=== PATIENT | female | born 1945 | race Caucasian/White ===

== ENCOUNTER 2022-06-02 19:24 | Inpatient (IN) | payer MEDICARE, SELFPAY ==
--- NOTE | ~2022-06-02 | XR_ITS ---
Portable chest x-ray Comparison: 01/09/2012 Clinical History: CHF Findings: There is minimal patchy haziness to the lung bases bilaterally. No pleural effusion or pne umothorax. Cardiomediastinal silhouette is stable. Bones and soft tissues are unremarkable. Impression: Minimal patchy bibasilar haziness. Findings could reflect minimal pulmonary edema versus any possibil ity of atypical infection. Reviewed, dictated and finalized at location [] D PANNER Impression: Minimal patchy bibasilar haziness. Findings could reflect minimal pulmonary noe ma versus any possibility of atypical infection.
[2022-06-02 19:47] VITALS: BMI 26.4
[2022-06-02 20:00] VITALS: O2SAT 94
--- NOTE | 2022-06-02 20:20 | ADMGEN ---
This patient, Janna Bustos, was admitted to 2nd Floor Room 205-1. Patient/family oriented to hospital policies and general routines including ID bracelet, bed and alarms, visiting hours, pain management, procedures, bathroom and other care routines, personal items, smoking policy, room service/diet, and visiting hours. Daughter to bring in paperwork. Daughter has unpacked her belongings in closet. Information on how to activate the Rapid Response Team has been discussed. Patient/Family are encouraged to report perceived risks to care and to ask questions if they do not understand what they are told or what they should do.
[2022-06-02 23:31] VITALS: BP 163/69; PULSE 74; RESP 16; TEMP 36.3; O2SAT 94
[2022-06-03] MEDS: BENZONATATE 100 MG CAPSULE PO (00:47)
--- NOTE | 2022-06-03 03:58 | PC.NURSE ---
0300 report from roseann du. resumed care no questions or concerns at this time. 0325 pt sleeping. respirations even and unlabored. call voss and bedside table in reach.
--- NOTE | 2022-06-03 05:01 | PC.NURSE ---
pt denies nausea or need for nausea medications at this time
--- NOTE | 2022-06-03 06:48 | PC.NURSE ---
report to SRINIVASAN Kidd
[2022-06-03 08:00] VITALS: BP 155/64; PULSE 76; RESP 16; TEMP 36.6; O2SAT 93
--- NOTE | 2022-06-03 08:59 | PM.IMHP ---
H&P: HPI History of Present Illness Date/Time: 06/03/22 08:59 Chief Complaint: Weakness, Pneumonia, Hyponatremia Narrative: this is is a 76-year-old female that presented to [facility] with community-acquired pneumonia was treated with IV antibiotics given some IV steroids did not require oxygen and was found to be hypokalemic that was treated with oral potassium patient has a past medical history of anxiety, hyperlipidemia, multiple pulmonary nodules, osteopenia, and spinal stenosis CTA was negative for C for PE patient's labs on discharge is WBC 6.8, hemoglobin 10.7, platelets 269, sodium was 136, potassium 3.4, glucose was 112, BUN 7, creatinine 0.47. Patient has come to us for a swing bed at this time where she will try to get stronger so that she can go home with her family. Review of Systems Review of Systems: Shortness of breath, tired, weakness All systems reviewed & are unremarkable except as noted in HPI and below PMFSH Social History Social History Smoking status: Never smoker Second hand tobacco smoke exposure: Yes Alcohol intake: never Substance use: never Substance use type: does not use Lack of Transportation: No Lack of Food: Never True Current Housing: I Have Housing Concerned About Future Housing: No Difficulty Paying Gas/Electric Bills: No Difficulty Paying for Meds: No Currently Unemployed: No Education: High School Diploma/GED Difficulty w/ Childcare or Family Care: No Living arrangements: alone Occupation/Education: retired Gender identity (if verbalized by the patient): Female Sexual Orientation (if Verbalized by the Patient): Straight or Heterosexual Spiritual care concerns: No Agree to blood products: Yes Meds Home Medications and Allergies Home Medications Medication Instructions Recorded Confirmed Type alprazolam 0.25 mg tablet 0.25 mg PO HS PRN Sleep 06/02/22 06/02/22 History azithromycin 250 mg tablet 250 mg PO ONCE 06/02/22 06/02/22 History benzonatate 100 mg capsule 100 mg PO TID PRN Cough 06/02/22 06/02/22 History betamethasone dipropionate 0.05 % 1 applic topical DAILY PRN Rash 06/02/22 06/02/22 History topical cream cefdinir 300 mg capsule 600 mg PO DAILY 06/02/22 06/02/22 History clobetasol 0.05 % topical cream 1 applic topical BID 06/02/22 06/02/22 History furosemide 20 mg tablet 20 mg PO DAILY 06/02/22 06/02/22 History mometasone 0.1 % topical solution 1 applic topical DAILY PRN Itching 06/02/22 06/02/22 History naproxen 500 mg tablet 500 mg PO BID 06/02/22 06/02/22 History triamcinolone acetonide 0.1 % 1 applic topical BID PRN Itching 06/02/22 06/02/22 History topical cream Allergies Allergy/AdvReac Type Severity Reaction Status Date / Time adhesive tape Allergy Intermediate Rash Verified 06/02/22 19:45 codeine Allergy Vomiting Verified 06/02/22 19:46 Vital Signs Vital Signs - 24 hr 06/02/22 20:00 06/02/22 23:31 Temperature 97.4 F L Pulse Rate 74 Respiratory Rate 16 Blood Pressure 163/69 H Pulse Oximetry 94 94 Oxygen Delivery Room Air Room Air Exam Narrative: GENERAL Ill-appearing, well-nourished, and in no acute distress. HEAD:Normocephalic, atraumatic. EYES: PERRLA and EOMI. ENT: Nares clear, no rhinorrhea or epistaxis. Mucous membranes moist. CHEST: Clear to diminished auscultation. No respiratory distress. HEART: Regular rate and rhythm. Normal peripheral pulses. ABDOMEN: Soft, nontender, nondistended, normal active bowel sounds. EXTREMITIES: Normal range of motion. No edema. SKIN: Warm, dry, no rash. NEURO: No focal deficits. Alert and oriented x3. lethargy Assessment and Plan Assessment and plan (1) Pneumonia: Code(s): J18.9 - Pneumonia, unspecified organism Status: Acute Assessment and Plan: Oral antibiotic Inhaler as indicated oxygen as needed steroids tapered dose (2) Shortness of forest
[2022-06-03] MEDS: FUROSEMIDE 20 MG TABLET PO (09:01)
[2022-06-03] MEDS: CEFDINIR 300 MG CAPSULE 600 MG PO (09:01)
[2022-06-03] MEDS: AZITHROMYCIN 250 MG TABLET PO (09:02)
[2022-06-03] MEDS: CLOBETASOL PROPIONATE 0.05% CREAM 30 GM 1 APPLIC TOPICAL ×2 (09:04→16:59)
[2022-06-03] MEDS: TRIAMCINOLONE ACET 0.1% CREAM 15 GM TUBE 1 APPLIC TOPICAL (09:05)
[2022-06-03 16:00] VITALS: BP 130/61; PULSE 74; RESP 18; TEMP 36.6; O2SAT 95
[2022-06-04] VITALS: BP 179/63; PULSE 90; RESP 20; TEMP 35.7; O2SAT 93
[2022-06-04 07:20] LABS: Anion Gap 5 mmol/L (8-16); Blood Urea Nitrogen 9 mg/dL (7-18); Calcium 8.5 mg/dL (8.5-10.1); Carbon Dioxide 31 mmol/L (21-32); Chloride 104 mmol/L (98-108); Estimated CRCL calculation 54 ml/min; Estimated Glomerular Filt Rate > 60; Glucose 113 mg/dL (70-99); Osmolality Calculated 289 mOsm/kg (285-295); Potassium 3.6 mmol/L (3.5-5.1); Sodium 140 mmol/L (136-145)
[2022-06-04 08:00] VITALS: BP 136/59; PULSE 74; RESP 16; TEMP 36.6; O2SAT 91
[2022-06-04] MEDS: CEFDINIR 300 MG CAPSULE 600 MG PO (08:28)
[2022-06-04] MEDS: FUROSEMIDE 20 MG TABLET PO (08:29)
[2022-06-04] MEDS: CLOBETASOL PROPIONATE 0.05% CREAM 30 GM 1 APPLIC TOPICAL ×2 (08:29→17:17)
[2022-06-04] MEDS: amLODIPine BESYLATE 5 MG TABLET PO (10:05)
[2022-06-04 16:00] VITALS: BP 149/68; PULSE 77; RESP 16; TEMP 36.1; O2SAT 94
[2022-06-05] VITALS: BP 154/67; PULSE 64; RESP 20; TEMP 35.7; O2SAT 94
[2022-06-05 07:45] VITALS: BP 148/71; PULSE 82; RESP 18; TEMP 37.1; O2SAT 93
[2022-06-05] MEDS: NAPROXEN 250 MG TABLET 500 MG PO ×2 (09:11→17:43)
[2022-06-05] MEDS: FUROSEMIDE 20 MG TABLET PO (09:12)
[2022-06-05] MEDS: amLODIPine BESYLATE 5 MG TABLET PO (09:12)
[2022-06-05] MEDS: CEFDINIR 300 MG CAPSULE 600 MG PO (09:12)
[2022-06-05] MEDS: CLOBETASOL PROPIONATE 0.05% CREAM 30 GM 1 APPLIC TOPICAL ×2 (09:13→17:43)
[2022-06-05 16:15] VITALS: BP 141/63; PULSE 83; RESP 20; TEMP 36.5; O2SAT 99
[2022-06-05] MEDS: BENZONATATE 100 MG CAPSULE PO (23:47)
[2022-06-05] MEDS: ACETAMINOPHEN 325 MG TABLET 650 MG PO (23:48)
[2022-06-06] VITALS: BP 147/73; PULSE 84; RESP 18; TEMP 36.6; O2SAT 95
[2022-06-06 07:35] VITALS: BP 127/59; PULSE 81; RESP 18; TEMP 36.2; O2SAT 96
[2022-06-06] MEDS: CEFDINIR 300 MG CAPSULE 600 MG PO (09:11)
[2022-06-06] MEDS: FUROSEMIDE 20 MG TABLET PO (09:11)
[2022-06-06] MEDS: CLOBETASOL PROPIONATE 0.05% CREAM 30 GM 1 APPLIC TOPICAL ×2 (09:11→17:55)
[2022-06-06] MEDS: amLODIPine BESYLATE 5 MG TABLET PO (09:11)
[2022-06-06] MEDS: NAPROXEN 250 MG TABLET 500 MG PO ×2 (09:12→17:56)
[2022-06-06 16:25] VITALS: BP 134/58; PULSE 87; RESP 18; TEMP 36.2; O2SAT 96
[2022-06-06 23:23] VITALS: BP 152/64; PULSE 82; RESP 20; TEMP 36.1; O2SAT 96
[2022-06-07] MEDS: BENZONATATE 100 MG CAPSULE PO (01:10)
[2022-06-07 08:00] VITALS: BP 140/60; PULSE 74; RESP 18; TEMP 36.4; O2SAT 95
[2022-06-07] MEDS: amLODIPine BESYLATE 5 MG TABLET PO (09:04)
[2022-06-07] MEDS: CEFDINIR 300 MG CAPSULE 600 MG PO (09:05)
[2022-06-07] MEDS: CLOBETASOL PROPIONATE 0.05% CREAM 30 GM 1 APPLIC TOPICAL ×2 (09:05→17:33)
[2022-06-07] MEDS: FUROSEMIDE 20 MG TABLET PO (09:05)
[2022-06-07] MEDS: NAPROXEN 250 MG TABLET 500 MG PO ×2 (09:06→17:32)
[2022-06-07] MEDS: ACETAMINOPHEN 325 MG TABLET 650 MG PO (11:53)
--- NOTE | 2022-06-07 12:52 | PM.EVENT ---
Event Note Event Note Event Note: spoke with patient's POA who was concerned about a lab that was completed at an outside hospital her BNP. I explained to patient's POA that a BnP can be elevated for several reasons but I will order a chest x-ray to rule out uncompensated congestive heart failure. patient denies any shortness of breath she does not have any lower extremity edema. She does complain discomfort when she inhales she was previously diagnosed with pneumonia. Chest x-ray pending
[2022-06-07 13:29] LABS: Hematocrit 37.4 % (35.0-42.0); Hemoglobin 12.5 g/dL (11.7-13.8); Mean Corpuscular HGB Conc 33.4 g/dL (32.0-36.0); Mean Corpuscular Hemoglobin 29.5 pg (27.0-31.0); Mean Corpuscular Volume 88.2 fL (78.0-102.0); Mean Platelet Volume 9.1 fl (9.2-11.8); Platelet Count Result 462 K/mm3 (150-420); Red Blood Count 4.24 M/mm3 (4.20-5.40); Red Cell Distribution Width 11.7 % (11.6-14.4); White Blood Count 5.7 K/mm3 (4.8-10.8)
[2022-06-07 13:40] LABS: Anion Gap 7 mmol/L (8-16); Blood Urea Nitrogen 16 mg/dL (7-18); Calcium 8.5 mg/dL (8.5-10.1); Carbon Dioxide 30 mmol/L (21-32); Chloride 99 mmol/L (98-108); Estimated CRCL calculation 37 ml/min; Estimated Glomerular Filt Rate 53; Glucose 118 mg/dL (70-99); Osmolality Calculated 284 mOsm/kg (285-295); Potassium 3.7 mmol/L (3.5-5.1); Sodium 136 mmol/L (136-145)
[2022-06-07 16:00] VITALS: BP 127/59; PULSE 84; RESP 18; TEMP 35.9; O2SAT 96
[2022-06-07 23:57] VITALS: BP 123/60; PULSE 80; RESP 18; TEMP 36.2; O2SAT 97
[2022-06-08 08:00] VITALS: BP 132/64; PULSE 78; RESP 18; TEMP 36.2; O2SAT 97
[2022-06-08] MEDS: CLOBETASOL PROPIONATE 0.05% CREAM 30 GM 1 APPLIC TOPICAL ×2 (08:54→17:23)
[2022-06-08] MEDS: NAPROXEN 250 MG TABLET 500 MG PO ×2 (08:56→17:23)
[2022-06-08] MEDS: amLODIPine BESYLATE 5 MG TABLET PO (08:57)
[2022-06-08] MEDS: FUROSEMIDE 20 MG TABLET PO (08:57)
[2022-06-08 15:33] VITALS: BP 138/74; PULSE 76; RESP 16; TEMP 36.3; O2SAT 96
[2022-06-09] VITALS: BP 148/64; PULSE 80; RESP 20; TEMP 35.9; O2SAT 96
[2022-06-09 08:00] VITALS: BP 142/64; PULSE 74; RESP 16; TEMP 36.5; O2SAT 97
[2022-06-09] MEDS: FUROSEMIDE 20 MG TABLET PO (08:52)
[2022-06-09] MEDS: NAPROXEN 250 MG TABLET 500 MG PO ×2 (08:52→17:09)
[2022-06-09] MEDS: amLODIPine BESYLATE 5 MG TABLET PO (08:53)
[2022-06-09] MEDS: CLOBETASOL PROPIONATE 0.05% CREAM 30 GM 1 APPLIC TOPICAL ×2 (08:54→17:09)
[2022-06-09 16:00] VITALS: BP 128/64; PULSE 74; RESP 16; TEMP 36.2; O2SAT 97
--- NOTE | 2022-06-09 21:58 | PM.DS ---
DS: Admitting Diagnosis Discharge Date 06/10/2022 Admitting Diagnosis rehab/ weakness DS: Discharge Diagnosis Discharge Diagnosis (1) Pneumonia: Code(s): J18.9 - Pneumonia, unspecified organism Status: Acute Assessment and Plan: Oral antibiotic Inhaler as indicated oxygen as needed steroids tapered dose 06/10/2022 resolved (2) Shortness of breath: Code(s): R06.02 - Shortness of breath Status: Acute Assessment and Plan: Oxygen as indicated breathing treatment prn monitor vitals 06/10/2022 resolved (3) Weakness: Code(s): R53.1 - Weakness Status: Acute Assessment and Plan: PT/OT Evaluate and treat 06/10/2022 outpatient PT (4) Anxiety: Code(s): F41.9 - Anxiety disorder, unspecified Status: Acute Assessment and Plan: Prn medication as indicated (5) HLD (hyperlipidemia): Code(s): E78.5 - Hyperlipidemia, unspecified Status: Acute Assessment and Plan: daily medication as home dosage (6) Renal mass: Code(s): N28.89 - Other specified disorders of kidney and ureter Status: Acute Assessment and Plan: monitor for s/s of uti (7) GERD (gastroesophageal reflux disease): Code(s): K21.9 - Gastro-esophageal reflux disease without esophagitis Status: Acute Assessment and Plan: PPI as indicated DS: Summary Hospital Course Reason for hospitalization: rehab weakness Hospital Course: this is is a 76-year-old female that [facility] was treated with IV antibiotics given some IV steroids did not require oxygen and was found to be hypokalemic that was treated with oral potassium patient has a past medical history of anxiety, hyperlipidemia, multiple pulmonary nodules, osteopenia, and spinal stenosis CTA was negative for C for PE patient's labs on discharge is WBC 6.8, hemoglobin 10.7, platelets 269, sodium was 136, potassium 3.4, glucose was 112, BUN 7, creatinine 0.47. Patient has came to us for a swing bed?. Patient denies SOB, CP, palpitation, extremity numbness, lightheadness, dizziness, constipation, diarrhea, or chills or fever. Patient agree that they are ready for discharge and discharge plan. Patient able to ambulate 100 ft with standby assist. patient will discharge home with PT. Discharge instructions reviewed with patient, as well as provided in writing per nursing staff. The instructions also include specific and strict return/GO TO THE ER as well as f/u information. All questions have been answered, and the patient and/or family deny any further questions with discharge and discharge plan. Time Spent with Patient Time attestation: Total time spent providing and/or coordinating discharge services: Exam Narrative: GENERAL Ill-appearing, well-nourished, and in no acute distress. HEAD:Normocephalic, atraumatic. EYES: PERRLA and EOMI. ENT: Nares clear, no rhinorrhea or epistaxis. Mucous membranes moist. CHEST: Clear to diminished auscultation. No respiratory distress. HEART: Regular rate and rhythm. Normal peripheral pulses. ABDOMEN: Soft, nontender, nondistended, normal active bowel sounds. EXTREMITIES: Normal range of motion. No edema. SKIN: Warm, dry, no rash. NEURO: No focal deficits. Alert and oriented x3. lethargy Discharge Plan Discharge Attending physician on discharge: Aaron Martínez Discharging Clinician: Ninoska Escudero Anticipated Discharge Date/Time: 06/09/22 21:52 Patient Disposition: Home Health Service Activity: as tolerated Diet: low sodium Discharge Instructions: Follow up with Primary provider in 1-2 weeks Take medications as prescribed Patient Instructions 1.Fluid intake restricted to 1 to 1.5 L a day. 2.Salt intake restricted: 1 teaspoon of salt equals 2.2 g of sodium. Therefore, patients are advised not to exceed 1 teaspoon of salt a day. They nancy
[2022-06-10] VITALS: BP 150/64; PULSE 86; RESP 18; TEMP 36.1; O2SAT 95
[2022-06-10 07:45] VITALS: BP 153/71; PULSE 87; RESP 18; TEMP 36.2; O2SAT 94
[2022-06-10] MEDS: NAPROXEN 250 MG TABLET 500 MG PO (09:01)
[2022-06-10] MEDS: FUROSEMIDE 20 MG TABLET PO (09:01)
[2022-06-10] MEDS: amLODIPine BESYLATE 5 MG TABLET PO (09:01)
[2022-06-10] MEDS: CLOBETASOL PROPIONATE 0.05% CREAM 30 GM 1 APPLIC TOPICAL (09:02)
--- NOTE | 2022-06-10 12:50 | PC.NURSE ---
Patient discharging home with [facility] to follow. All patients belongings gathered together and sent home with patient. All discharge instructions and education reviewed with patient and patients daughter. Both parties report understanding. All questions answered. Patient taken down to front door via wheelchair by this nurse. Left via private vehicle with daughter.
--- NOTE | 2022-06-12 13:15 | PC.NURSE ---
Pt states she received and understood her discharge instructions. Pt also states you guys were fantastic with everything .
== END 2022-06-10 12:50 | disposition home health service (06) | DRG 947 ==
PROVIDERS: Nurse Practitioner; Nurse Practitioner Family; Admitting Provider Internal Medicine; Visit Provider Internal Medicine
DX: R53.1 Weakness (principal); J18.9 Pneumonia, unspecified organism; E78.5 Hyperlipidemia, unspecified; K21.9 Gastro-esophageal reflux disease without esophagitis; M48.00 Spinal stenosis, site unspecified; F41.9 Anxiety disorder, unspecified; Z86.711 Personal history of pulmonary embolism
CPT/HCPCS: 36415; 71045; 80048; 85027; 97110; 97112; 97162; 97165; 97530; 97535; A9270

== ENCOUNTER 2022-07-31 15:13 | Outpatient (CLI) | payer MEDICARE, SELFPAY ==
[2022-07-31 15:58] LABS: Anion Gap 7 mmol/L (8-16); Blood Urea Nitrogen 20 mg/dL (7-18); Calcium 8.9 mg/dL (8.5-10.1); Carbon Dioxide 30 mmol/L (21-32); Chloride 103 mmol/L (98-108); Estimated Glomerular Filt Rate > 60; Glucose 117 mg/dL (70-99); Magnesium 2.1 mg/dL (1.8-2.4); Osmolality Calculated 293 mOsm/kg (285-295); Sodium 140 mmol/L (136-145)
== END 2022-07-31 15:14 | disposition home or self-care (01) ==
LOC: CHSLAB 15:16
PROVIDERS: PCP Family Medicine; Visit Provider Internal Medicine Cardiovascular Disease
DX: I50.9 Heart failure, unspecified (principal)
CPT/HCPCS: 36415; 80048; 83735

== ENCOUNTER 2024-02-11 13:25 | Emergency (ER) | payer MEDICARE, SELFPAY ==
[2024-02-11] VITALS (19 sets, daily range): BP systolic 119–133; BP diastolic 50–61; PULSE 61–75; RESP 17–27; TEMP 35.8–36.1; O2SAT 92–100
--- NOTE | ~2024-02-11 | XR_ITS ---
XR chest 1V portable Ordering provider: Cesar Blanco DO History: 78 years Female with . chronic cough, burning throat, dyspnea X 1 month . Comparison: June 07, 2022 FINDINGS: MEDIASTINUM: The cardiac silhouette is not enlarged. LUNGS: No infiltrates, effusions or pneumothorax. OTHER: No free air under the diaphragm. Degenerative changes of the spine. IMPRESSION: No acute cardiopulmonary pathology. Reviewed, dictated and finalized at location A.
--- NOTE | 2024-02-11 13:36 | ECG_ITS ---
Test Date: 2024-02-11 13:47:04 Measurements Intervals [place] Rate: 65 P: 48 NM: 221 QRS: -14 QRSD: 102 T: 46 QT: 392 QTc: 410 Interpretive Statements SINUS RHYTHM WITH FIRST DEGREE AV BLOCK INCOMPLETE RIGHT BUNDLE BRANCH BLOCK No previous ECG available for comparison Electronically Signed On 02-12-2024 10:08:21 CDT by Yun Hemphill M.D.
--- NOTE | 2024-02-11 13:41 | ED.GENADULT ---
HPI - General Adult General Chief complaint: Shortness of Breath/Dyspnea Stated complaint: upper Time Seen by Provider: 02/11/24 13:31 History of Present Illness HPI narrative: Janna is a 78F with a PMH of HFpEF, HLD, and anxiety that presented to the ED not feeling well. She has had mild dyspnea, a cough, and aches for a month. She saw her PCP that treated her with a Zpack but she did not improve. Over the last few days she has become worse with more fatigue, dyspnea and aches. No chest pain, N/V but she did have one episode of diarrhea. Related Data Home Medications Medication Instructions Recorded Confirmed alprazolam 0.25 mg tablet 0.25 mg PO HS PRN Sleep 06/02/22 02/11/24 clobetasol 0.05 % topical cream 1 applic topical BID 06/02/22 02/11/24 mometasone 0.1 % topical solution 1 applic topical DAILY PRN Itching 06/02/22 02/11/24 ascorbate calcium (vitamin C) 500 250 mg PO DAILY 07/31/22 02/11/24 mg tablet cholecalciferol (vitamin D3) 10 10 mcg PO DAILY 07/31/22 02/11/24 mcg (400 unit) capsule mecobalamin (vitamin B12) 500 mcg 500 mcg PO DAILY 07/31/22 02/11/24 chewable tablet mometasone 50 mcg/actuation nasal 2 spray intranasal DAILY 07/31/22 02/11/24 spray naproxen sodium 220 mg capsule 220 mg PO BID 07/31/22 02/11/24 (Aleve) furosemide 20 mg tablet 20 mg PO DAILY 03/26/23 02/11/24 alendronate 70 mg tablet 70 mg PO WEEKLY 09/24/23 02/11/24 venlafaxine 75 mg tablet,extended 75 mg PO DAILY 09/24/23 02/11/24 release 24 hr cromolyn 100 mg/5 mL oral 100 mg PO QID 02/11/24 02/11/24 concentrate Allergies Allergy/AdvReac Type Severity Reaction Status Date / Time adhesive tape Allergy Intermediate Rash Verified 02/11/24 13:36 codeine Allergy Vomiting Verified 02/11/24 13:36 grape Allergy Unknown Verified 02/11/24 13:36 Review of Systems Review of Systems: All systems reviewed & are unremarkable except as noted in HPI and [facility] History Medical History Bilateral leg edema Fatigue Hyperglycemia Hypokalemia Lesion of right little shell tribe ureter Lesion of spleen Lung nodule Overweight Vitamin D deficiency Social History Social History Smoking status: Never smoker Second hand tobacco smoke exposure: Yes Alcohol intake: never Substance use: never Substance use type: does not use Lack of Transportation: No Lack of Food: Never True Current Housing: I Have Housing Concerned About Future Housing: No Difficulty Paying Gas/Electric Bills: No Difficulty Paying for Meds: No Currently Unemployed: No Education: High School Diploma/GED Difficulty w/ Childcare or Family Care: No Living arrangements: alone Occupation/Education: retired Gender identity (if verbalized by the patient): Female Sexual Orientation (if Verbalized by the Patient): Straight or Heterosexual Spiritual care concerns: No Agree to blood products: Yes Exam Const: General: cooperative, healthy appearing, comfortable, no acute distress, well developed, alert, awake and Physically active Orientation/consciousness: oriented to person, oriented to place and oriented to time HENMT: Head: normal to inspection, normocephalic and atraumatic Ears: hearing grossly normal bilaterally and external ears normal Face/Nose/Sinus: Normal external nose present Eyes: General: appearance normal, both eyes and all related structures Periorbital: periorbital findings normal Sclera: sclerae normal Pupils: Equal, round and reactive pupils present Neck: Neck: normal visual inspection Chest: Chest palpation & inspection: normal inspection of the chest Resp: Effort & Inspection: normal respiratory effort, able to speak in complete sentences and no respiratory distress Other: tachypnea Cardio: Jugular venous distension: no JVD Rate: regular rate Rhythm: regular rhythm Skin: General skin
[2024-02-11 13:55] LABS: Eosinophils Absolute Auto 0.01 K/mm3 (0.02-0.50); Eosinophils Percent Auto 0.2 % (1.0-6.0); Hematocrit 38.7 % (35.0-42.0); Hemoglobin 13.4 g/dL (11.7-13.8); Immature Granulocyte Absolute 0.02 K/mm3 (0.00-0.00); Immature Granulocyte Percent A 0.4 % (0.0-0.0); Lymphocytes Absolute Auto 0.61 K/mm3 (1.10-4.50); Lymphocytes Percent Auto 12.1 % (18.0-42.0); Mean Corpuscular HGB Conc 34.6 g/dL (32-36); Mean Corpuscular Hemoglobin 29.9 pg (27.0-31.0); Mean Corpuscular Volume 86.4 fL (78.0-102.0); Mean Platelet Volume 9.1 fl (9.2-11.8); Monocytes Percent Auto 7.9 % (2.0-11.0); Neutrophils Percent Auto 79.4 % (50.0-70.0); Platelet Count Result 387 K/mm3 (150-420); Red Blood Count 4.48 M/mm3 (4.20-5.40)
[2024-02-11 14:07] LABS: Prothrombin Time 10.6 Seconds (9.50-12.1)
[2024-02-11 14:20] LABS: Alanine Aminotransferase 23 U/L (14-59); Albumin Level 3.3 g/dL (3.4-5.0); Alkaline Phosphatase 103 U/L (46-116); Anion Gap 7 mmol/L (4-12); Aspartate Amino Transferase 17 U/L (15-37); Blood Urea Nitrogen 15 mg/dL (7-18); Calcium 8.7 mg/dL (8.5-10.1); Carbon Dioxide 30 mmol/L (21-32); Chloride 100 mmol/L (98-108); Estimated CRCL calculation 41 ml/min; Estimated Glomerular Filt Rate > 60; Glucose 162 mg/dL (70-99); NT Pro B Type Natriuretic Pept 256 pg/mL (0-450); Osmolality Calculated 288 mOsm/kg (285-295); Potassium 3.9 mmol/L (3.5-5.1); Sodium 137 mmol/L (136-145); Total Protein 7.3 g/dL (6.4-8.2)
[2024-02-11 14:21] LABS: Troponin I < 4.0 ng/L (0.00-60.4)
[2024-02-11 14:33] LABS: Influenza A QL RT-PCR Negative (Negative); Influenza B QL RT-PCR Negative (Negative); RSV RNA, RT-PCR Negative (Negative); SARS-CoV-2 RNA PCR Negative (Negative)
== END 2024-02-11 15:40 | disposition home or self-care (01) ==
PROVIDERS: Emergency Provider Family Medicine; PCP Family Medicine
DX: B34.9 Viral infection, unspecified (principal); R53.83 Other fatigue; E78.5 Hyperlipidemia, unspecified; Z79.899 Other long term (current) drug therapy; Z20.822 Contact with and (suspected) exposure to COVID-19
CPT/HCPCS: 36415; 71045; 80053; 83880; 84484; 85025; 85610; 87637; 93005; 99284

== ENCOUNTER 2024-12-15 08:43 | Outpatient (CLI) | payer MEDICARE, SELFPAY ==
--- NOTE | 2024-12-15 08:50 | EST_ITS ---
Patient Info Name: Janna Bustos Age: 79 years : 1945 Gender: Female Ht: 65 in Wt: 146 lbs BSA: 1.75 m2 HR: 66 bpm BP: 148 / 70 mmHg Heart Rhythm: Sinus Rhythm Technical Quality: Good Exam Date: 12/15/2024 8:50 AM Patient Status: O Admit Date: 12/15/2024 Exam Type: CA stress yohan w NM A regadenoson stress test was performed. Staff Referring Physician: Balaji Ballesteros DO Attending Provider: Balaji Ballesteros DO Summary 1. 1. Negative lexiscan stress test for ischemic ST changes by ECG criteria. 2. 2. Baseline hypertension. 3. 3. Nuclear scan to follow and will be reported separately. Please correlate with it. History/Risk Factors Hypertension: Yes Dyslipidemia: Yes Protocol: LEXISCAN Stress ECG Details Stage: REST Duration (min): 2 min : 13 sec HR (bpm): 67 SBP (mmHg): 148 DBP (mmHg): 70 Stage: REST Duration (min): 11 min : 18 sec HR (bpm): 69 SBP (mmHg): 148 DBP (mmHg): 70 Stage: STAGE 1 Duration (min): 0 min : 48 sec HR (bpm): 73 SBP (mmHg): 148 DBP (mmHg): 70 Stage: RECOVERY Duration (min): 0 min : 12 sec HR (bpm): 76 SBP (mmHg): 148 DBP (mmHg): 70 Stage: RECOVERY Duration (min): 1 min : 12 sec HR (bpm): 101 SBP (mmHg): 148 DBP (mmHg): 70 Stage: RECOVERY Duration (min): 2 min : 12 sec HR (bpm): 85 SBP (mmHg): 154 DBP (mmHg): 70 Stage: RECOVERY Duration (min): 3 min : 12 sec HR (bpm): 87 SBP (mmHg): 149 DBP (mmHg): 70 Stage: RECOVERY Duration (min): 4 min : 12 sec HR (bpm): 85 SBP (mmHg): 152 DBP (mmHg): 72 Stage: RECOVERY Duration (min): 5 min : 12 sec HR (bpm): 82 SBP (mmHg): 152 DBP (mmHg): 71 Stage: RECOVERY Duration (min): 6 min : 12 sec HR (bpm): 83 SBP (mmHg): 154 DBP (mmHg): 73 Stage: RECOVERY Duration (min): 6 min : 26 sec HR (bpm): 81 SBP (mmHg): 154 DBP (mmHg): 73 Rest HR: 69 bpm Peak HR: 110 bpm Rest Sys BP: 148 mmHg Peak Sys BP: 154 mmHg Max Pred HR: 140 bpm % Max Pred HR: 79 % Target HR: 119 bpm Max RPP: 16,940 bpm*mmHg BP Response: Normal blood pressure response Termination Reason: Completed Protocol Cardiac Symptoms: None Total Time: 0 min : 48 sec Rest Polo BP: 70 mmHg Peak Polo BP: 73 mmHg Total Dose: 0.4 mg Resting ECG Sinus rhythm, BRWP. Stress ECG No abnormal ST/T wave changes. Arrhythmias None. Report Signatures
--- NOTE | 2024-12-15 13:17 | WPDCARIOSTRE ---
Nuclear Stress Test INDICATIONS Indications: Dyspnea PROCEDURE Procedure Performed: Myocardial Perf Spect-Multi Procedure: Patient underwent a lexiscan stress test and immediately was injected with 31.9 mCi of cardiolyte. Multiple tomographic images were obtained. These are of good quality. There is no perfusion defects with stress imaging. A separate resting images were obtained after patient was injected with 10.3 mCi of cardiolyte. Multiple tomographic images were obtained. These are of good quality. There is no perfusion defects with rest imaging. CONCLUSION Conclusion: 1. Normal myocardial perfusion imaging demonstrating no perfusion defects with stress or rest imaging. 2. No evidence of reversible ischemia. 3. Left ventriculogram demonstrates normal measured ejection fraction of 71% with no wall motion abnormalities. 4. TID score 1.1 is not elevated.
== END 2024-12-15 08:44 | disposition home or self-care (01) ==
PROVIDERS: PCP Family Medicine; Visit Provider Internal Medicine Cardiovascular Disease
DX: R06.09 Other forms of dyspnea (principal)
CPT/HCPCS: 78452; 93017; A9502; J2785

== ENCOUNTER 2025-01-24 20:09 | Observation (INO) | payer MEDICARE, SELFPAY ==
--- NOTE | ~2025-01-24 | XR_ITS ---
EXAM: XR foot LT 2V DATE: 01/25/2025 09:23 HISTORY: Fall, Lt. foot pain x1 day . COMPARISON: None available. FINDINGS: Osteopenia. No fracture or dislocation. No lytic or blastic lesion. Hallux valgus. Mild de generative change at the first MTP joint and multiple midfoot joints. Achilles and plantar enthesopat hy. No erosion or periosteal change. Soft tissues within normal limits. IMPRESSION: No acute osseous finding in the left foot. Reviewed, dictated and finalized at location K.
--- NOTE | ~2025-01-24 | CT_ITS ---
EXAMINATION: CT cervical spine wo con DATE: 01/24/2025 20:53 INDICATION: FALL. LEFT SIDE NECK PAIN. TECHNIQUE: Computed tomography (CT) of the cervical spine was performed without intravenous contrast. Automated exposure control and iterative reconstruction technique were employed. The dose-length pro duct was 183.41 mGy-cm. COMPARISON: None. FINDINGS: Vertebral Body Alignment: Trace anterolistheses at C4-5 and C7-T1, presumably on a degenerative basis . Mild focal kyphosis at C5-6. Craniocervical and atlantoaxial alignment: Moderate degenerative change. Alignment intact. Osseous structures/fracture: No evidence of a lytic or blastic process in the visualized spine. No e vidence of acute fracture. Cervical soft tissues: The paraspinal soft tissues planes are maintained. Biapical pleural scarring. Degenerative changes: Degenerative changes, without severe neural foraminal or central canal narrowin g. IMPRESSION: No acute fracture or traumatic malalignment in the cervical spine. Reviewed, dictated and finalized at location K.
--- NOTE | ~2025-01-24 | CT_ITS ---
EXAMINATION: CT brain wo con DATE: 01/24/2025 20:52 INDICATION: accidental fall. . TECHNIQUE: Computed tomography (CT) of the head was performed without intravenous contrast. The mA wa s adjusted according to patient size. Iterative reconstruction technique was employed. The dose-lengt h product was 605.33 mGy-cm. COMPARISON: None. FINDINGS: No acute intracranial hemorrhage or extra-axial fluid collection. No hydrocephalus, mass, or herniation. No acute ischemic infarct. Unremarkable dural venous sinus attenuation. No acute osseous abnormality. The aerated spaces are clear. Moderate atrophy and chronic white matter change. Atherosclerotic intracranial calcification. Partial ly empty sella. IMPRESSION: No acute intracranial process. Reviewed, dictated and finalized at location K.
--- NOTE | ~2025-01-24 | CT_ITS ---
EXAMINATION: CT diagnostic chest wo con DATE: 01/24/2025 20:54 INDICATION: FALL. LEFT SIDE CHEST WALL PAIN. LEFT LATERAL RIB PAIN. TECHNIQUE: Computed tomography (CT) of the chest was performed with 100 mL Omnipaque-350 intravenous contrast. Automated exposure control and iterative reconstruction technique were employed. The dose-l ength product was 490.55 mGy-cm. COMPARISON: X-ray chest 01/09/2012. FINDINGS: CHEST: Thoracic aorta: No significant dilation. Mild atherosclerotic calcification. Lung parenchyma and airways: Scattered calcified granulomas. Biapical pleural scarring. Bibasilar sca r/atelectasis. Patent airways. Thoracic inlet, axillae and chest wall: No thyroid or soft tissue mass. No axillary lymphadenopathy. Mediastinum: No mass or lymphadenopathy. Heart and pericardium: Normal heart size. No pericardial effusion. Mild aortic valve calcification. Coronary artery calcifications: Mild. Pleura: No effusion or mass. Upper abdomen: 1.2 cm indeterminate density exophytic right midpole lesion. Hyperdense left renal pro teinaceous or hemorrhagic cyst. Small splenic cyst or hemangioma. Uncomplicated duodenal diverticulum . Thoracic bones: Nondisplaced fractures of the left eighth anterolateral, and ninth lateral, and 10th posterior ribs. Chronic mild height loss at T7 and T8. Chronic appearing mild burst fracture at T11. IMPRESSION: Nondisplaced fractures of left eighth anterolateral, nidus lateral, and 10th posterior ribs. 1.2 cm indeterminate density exophytic right midpole lesion, recommend timely outpatient CT or MRI wi thout and with contrast for further characterization. Reviewed, dictated and finalized at location K. IMPRESSION: Nondisplaced fractures of left eighth anterolateral, nidus lateral, and 10th po sterior ribs. 1.2 cm indeterminate density exophytic right midpole lesion, recommend timely o utpatient CT or MRI without and with contrast for further characterization.
[2025-01-24 20:09] VITALS: BP 175/71; PULSE 70; RESP 16; TEMP 35.9; O2SAT 100
--- OUTSIDE RECORDS SUMMARY | 2025-01-24 20:13 | XMS_ITS | Encounter Summary ---
Author Organization [facility] Address [address] [place] [address] Phone Care Team Providers Care Business Process Architect Name Role Phone Wali Chowdhury MD Primary Care Provider [phone] Rosy Llamas APN, WATCHER LOOKOUT TOWER Unavailable Christi Rg MD Unavailable Reason for Visit * Reason Comments Medication Refill Encounter Details Date Type Department Care Team (Late st Contact Info) Description 09/23/2021 [facility] [place] [phone] Wali Chowdhury MD [address] [address] Medication Refill Social History Tobacco Use Types Packs/Day Years Used Date Smoking Tobacco: Never Smokeless Tobacco: Never Alcohol Use Standard Drinks/Week Comments No 0 (1 standard drink = 0.6 oz pur e alcohol) PHQ-2 Answer Date Recorded Total Score - Questions 1-9 0 10/2021 Sexually Active Control Partners Comments Never Comments No Sex and Gender Information Value Date Recorded Sex Assigned at Not on file Legal Sex Female 11:45 PM CDT Gender Identity Female 05/07/2023 8:21 PM NETWORK 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 Last UDS was 10/2018. Requested Prescriptions Pending Prescriptions Disp Refills ALPRAZolam (XANAX) 0.25 MG Tablet [Pharmacy Med Name: ALPRAZOLAM 0.25 MG TABLET] 30 Tablet 0 Sig: TAKE 1 TABLET BY MOUTH NIGHTLY NEEDED FOR SLEEP OR ANXIETY. Not Delegated - Benzodiazepines Protocol Failed - 09/23/2021 1:08 PM Failed - This refill cannot be delegated Passed - Visit with relevant provider in past 12 months or upcoming 90 days Recent Visits Date Type Provider Dept 06/28/21 Telemedicine Rebeca Grimm PAC [facility] 03/29/21 Office Visit Marty Hoover APRN, [facility] 02/03/21 Office Visit Wali Chowdhury MD [facility] 12/06/20 Office Visit Marty Hoover APRN, [facility] Showing recent visits within past 365 days and meeting all other requirements Future Appointments Date Type Provider Dept 09/27/21 Appointment Wali Chowdhury MD [facility] Showing future appointments within next 90 days and meeting all other requirements documented in this encounter Plan of Treatment Upcoming Encounters Date Type Department Care Team (Late st Contact Info) Description 02/03/2025 10:30 AM CDT Office [address] [facility] - [facility] - [place] [address] [place] [address] Marty Hoover APRN, [place] [facility] [address] [address] documented as of this encounter Visit Diagnoses Diagnosis Anxiety Anxiety state, unspecified documented in this encounter Additional Health Concerns Infection Onset Date Last Indicated Resolved Time COVID - 19 05/29/2022 05/29/2022 05/31/2022 8:12 AM NETWORK SECURITY OFFICER Respiratory Rule-Out 05/29/2022 05/29/2022 022 2:50 PM NETWORK SECURITY OFFICER Respiratory Rule Out - RPA 05/30/2022 05/30/2022 1 08/01/2021 3:50 PM NETWORK SECURITY OFFICER COVID - 19 01/24/2024 01/24/2024 01/24/2024 10:2 8 AM CDT COVID - 19 02/25/2024 02/25/2024 02/25/2024 7:42 PM CDT Respiratory Rule-Out 08/13/2024 08/13/2024 025 7:04 PM NETWORK SECURITY OFFICER COVID - 19 09/10/2024 09/10/2024 09/10/2024 2:03 PM CDT Respiratory Rule-Out 09/10/2024 09/10/2024 025 2:02 PM CDT Assessment Noted Time PHQ-9 Depression Total Score: 1 09/17/19 21 1:27 PM CDT documented as of this encounter Care Teams Business Process Architect Relationship Specialty Start Date End Date Wali Chowdhury MD [address] [address] [place] [address] PCP - General Family Medicine 05/10/15 Rosy Llamas, MATERIAL HANDLER 2ND SHIFT, WATCHER LOOKOUT TOWER [address] [address] [place] [address] Nurse Practitioner Advanced Practice Nurse 12/24/15 Christi Rg MD [address] [place] [address] Consulting Physician Obstetrics & Gynecology 11/26/18 documented as of this encounter
--- OUTSIDE RECORDS SUMMARY | 2025-01-24 20:13 | XMS_ITS | Encounter Summary ---
Author Organization [facility] Address [address] [place] [address] Phone Care Team Providers Care Street Contractor Name Role Phone Wali Chowdhury MD Primary Care Provider [phone] Rosy Llamas APN, PLASTIC DIE MAKER APPRENTICE Unavailable Christi Rg MD Unavailable Reason for Visit * Reason Comments Medication Refill Encounter Details Date Type Department Care Team (Late st Contact Info) Description 02/06/2023 Refill [facility] [address] [place] [phone] Wali Chowdhury MD [address] [address] Medication Refill Social History Tobacco Use Types Packs/Day Years Used Date Smoking Tobacco: Never Smokeless Tobacco: Never Alcohol Use Standard Drinks/Week Comments No 0 (1 standard drink = 0.6 oz pur e alcohol) PHQ-2 Answer Date Recorded Total Score - Questions 1-9 0 04/0 10/2021 Education Answer Date Recorded What is the highest level of school you have completed or the highest degree you have received? 12th grade 06/20/2022 Sexually Active Control Partners Comments Never Comments No Sex and Gender Information Value Date Recorded Sex Assigned at Not on file Legal Sex Female 11:45 PM CDT Gender Identity Female 05/07/2023 8:21 PM R D INTERN Sexual Orientation Not on file documented as of this encounter Miscellaneous Notes * Telephone Encounter - Monica Brunner RN - 02/06/2023 1:18 PM CDT PDMP 11/17/22 30 day supply Medication failed the protocol, provider to review and approve the medication order if appropriate. Requested Prescriptions Pending Prescriptions Disp Refills ALPRAZolam (XANAX) 0.25 MG Tablet [Pharmacy Med Name: ALPRAZOLAM 0.25MG TABLETS] 30 Tablet 0 Sig: TAKE 1 TABLET BY MOUTH EVERY NIGHT FOR SLEEP OR ANXIETY Not Delegated - Benzodiazepines Protocol Failed - 02/06/2023 12:57 PM Failed - This refill cannot be delegated Passed - Visit with relevant provider in past 12 months or upcoming 90 days Recent Visits Date Type Provider Dept 08/23/22 Office Visit Marty Hoover APRN, CNP [facility] 06/21/22 Office Visit Marty Hoover APRN, CNP [facility] 04/13/22 Office Visit Wali Chowdhury MD [facility] [place] Showing recent visits within past 365 days and meeting all other requirements Future Appointments Date Type Provider Dept 02/28/23 Appointment Marty Hoover APRN, CNP [facility] Showing future appointments within next 90 days and meeting all other requirements documented in this encounter Plan of Treatment Upcoming Encounters Date Type Department Care Team (Late st Contact Info) Description 02/03/2025 10:30 AM CDT Office Visit [facility] - Family Medicine - [place] [address] [place] [address] Marty Hoover APRN, [facility] [address] [address] documented as of this encounter Visit Diagnoses Diagnosis Anxiety Anxiety state, unspecified documented in this encounter Additional Health Concerns Infection Onset Date Last Indicated Resolved Time COVID - 19 01/24/2024 01/24/2024 01/24/2024 10:2 8 AM CDT COVID - 19 02/25/2024 02/25/2024 02/25/2024 7:42 PM CDT Respiratory Rule-Out 08/13/2024 08/13/2024 025 7:04 PM R D INTERN COVID - 19 09/10/2024 09/10/2024 09/10/2024 2:03 PM CDT Respiratory Rule-Out 09/10/2024 09/10/2024 025 2:02 PM CDT Assessment Noted Time PHQ-9 Depression Total Score: 1 09/17/19 21 1:27 PM CDT documented as of this encounter Care Teams Street Contractor Relationship Specialty Start Date End Date Wali Chowdhury MD [address] [address] PCP - General Family Medicine 05/10/15 Rosy Llamas, STAMP CLERK, PLASTIC DIE MAKER APPRENTICE [address] [address] Nurse Practitioner Advanced Practice Nurse 12/24/15 Christi Rg MD [address] [facility] [address] [place], [place] [address], [place] [address] Consulting Physician Obstetrics & Gynecology 11/26/18 documented as of this encounter
--- OUTSIDE RECORDS SUMMARY | 2025-01-24 20:13 | XMS_ITS | Clinical Summary ---
Author Organization [facility] Address [address] [place] [address] Care Team Providers Care Pipe Layer Helper Name Role Phone Unavailable Primary Care Provider Unavailabl e Source Comments [facility],non-owned Affiliates and Associated Physician Practices is amultiple site organization consisting of ambulatory clinics and hospital sitesin [place], [place], [place] and [place]. This disclosure is being madepursuant to the Care Everywhere program and may not contain all information available regarding this patient. Last updated 18.[facility] Chalkable Social History Tobacco Use Types Packs/Day Years Used Date Smoking Tobacco: Never Assessed Comments Unknown Sex and Gender Information Value Date Recorded Sex Assigned at Not on file Legal Sex Female 2:50 PM CDT Gender Identity Not on file Sexual Orientation Not on file Plan of Treatment Health Maintenance Due Date Last Done Comments BONE DENSITY TESTING 1945 MEDICARE AWV 12 MONTHS 1945 DTAP/TDAP/TD VACCINES (1 - Tdap) 1963 PNEUMOCOCCAL VACCINE 50+ (1 of 1 - PCV) 1994 ZOSTER VACCINE (1 of 2) 1994 Respiratory Syncytial Virus (RSV) Vaccine Pt: or over 60 yrs (1 - 1-dose 75+ series) 2019 COVID-19 VACCINE ( - 2023-2 5 season) 2024 DEPRESSION SCREENING 06/25/2024 INFLUENZA VACCINE (#1) 2025 HEPATITIS B VACCINE Aged Out No longe r eligible based on patient's age to complete this topic HIB VACCINE Aged Out No longer eligi ble based on patient's age to complete this topic HPV VACCINE Aged Out No longer eligi ble based on patient's age to complete this topic MENINGOCOCCAL (Group B) VACC INE SHARED DECISION-MAKING Aged Out No longer eligibl e based on patient's age to complete this topic MENINGOCOCCAL GROUPS A/C/Y/W VACCINE Aged Out No longer eligible b ased on patient's age to complete this topic Insurance [facility] FIN[facility] FOR [facility] MEDICARE [facility] & [facility]
--- OUTSIDE RECORDS SUMMARY | 2025-01-24 20:13 | XMS_ITS | Encounter Summary ---
Author Organization [facility] Address [address] [place] [address] Care Team Providers Care Transfer And Line Up Worker Name Role Phone Unavailable Primary Care Provider Unavailsamantha e Encounter Details Date Type Department Care Team (Late st Contact Info) Description 12/14/2022 Lab Requisition [facility] - DermPath Lab [address] [place] [address] Daija Maria MD [address] [place], [place] [id number] Social History Tobacco Use Types Packs/Day Years Used Date Smoking Tobacco: Never Assessed Comments Unknown Sex and Gender Information Value Date Recorded Sex Assigned at Not on file Legal Sex Female 2:50 PM CDT Gender Identity Not on file Sexual Orientation Not on file documented as of this encounter Plan of Treatment Not on file documented as of this encounter Procedures Procedure Name Priority Date/Time Associated Diagnosis Comments IMMUNOFLUORESCENT STUDY DERM Routine 12/13/2022 12:00 AM CDT documented in this encounter Results * IMMUNOFLUORESCENT STUDY DERM (12/13/2022 12:00 AM CDT) Case Report Dermatopathol ogy Report Case: [id number] Authorizing Provider: Daija Maria MD Collected: 12/13/2022 12:00 AM Ordering Location: [facility] DermPath Lab Received: 12/14/2022 06:11 AM Pathologist: Ann Almazan MD Specimen: Skin, left mid-upper back 3:17 PM CDT DERMATOPATHOLOGY LABORATORY Final Diagnosis Specimen A. SKIN, left mid-upper back: NO IMMUNOPATHOLO GICAL ABNORMALITY (L98.9) (see fixed tissue results [id number]) 3 3:17 PM CDT DERMATOPATHOLOGY LABORATORY at 1517 CDT Direct Immunofluorescence Report - Specimen A Specimen A IgA IgM IgG C3 CollV Fibrinogen Epidermis Negative Negative Negative Negative Negative Negative Basement Membrane Negative Negative Negative Negative 2+ Negative Vessels Negative Negative Negative Negative 2+ Negative Interstitium Negative Negative Negative Negative Negative Non specific 3 3:17 PM CDT DERMATOPATHOLOGY LABORATORY Clinical History Hypersensitiv ity Reaction vs Drug Rash vs ACD, r/o early BP 3 3:17 PM CDT DERMATOPATHOLOGY LABORATORY Gross Description Specimen A: Received is one Vitor's media filled container labeled with the patient's name and designated left mid-upper back. The specimen consists of a shave biopsy measuring 12x6x1 mm. The specimen is submitted in whole for direct immunofluores cence testing. 3 3:17 PM CDT DERMATOPATHOLOGY LABORATORY Microscopic Description Specimen A. SKIN, left mid-upper back: Controls were run in parallel. Staining is negative with IgA, IgM, IgG, and C3. Collagen IV stains the basement membrane zone and vessels. Fibrinogen shows non-specific staining. A hematoxylin and eosin stained frozen section shows no significant inflammation. See fixed tissue results. 3 3:17 PM CDT DERMATOPATHOLOGY LABORATORY Disclaimer An external and internal positive and negative controls are appropriate for the histochemical , immunohistoch emical and immunofluores cence stain(s) in this case (if any), except where stated explicitly. The performance characteristi cs of the stain(s) cited in this report were developed and its performance characteristi c determined by the Dermatopathol ogy Laboratory at [facility], directed by Dr. Garrett Almazan. These tests need not be, and therefore are not, approved by the [place] Food and Drug Administratio n. The tests are used for clinical purposes. Billing Codes Specimen Charges Stain Charges 25417 30438 [id number] 1 1 1 1 1 1 3 3:17 PM CDT DERMATOPATHOLOGY LABORATORY Embedded Images 3 3:17 PM CDT DERMATOPATHOLOGY LABORATORY Pathology/Cytolog y TISSUE SPECIMEN FROM SKIN / Unknown 12/13/2022 12/14/2022 6:11 AM CDT us Daija Maria MD LAB - PATHOLOGY/CYTOLOGY ABELINOE SAMAN Final Result DERMATOPATHOLOGY LABORATORY [facility] - Department of Dermatology [facility] Medicine [address] [place] [address], [address] [phone] documented in this encounter Visit Diagnoses Not on filedocumented in this encounter
--- OUTSIDE RECORDS SUMMARY | 2025-01-24 20:13 | XMS_ITS | Encounter Summary ---
Author Organization [facility] Address [address] [place] [address] Phone Care Team Providers Care Physician/Internist Name Role Phone Wali Chowdhury MD Primary Care Provider [phone] Rosy Llamas APN, [facility] Unavailable Christi Rg MD Unavailable [phone] Reason for Visit * Reason Comments Medication Refill Encounter Details Date Type Department Care Team (Late st Contact Info) Description 09/26/2023 Refill [facility] - Family Medicine [facility] [address] [place] [phone] Wali Chowdhury MD [address] [address] Medication Refill Social History Tobacco Use Types Packs/Day Years Used Date Smoking Tobacco: Never Smokeless Tobacco: Never Alcohol Use Standard Drinks/Week Comments No 0 (1 standard drink = 0.6 oz pur e alcohol) [facility] Utilities Answer Date Recorded In the past 12 months has [employer], gas, oil, or water company threatened to shut off services in your home? No 09/17/2023 Social Connection and Isolation Panel Answer Date Recorded In a typical week, how many times do you talk on the phone with family, friends, or neighbors? More than three times a week 09/17/2023 How often do you get togethe r with friends or relatives? Three times a week 09/17/2023 How often do you attend chur ch or mandaen services? More than 4 times per year 09/17/2023 Do you belong to any clubs o r organizations such as confucianism groups, unions, fraternal or athletic groups, or school groups? Yes 09/17/2023 How often do you attend meet ings of the clubs or organizations you belong to? More than 4 times per year 09/17/2023 Are you , , di vorced, , never , or living with a partner? 09/17/2023 AUDIT-C Answer Date Recorded Q1: How often do you have a drink containing alcohol? Never 09/17/2023 Q2: How many drinks containi ng alcohol do you have on a typical day when you are drinking? Patient does not drink Q3: How often do you have si x or more drinks on one occasion? Never 09/17/2023 Overall Financial Resource Strain (CARDIA) Answe r Date Recorded How hard is it for you to pa y for the very basics like food, housing, medical care, and heating? Not hard at all 09/17/2023 PHQ-2 Answer Date Recorded Total Score - Questions 1-9 0 04/0 10/2021 [facility] - Occupational Stress Questionnaire Answer Date Recorded Do you feel stress - tense, restless, nervous, or anxious, or unable to sleep at night because your mind is troubled all the time - these days? Rather much 09/17/2023 Exercise Vital Sign Answer Date Recorde d On average, how many days pe r week do you engage in moderate to strenuous exercise (like a brisk walk)? 0 days Minutes of Exercise per Session Not on file 09/17/2023 Hunger Vital Sign Answer Date Recorded Within the past 12 months, y ou worried that your food would run out before you got the money to buy more. Never true 09/17/19 24 Within the past 12 months, t he food you bought just didn't last and you didn't have money to get more. Never true 09/17/2023 PRAPARE - Transportation Answer Date Re corded In the past 12 months, has l ack of transportation kept you from medical appointments or from getting medications? No 08/24 In the past 12 months, has l ack of transportation kept you from meetings, work, or from getting things needed for daily living? No 09/17/2023 Housing Stability Vital Sign Answer Brian e Recorded In the last 12 months, was t here a time when you were not able to pay the mortgage or rent on time? No 09/17/2023 In the last 12 months, how many places have you lived? 1 09/17/2023 In the last 12 months, was t here a time when you did not have a steady place to sleep or slept in a skilled nursing (including now)? No 09/17/2023 Education Answer Date Recorded What is the highest level of school you have completed or the highest degree you have received? 12th grade 06/20/2022 Sexually Active Control Partners Comments Never Comments No Sex and Gender Information Value Date Recorded Sex Assigned at Not on file Legal Sex Female 11:45 PM CDT Gender Identity Female 05/07/2023 8:21 PM RESPIRATORY SCIENTIST Sexual Orientation Not on file documented as of this encounter Miscellaneous Notes * Telephone Encounter - Carmella Kaye RN - 09/26/2023 2:37 PM CDT Medication(s) refilled and signed per [facility] Chronic Medication Refill Standing Order for Pediatricand Adult Patients. Requested Prescriptions Pending Prescriptions Disp Refills furosemide (LASIX) 20 MG Tablet [Pharmacy Med Name: FUROSEMIDE 20MG TABLETS] 90 Tablet 1 Sig: Take 1 Tablet by mouth daily. Diuretics Protocol Passed - 09/26/2023 2:24 PM Passed - Serum potassium on record in past 12 months POTASSIUM Date Value Ref Range Status 02/22/2023 3.8 3.5 - 5.1 mmol/L Final Passed - Serum sodium on record in past 12 months SODIUM Date Value Ref Range Status 02/22/2023 139 136 - 145 mmol/L Final Passed - Blood pressure on record in past 12 months Clinician-entered: BP Readings from Last 3 Encounters: 09/17/23 140/72 02/28/23 122/62 08/23/22 122/66 Patient-entered: No data recorded Passed - Visit with relevant provider in past 12 months or upcoming 90 days Recent Visits Date Type Provider Dept 09/17/23 [facility] Showing recent visits within past 365 days and meeting all other requirements Future Appointments No visits were found meeting these conditions. Showing future appointments within next 90 days and meeting all other requirements Passed - GFR on record in past 12 months GFR, EST. NONAFRICAN Date Value Ref Range Status 02/22/2023 >60 >=60 Final documented in this encounter Plan of Treatment Upcoming Encounters Date Type Department Care Team (Late st Contact Info) Description 02/03/2025 10:30 AM CDT Office Visit [facility] - Family Medicine [facility] [address] [place] [address] Marty Hoover APRN, [facility] [address] [address] documented as of this encounter Visit Diagnoses Diagnosis Chronic heart failure with preserved ejection fraction (HCC) documented in this encounter Additional Health Concerns Infection Onset Date Last Indicated Resolved Time COVID - 19 01/24/2024 01/24/2024 01/24/2024 10:2 8 AM CDT COVID - 19 02/25/2024 02/25/2024 02/25/2024 7:42 PM CDT Respiratory Rule-Out 08/13/2024 08/13/2024 025 7:04 PM RESPIRATORY SCIENTIST COVID - 19 09/10/2024 09/10/2024 09/10/2024 2:03 PM CDT Respiratory Rule-Out 09/10/2024 09/10/2024 025 2:02 PM CDT Assessment Noted Time PHQ-9 Depression Total Score: 1 09/17/19 21 1:27 PM CDT documented as of this encounter Care Teams Physician/Internist Relationship Specialty Start Date End Date Wali Chowdhury MD #[address] [address] PCP - General Family Medicine 05/10/15 Rosy Llamas APN, TOOTH CUTTER SPUR [address] [facility] [address] [address] Nurse Practitioner Advanced Practice Nurse 12/24/15 Christi Rg MD ONE [employer] [address] [address] Consulting Physician Obstetrics & Gynecology 11/26/18 documented as of this encounter
--- OUTSIDE RECORDS SUMMARY | 2025-01-24 20:13 | XMS_ITS | Clinical Summary ---
Author Organization [facility] [address] Address [address] [place] [address] Phone Care Team Providers Care Caddie Name Role Phone Wali Chowdhury MD Primary Care Provider [phone] Allergies Active Allergy Reactions Criticality Noted Date Comments Adhesive Tape-Silicones Itching,Rash Medium 12/20/2016 Codeine Medications albuterol HFA (PROVENTIL HFA,VENTOLIN HFA) 90 mcg/actuation inhaler inhale 2 puff by inhalation route every 4 - 6 hours as needed 1 Inhaler 3 5 Active ALPRAZolam (XANAX) 0.25 mg tablet take 1 tablet by oral route at hs 0 0 5 Active FLUoxetine (PROzac) 10 mg capsule Take 1 tablet/capsule (10 mg total) by mouth daily Active atorvastatin (LIPITOR) 40 mg tablet Take 40 mg by mouth daily. Active raNITIdine (ZANTAC) 150 mg tablet Take 150 mg by mouth 2 (two) times a day. Active mometasone (ELOCON) 0.1 % solution 2 Active triamcinolone (KENALOG) 0.1 % ointment Apply topically 2 (two) times a day 30 g 2 2 Active Additional Information Patient not taking.Reported on 04/13/2023 amLODIPine (NORVASC) 5 mg tablet Take 1 tablet (5 mg total) by mouth daily 3 Active clobetasoL (TEMOVATE) 0.05 % cream Apply 0.05 Applications topically 2 (two) times a day Active furosemide (LASIX) 20 mg tablet Take 1 tablet (20 mg total) by mouth daily 3 Active Active Problems Problem Noted Date Diagnosed Date Shortness of breath 11/27/2014 Overview (09/28/2016): Dyspnea Encounters Date Type Department Care Team Description 01/15/2025 Orders Only [facility] [address] [place] [address] Lizeth Rosario, Screening mammogram for breast cancer (Primary Dx) from Last 3 Months Surgical History Surgery Date Site/Laterality Comments TUBAL LIGATION Tubal ligation OTHER SURGICAL HISTORY D&C BUNIONECTOMY Bunionectomy OTHER SURGICAL HISTORY 06/25/1989 - 06/24/1990 Fibroids, endometriosis: TOOTIE-BSO OTHER SURGICAL HISTORY 06/25/2015 - 06/24/2016 Stress urinary incontinence: Urethral sling Medical History Medical History Date Comments Hx Other Medical Fibroids, endom etriosis; Comments: RED 03/23/2015 - Hx Other Medical Stress urinary incontinence; Comments: RED 07/31/2016 - Family History Medical History Relation Name Comments mesothelioma Brother 1 Diabetes Brother 2 Diabetes mellit us; Coronary artery disease Brother 3 Galo nary artery disease; Hypertension Brother 4 Hypertension; Other Brother 5 Mesothelioma; C ause of : Mesothelioma Alzheimer's disease Father Alzheime r's disease; Cause of : Alzheimer's disease Breast cancer Mother Cancer, breast ; Cause of : Cancer, breast Hypertension Other Family history of Hypertension; Stroke Sister 2 Stroke; Breast cancer Sister 3 Cancer, breast ; Diabetes Sister 4 Diabetes mellit us; Hypertension Sister 5 Hypertension; Relation Name Status Comments Brother 1 Brother 2 Brother 3 Brother 4 Brother 5 Father (Age 76) Mother (Age 46) Other Sister 1 (Age 72) Sister 2 Sister 3 Sister 4 Sister 5 Social History Tobacco Use Types Packs/Day Years Used Date Smoking Tobacco: Never Smokeless Tobacco: Never Tobacco Cessation:Counseling Given: Not Answered Alcohol Use Standard Drinks/Week Comments No 0 (1 standard drink = 0.6 oz pur e alcohol) Comments No Sex and Gender Information Value Date Recorded Sex Assigned at Not on file 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 Gender Identity Not on file Sexual Orientation Not on file Occupation Industry Job Start Date Job End Date Retired Not on file Not on file Not on file Obstetrics History Para Term AB IAB SAB Ectopic Multiple Livin g Live Births 3 3 3 0 0 3 Date Outcome GA Total Labor Labor/2nd/3rd Weight Sex Type Anes PTL Ivett A1 A5 Name Clin 1970 Term 3.685 kg (8 lb 2 oz) M Vag-Sp ont 1973 Term 4.082 kg (9 lb) M Vag-Sp ont 1975 Term 3.345 kg (7 lb 6 oz) F Vag-Sp ont Last Filed Vital Signs Vital Sign Reading Time Taken Comments Blood Pressure 124/80 04/13/2023 4:00 PM CDT Pulse 68 05/24/2015 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 Temperature - - Respiratory Rate - - Oxygen Saturation 97% 05/24/2015 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 Inhaled Oxygen Concentration - - Weight 73.3 kg (161 lb 9.6 oz) 04/13/2023 4:00 P M CDT Height 165.1 cm (5' 5) 04/13/2023 4:00 PM CDT Body Mass Index 26.89 04/13/2023 4:00 PM CDT Plan of Treatment Health Maintenance Due Date Last Done Comments Depression Screening 1945 Fall Risk Assessment 1945 Hepatitis B Screening 1962 DTaP/Tdap/Td Vaccine (1 - Tdap) 06/26/1995 6 Covid-19 Vaccine (3 - 2023-2 5 season) 2024 08/17/2020, 07/27/2020 Well Visit 65+ 04/13/2024 04/13/2023 Influenza Vaccine (#1) 2025 , 03/29/2021, 05/04/2020, Additional history exists Osteoporosis Screening-Bone Density Scan 05/22/2025 05/22/2023, 05/22/2023, 01/23/2022 Pneumococcal vaccine 65+ Completed 04/08/2015, 06/2012 Zoster Vaccine Completed 12/28/2022, 07/06/2022 Procedures Procedure Name Priority Date/Time Associated Diagnosis Comments DEXA AXIAL SKELETON BONE DENSITY 1 OR MORE SITES Schedule Routine, Read Routine (OP Routine) 01/23/2022 11:16 AM CDT Screening for osteoporosis Age-related osteoporosis without current pathological fracture from Last 3 Months or Most Recently Relevant to Health Maintenance Results * Dexa Axial Skeleton Bone Density 1 or 2 Site (01/23/2022 11:16 AM CDT) Anatomical Region Laterality Modality Body N/A Other 01/24/2022 8:50 AM CDT Narrative 01/24/2022 8:51 AM CDT EXAM DESCRIPTION: DEXA AXIAL SKELETON BONE DENSITY 1 OR MORE SITES REASON FOR STUDY: 76 y/o year old F with given history of screening. Clinical Appeals Rn/Model: EDAN (S/N [id number]) CLINICAL INFORMATION: Current height: 64 inches Maximum height: 66 inches Weight: 156 pounds Risk factors: Postmenopausal COMPARISON: None available. FINDINGS: AP LUMBAR SPINE L1-L4: Total BMD is 0.911 g/cm2 T-score is -1.2 LEFT HIP: Total BMD is 0.881 g/cm2 T-score is -0.5 Femoral neck BMD is 0.678 g/cm2 T-score is -1.5 FRAX: 10 year risk for a major osteoporotic fracture is 12 %, 10 year risk for a hip fracture is 2.7 % IMPRESSION: Based on the left femoral neck bone mineral density (T-score -1.5 ) the patient has low bone mass. REFERENCE: Bone mineral density: Normal (T-score above or = -1.0) Low bone mass (T-score between -1.0 and -2.5) replaces the previously used term osteopenia Osteoporosis (T-score = or below -2.5) Medical evaluation for secondary causes of low bone mineral density may be appropriate. FRAX is a World Health Organization validated fracture risk assessment tool that calculates a person's 10 year probability of a major osteoporosis related fracture and hip fracture. According to the National Osteoporosis Foundation guidelines, postmenopausal women and men age 50 or older with low bone mass and a 10 year probability of a major osteoporosis related fracture = or greater than 20% or a 10 year probability of a hip fracture = or greater than 3% should be considered for treatment. For further information, including treatment recommendations, please refer to the 2013 ISCD Official Positions (http://www.iscd.org) and the NOF's Clinician's Guide to Prevention and Treatment of Osteoporosis (http://www.nof.org/professionals/clinical-guidelines) THIS IS AN ELECTRONICALLY VERIFIED FINAL REPORT 01/24/2022 8:51 AM - Electronically signed by Kamron Shaikh M.D. MF: [email or web address] Report ID: [id number] Reading Location: [id number] Procedure Note Kamron Shaikh MD - 01/24/2022 EXAM DESCRIPTION: DEXA AXIAL SKELETON BONE DENSITY 1 OR MORE SITES REASON FOR STUDY: 76 y/o year old F with given history ofscreening. Clinical Appeals Rn/Model: [place] SL (S/N [id number]) CLINICAL INFORMATION: Current height: 64 inches Maximum height: 66 inches Weight: 156 pounds Risk factors: Postmenopausal COMPARISON: None available. FINDINGS: AP LUMBAR SPINE L1-L4: Total BMD is 0.911 g/cm2 T-score is -1.2 LEFT HIP: Total BMD is 0.881 g/cm2 T-score is -0.5 Femoral neck BMD is 0.678 g/cm2 T-score is -1.5 FRAX: 10 year risk for a major osteoporotic fracture is 12 %, 10 year risk for ahip fracture is 2.7 % IMPRESSION: Based on the left femoral neck bone mineral density (T-score -1.5 )the patient has low bone mass. REFERENCE: Bone mineral density: Normal (T-score above or = -1.0) Low bone mass (T-score between -1.0 and -2.5) replaces thepreviously used term osteopenia Osteoporosis (T-score = or below -2.5) Medical evaluation for secondary causes of low bone mineral density may be appropriate. FRAX is a World Health Organization validated fracture risk assessmenttool that calculates a person's 10 year probability of a major osteoporosisrelated fracture and hip fracture. According to the National OsteoporosisFoundation guidelines, postmenopausal women and men age 50 or older with low bonemass and a 10 year probability of a major osteoporosis related fracture = or greater than 20% or a 10 year probability of a hip fracture = or greaterthan 3% should be considered for treatment. For further information, including treatment recommendations, please referto the 2013 ISCD Official Positions (http://www.iscd.org) and the NOF's Clinician's Guide to Prevention and Treatment of Osteoporosis (http://www.nof.org/professionals/clinical-guidelines) THIS IS AN ELECTRONICALLY VERIFIED FINAL REPORT 01/24/2022 8:51 AM - Electronically signed by Kamron Shaikh M.D. MF: VITOR Report ID: [id number] Reading Location: [place] [id number] Lizeth Rosario DO IMG DXA PROCEDURES Janelle l Result from Last 3 Months or Most Recently Relevant to Health Maintenance Insurance MEDICARE MEDICARE MEDICARE COMMERCIAL GENERIC Care Teams Caddie Relationship Specialty Start Date End Date Wali Chowdhury MD [facility] [address] PCP - General 12/01/14
--- OUTSIDE RECORDS SUMMARY | 2025-01-24 20:13 | XMS_ITS | Clinical Summary ---
Author Organization [facility] Address [address] [place] [address] Phone Care Team Providers Care Project Systems Engineer Name Role Phone Wali Chowdhury MD Primary Care Provider [phone] Rosy Llamas APN, BULK FILLER Unavailable Christi Rg MD Unavailable Allergies Active Allergy Reactions Criticality Noted Date Comments Adhesive Tape Rash,Itching 12/20/2016 Codeine Vomiting,Other (see Comments) 06/21/2015 Slurred speech Egg White (Diagnostic) Rash Medium 09/17/2023 Peanut Extract Allergy Skin Test Rash Medium 09/17/2023 Wheat Rash Medium 09/17/2023 Medications Ascorbic Acid (Vitamin C) 250 MG Tablet Take 500 mg by mouth daily. 022 Active Cyanocobalamin (VITAMIN B-12 PO) Take 1,000 mcg by mouth daily. 022 Active atorvastatin (LIPITOR) 10 MG TabletIndications:Pure hypercholesterolemia Take 1 Tablet by mouth daily. 90 Tablet 3 023 Active emollient (VANICREAM) Cream Apply as needed (skin hydration). Active ALPRAZolam (XANAX) 0.25 MG TabletIndications:Anxie ty TAKE 1 TABLET BY MOUTH EVERY NIGHT NEEDED FOR SLEEP OR ANXIETY 30 Tablet 024 Active Additional Information Patient taking differently: Oral PRN, Sleep, Anxiety, Reported on 11/03/2024 cromolyn (GASTROCROM) 100 MG/5ML Concentrate Take 100 mg by mouth 4 times daily (before meals and nightly). Active albuterol 108 (90 Base) MCG/ACT Aerosol Solution take 1-2 Puffs by inhalation every 6 hours as needed for Cough. 18 g 1 024 Active Additional Information Patient not taking.Reported on 11/03/2024 polyethylene glycol (GLYCOLAX, MIRALAX) 17 g PackIndications:Constip ation Take 1 Packet by mouth 2 times daily as needed for Constipation - 1st line. Dissolve in 4-8 oz of liquid. Indications: Constipation 90 Packet Active senna (SENOKOT) 8.6 MG Tablet Take 1 Tablet by mouth 2 times daily as needed for Constipation - 2nd line. 30 Tablet 024 Active venlafaxine (EFFEXOR-XR) 75 MG CAPSULE SR 24 HRIndications:Complicat ed bereavement Take 1 Capsule by mouth daily. 90 Capsule 3 024 Active alendronate (FOSAMAX) 70 MG Tablet TAKE 1 TABLET BY MOUTH EVERY 7 DAYS 12 Tablet 3 024 Active albuterol (PROVENTIL, VENTOLIN) (2.5 MG/3ML) 0.083% Nebulizer Soln 3 mL by Nebulization route every 4 hours as needed for Wheezing or Shortness of Breath. 150 mL 2 024 Active pantoprazole (Protonix) 20 MG Tablet Delayed Response Take 20 mg by mouth daily. Active Dextromethorphan-guaiFE Nesin (ROBITUSSIN DM PO) Take by mouth as needed for Other. Active VITAMIN D PO Take by mouth daily. Active furosemide (LASIX) 20 MG TabletIndications:Chron ic heart failure with preserved ejection fraction (HCC) Take 1 Tablet by mouth daily. 90 Tablet 1 025 Active Additional Information Patient taking differently:20 mg OralPRN, Reported on 11/03/2024 ondansetron (ZOFRAN) 4 MG TabletIndications:Multi focal pneumonia Take 1 Tablet by mouth every 8 hours as needed for Nausea - 1st line. 15 Tablet 025 Active budesonide-formoterol fumarate (SYMBICORT) 160-4.5 MCG/ACT AerosolIndications:Shor tness of breath take 2 Puffs by inhalation 2 times daily. 10.2 g 5 025 Active amLODIPine (NORVASC) 5 MG TabletIndications:Chron ic heart failure with preserved ejection fraction (HCC) Take 1 Tablet by mouth daily. 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 Nausea 03/17/2024 Generalized weakness 02/26/2024 Hyponatremia 02/26/2024 Hypertension 02/26/2024 Community acquired pneumonia 02/25/2024 Cough 01/24/2024 Chest pain 01/24/2024 Low bone mass 05/22/2023 Acute on chronic heart failu re with preserved ejection fraction 02/28/2023 Bilateral leg edema 04/13/2022 Hypokalemia 12/27/2021 Chronic prescription benzodiazepine use 09/28/19 22 Renal mass 02/03/2021 Chronically on benzodiazepine therapy 11/07/2018 Hyperglycemia 05/13/2018 Lesion of right cachil dehe ureter 04/09/2018 Lesion of spleen 03/01/2018 Hyperlipidemia 01/16/2018 Vitamin D deficiency 01/16/2018 Fatigue 10/15/2017 Overweight (BMI 25.0-29.9) 10/15/2017 Gastroesophageal reflux disease 12/20/2016 SOB (shortness of breath) 07/25/2016 Seasonal allergic rhinitis 07/25/2016 Lung nodule 06/08/2015 Anxiety 05/12/2015 Resolved Problems Problem Noted Date Diagnosed Date Resolved Date Community acquired pneumonia 05/30/2022 06/02/2022 Renal mass 06/08/2015 07/25/2016 Encounters Date Type Department Care Team Description 01/03/2025 10:12 AM CDT - 01/03/2025 11:59 PM CDT Hospital Encounter [facility] [address] [place] [phone] Marty Hoover APRN, BULK FILLER Discharge Disposition: Discharged to home or Selfcare 01/03/2025 Travel 12/11/2024 Refill [facility] [address] [place] [phone] Wali Chowdhury MD Medication Refill 11/25/2024 Results Follow-Up [facility] [place] [address] [place] [phone] Marty Hoover APRN, CNP ADULT TRANS THORACIC ECHO 2D COMPLETE 11/24/2024 1:00 PM CDT - 11/24/2024 11:59 PM CDT [facility] [address] [place] [phone] Marty Hoover APRN, CNP Discharge Disposition: Discharged to home or Selfcare 11/24/2024 12:00 PM CDT - 11/24/2024 12:59 PM CDT Hospital Encounter [facility] Card[facility] Services [address] [place] [phone] Marty Hoover APRN, CNP Discharge Disposition: Discharged to home or Selfcare 11/23/2024 Travel 11/15/2024 Results Follow-Up [facility] [address] [place] [phone] Marty Hoover APRN, CNP CT RENAL W/WO CONTRAST 11/13/2024 3:00 PM CDT - 11/13/2024 11:59 PM CDT [facility] [address] [place] [phone] Marty Hoover APRN, CNP Discharge Disposition: Discharged to home or Selfcare 11/12/2024 Travel 11/03/2024 1:00 PM CDT Office Visit [facility] [address] [place] [phone] Marty Hoover APRN, CNP Multifocal pneumonia (Primary Dx); Shortness of breath; Right renal mass Discharge Disposition: Discharged to home or Selfcare 11/03/2024 Telephone [facility] [address] [place] [phone] Wali Chowdhury MD Medication Management 11/03/2024 Travel 10/27/2024 Results [facility] [place] [address] [place] [address] Marty Hoover, WIND COMMISSIONING TECHNICIAN, BULK FILLER CT CHEST W/O CONTRAST from Last 3 Months Immunizations Immunization Administration Dates Next Due COVID-19, MRNA, LNP-S, BIVAL ENT , PFIZER, 30 MCG/0.3 ML (12+ Y/O) 03/24/2022 Covid-19, Mrna, Lnp-s, Pf, 3 0 Mcg/0.3 Ml Dose (Pfizer) 08/17/2020,07/27/2020 Influenza Vaccine greater than 3 yrs 05/04/2020, 05/02/2016,06/25/2012 Influenza Vaccine, Quadrivalent, PF 03/29/2021,1 06/26/2017 Influenza, High-dose, Quadrivalent 04/03/2023, Influenza, Quadrivalent, Adjuvanted 04/13/2022 Influenza, Seasonal, Injecta ble, Undefined 06/25/2012 Influenza, Trivalent, Adjuvanted, PF 04/12/2017 Influenza, high-dose, trivalent, PF 03/25,05/04/2020,04/18/2019,2015,04/08/2015 Pneumococcal Vaccine - 13 Valent 04/08/2015 Pneumococcal Vaccine Adult - 23 Valent 06/25/2012 RSV, Recombinant, Protein Singh bunit Rsvpref, Adjuvant Recon (Arexvy) 06/07/2023 TD VACCINE 06/25/1995 Zoster Vaccine Recombinant 12/28/2022,07/06/2022 Family History Medical History Relation Name Comments Cancer Brother 1 H lung Congestive Heart Failure Brother 1 H Diabetes Brother 1 H High Cholesterol Brother 1 H Hypertension Brother 1 H Migraines Brother 1 H Osteoarthritis Brother 1 H Congestive Heart Failure Brother 2 B Heart Attack Brother 2 B Heart Surgery Brother 2 B bypass High Cholesterol Brother 2 B Alzheimer's Disease Father Cancer Mother T breast Cancer Sister 1 J breast Congestive Heart Failure Sister 1 J Diabetes Sister 1 J Hypertension Sister 1 J Osteoarthritis Sister 1 J Cancer Sister 2 S Congestive Heart Failure Sister 2 S Diabetes Sister 2 S Heart Attack Sister 2 S High Cholesterol Sister 2 S Hypertension Sister 2 S Osteoarthritis Sister 2 S Stroke Sister 2 S Diabetes Sister 3 Liseth Relation Name Status Comments Brother 1 H Brother 2 B Father Mother T Sister 1 J Sister 2 S Sister 3 Lsieth Social History Tobacco Use Types Packs/Day Years Used Date Smoking Tobacco: Never Smokeless Tobacco: Never Tobacco Cessation:Counseling Given: No Alcohol Use Standard Drinks/Week Comments Never 0 (1 standard drink = 0.6 oz pur e alcohol) [facility] Utilities Answer Date Recorded In the past 12 months has th e electric, gas, oil, or water company threatened to shut off services in your home? No 02/26/2024 Social Connection and Isolation Panel Answer Date Recorded In a typical week, how many times do you talk on the phone with family, friends, or neighbors? Three times a week 02/26/2024 How often do you get togethe r with friends or relatives? Three times a week 02/26/2024 How often do you attend [facility] ch or sabianism services? More than 4 times per year 02/26/2024 Do you belong to any clubs o r organizations such as worship groups, unions, fraternal or athletic groups, or school groups? Yes 02/26/2024 How often do you attend meet ings of the clubs or organizations you belong to? More than 4 times per year 02/26/2024 Are you , , di vorced, , never , or living with a partner? 02/26/2024 AUDIT-C Answer Date Recorded Q1: How often do you have a drink containing alcohol? Never 02/26/2024 Q2: How many drinks containi ng alcohol do you have on a typical day when you are drinking? Patient does not drink Q3: How often do you have si x or more drinks on one occasion? Never 02/26/2024 Overall Financial Resource Strain (CARDIA) Answe r Date Recorded How hard is it for you to pa y for the very basics like food, housing, medical care, and heating? Not hard at all 02/26/2024 PHQ-2 Answer Date Recorded Total Score - Questions 1-9 0 10/23 [facility] Occup[facility] - Occupational Stress Questionnaire Answer Date Recorded Do you feel stress - tense, restless, nervous, or anxious, or unable to sleep at night because your mind is troubled all the time - these days? Patient declined 02/26/2024 Exercise Vital Sign Answer Date Recorde d On average, how many days pe r week do you engage in moderate to strenuous exercise (like a brisk walk)? 0 days 02/26/2024 On average, how many minutes do you engage in exercise at this level? 0 min 02/26/2024 Hunger Vital Sign Answer Date Recorded Within the past 12 months, y ou worried that your food would run out before you got the money to buy more. Never true 02/26/20 24 Within the past 12 months, t he food you bought just didn't last and you didn't have money to get more. Never true 02/26/2024 PRAPARE - Transportation Answer Date Re corded In the past 12 months, has l ack of transportation kept you from medical appointments or from getting medications? No 08/2023 In the past 12 months, has l ack of transportation kept you from meetings, work, or from getting things needed for daily living? No 02/26/2024 Housing Stability Vital Sign Answer Brian e [...] place to sleep or slept in a correction (including now)? No 09/17/2023 Housing Stability Vital Sign Answer Brian e Recorded In the last 12 months, was t here a time when you were not able to pay the mortgage or rent on time? No 02/26/2024 In the past 12 months, how m any times have you moved where you were living? 0 02/26/2024 At any time in the past 12 m [facility], were you homeless or living in a correction (including now)? No 02/26/2024 Education Answer Date Recorded What is the highest level of school you have completed or the highest degree you have received? 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 Sexual Orientation Not on file Last Filed Vital Signs Vital Sign Reading Time Taken Comments Blood Pressure 122/74 11/03/2024 12:57 PM CDT Pulse 57 11/03/2024 12:57 PM CDT Temperature 36.3 C (97.3 F) 11/03/2024 12:57 PM CDT Respiratory Rate 16 11/03/2024 12:57 PM CDT Oxygen Saturation 98% 11/03/2024 12:57 PM CDT Inhaled Oxygen Concentration - - Weight 66.4 kg (146 lb 4.8 oz) 11/03/2024 12:57 PM CDT Height 165.1 cm (5' 5) 11/03/2024 12:57 PM CDT Body Mass Index 24.35 11/03/2024 12:57 PM CDT Plan of Treatment Upcoming Encounters Date Type Department Care Team (Late st Contact Info) Description 02/03/2025 10:30 AM CDT Office Visit [facility] [place] [address] [place] [address] Marty Hoover APRN, BULK FILLER [address] [address] Health Maintenance Due Date Last Done Comments TdaP Immunization 1945 SARS-COV-2 Immunization ( season) 2024 04/04/2024, 04/03/2023, 03/24/2022, Additional history exists Influenza Immunization (#1) 02/23/202503/25, 04/03/2023, 04/13/2022, Additional history exists DEXA Bone Density 05/22/2025 05/22/2023, 01/23/2022 Colonoscopy Discontinued 12/21/2010 Colorectal Cancer Screening Discontinued Pneumococcal Immunization (50+ years) Completed 04/08/2015, 06/25/2012 Pneumococcal Immunization Combined Discontinued 04/08/2015, 06/25/2012 Hepatitis C Virus (HCV) Screening Completed 12/31/2017 Zoster Immunization Completed 12/28/2022, Respiratory Syncytial Virus (RSV) Immunization (Adult) Completed 06/07/2023 Cologuard Discontinued Hepatitis B Immunization Aged Out No longer eligible based on patient's age to complete this topic Human Papillomavirus (HPV) Immunization Aged Out No longer eligible based on patient's age to complete this topic Immunochemical Fecal Occult Blood Discontinued Meningococcal Immunization (ACWY) Aged Out No longer eligible based on patient's age to complete this topic Rotavirus Immunization Aged Out No lo nger eligible based on patient's age to complete this topic Medical Devices Implanted Type Area Business Dean Device Identifier Shelf Expiration Date Model / Serial / Lot Slng Urth Align Spbc Pp Sprt Sys Hk - [id number] Implanted:Qty : 1 on 06/30/2015 by Rip Whitman MD at [facility] IMPLANT N/A: Urethra CR BARD / UROLOGICAL 04/30/2016 [id number] / / [id number] Procedures Procedure Name Priority Date/Time Associated Diagnosis Comments CT CHEST W/O CONTRAST Routine 01/03/2025 10:29 AM CDT Opacity of lung on imaging study STRESS TEST 12/15/2024 12:00 AM CDT ADULT TRANS THORACIC ECHO 2D COMPLETE Routine 11/24/2024 12:51 PM CDT Shortness of breath COMPLETE PFT W + W/O BRONCHODILATOR Routine 11/24/[address] RENAL W/WO CONTRAST Routine 4:29 PM CDT Renal mass, right POCT CREATININE Routine 11/13/2024 3:29 PM CDT DANIELLA BONE DENSITOMETRY AXIAL SKELETON Routine 05/22/2023 9:58 AM POWER MACHINE 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 No suspicious nodule or other acutely concerning abnormality is identified. Narrative 01/23/2025 2:23 AM CDT EXAM DESCRIPTION: CT CHEST W/O CONTRAST REASON FOR STUDY: Patchy ground-glass nodular airspace opacities in the lung bases, which is concerning for multifocal airspace disease of inflammatory or infectious etiology x 3 month follow up TECHNIQUE: CT scan of the chest performed without intravenous contrast using helical scanning technique. Reconstructed coronal and sagittal MPR images reviewed. All images stored on PACS. Automated exposure control was used as a dose optimization technique for this examination. COMPARISON: 10/15/2024 FINDINGS: LUNGS: Scattered small granulomas and peripheral airspace opacities, improved from September. No suspicious nodule is seen. Trachea and major airways patent. HEART/MEDIASTINUM/ARNALDO: Heart size normal. Coronary artery calcifications. No enlarged lymph node. Thoracic inlet unremarkable. UPPER ABDOMEN: Small exophytic lesion in the right kidney appears unchanged. Moderate atherosclerotic calcification in the aorta. MUSCULOSKELETAL: Moderate multilevel disc disease. Shoulder arthritis. CHEST WALL: Unremarkable. THIS IS AN ELECTRONICALLY VERIFIED FINAL REPORT 01/23/2025 2:21 AM - Electronically signed by Vinny Pagan M.D. AR: ELLIS Report ID: [id number] Reading Location: [id number] Procedure Note Vinny Pagan MD - 01/23/2025 EXAM DESCRIPTION: CT CHEST W/O CONTRAST REASON FOR STUDY: Patchy ground-glass nodular airspace opacities in the lung bases, which is concerning for multifocal airspace disease of inflammatory or infectious etiology x 3 month follow up TECHNIQUE: CT scan of the chest performed without intravenous contrast using helical scanning technique. Reconstructed coronal and sagittal MPR images reviewed. All images stored on PACS. Automated exposure control was used as a dose optimization technique for this examination. COMPARISON: 10/15/2024 FINDINGS: LUNGS: Scattered small granulomas and peripheral airspace opacities, improved from September. No suspicious nodule is seen. Trachea and major airways patent. HEART/MEDIASTINUM/ARNALDO: Heart size normal. Coronary artery calcifications. No enlarged lymph node. Thoracic inlet unremarkable. UPPER ABDOMEN: Small exophytic lesion in the right kidney appears unchanged. Moderate atherosclerotic calcification in the aorta. MUSCULOSKELETAL: Moderate multilevel disc disease. Shoulder arthritis. CHEST WALL: Unremarkable. THIS IS AN ELECTRONICALLY VERIFIED FINAL REPORT 01/23/2025 2:21 AM - Electronically signed by Vinny Pagan M.D. AR: ELLIS Report ID: [id number] Reading Location: [id number] IMPRESSION: Scattered granulomas and areas of peripheral scarring in the lungs are improved since 10/15/2024. No suspicious nodule or other acutely concerning abnormality is identified. Marty Hoover APRN, CNP IMG CT ORDERABLE S Final Result * STRESS TEST (12/15/2024 12:00 AM CDT) Anatomical Region Laterality Modality Other 12/15/2024 Provider Scan CV PROCEDURES SCHED Final Result * ADULT TRANS THORACIC ECHO 2D COMPLETE (11/24/2024 12:51 PM CDT) AV Peak Grad mmHg 6.15 mmHg RESULTING AGENCY Mean Aortic Valve Gradient (MAVG) 3 mmHg RESULTING AGENCY Est PA Sys Press mmHg 19.32 mmHg RESULTING AGENCY LV end pradeep diam cm 3.7 cm RESULTING AGENCY LV end sys diam cm 2.2 cm RESULTING AGENCY Aortic Root Diam cm 2.5 cm RESULTING AGENCY LA vol index ml/m2 25 ml/m2 RESULTING AGENCY LVOT Peak Toby m/sec [id number] m/sec RESULTING AGENCY AV Peak Toby m/sec 1.24 m/sec RESULTING AGENCY MV Mean Grad mmHg 2 mmHg RESULTING AGENCY MVA by PHT cm2 3.19 cm2 RESUL TING AGENCY E/A Ratio 0.62 RESULTING AGENCY TR Toby m/sec 2.02 m/sec RESULTI NG AGENCY E/E' 7.9 RESULTING AGENCY AV Area (VTI) cm2 2.43 cm2 RESULTING AGENCY RV Sys Pressure mmHg 19.32 mmHg RESULTING AGENCY SEPTUM DIASTOLIC CM 1.2 cm RESULTING AGENCY PW DIASTOLIC CM 1 cm RESULTING AGENCY LA VOLUME 43.5 ml RESULTING AGENCY LV EF(estimated)% 62 RESULTING AGENCY Anatomical Region Laterality Modality CARDIO N/A Ultrasound Narrative 11/24/2024 10:14 PM CDT Transthoracic Echocardiography Report (TTE) Patient name CHRISTOS AgustinO.B. 1945 Patient ID (I) [id number] Indications: Shortness of breath, Hypertension and Heart Failure preserved EF (HFpEF. Study Date11/24/2024 Technical quality: Adequate Type of Study: TTE procedure: Adult Trans Thoracic Echo 2D Complete. Priority:RoutineHR: 64 bpmBP: 166/80 mmHg Conclusions Summary The left ventricle is normal in size with moderately increased wall thickness consistent with concentric remodeling. The systolic function is normal with calculated EF 62% with no wall motion abnormalities. Grade I diastolic dysfunction. Average global longitudinal strain (GLS) is abnormal at - 13.3%. Normal right ventricular cavity size and normal systolic function. The atria are normal. There is mild aortic regurgitation. There is no evidence of pulmonary hypertension with estimated PASP 19 mmHg. Findings Mitral Valve The mitral valve is normal. There is no evidence of mitral stenosis. There is mild mitral regurgitation. Aortic Valve The aortic valve is trileaflet and calcified with normal leaflet excursion. There is no evidence of aortic valve stenosis. There is mild aortic valve insufficiency. Tricuspid Valve The tricuspid valve is normal. There is no evidence of tricuspid stenosis. There is trace tricuspid regurgitation. There is no evidence of pulmonary hypertension with estimated PASP 19 mm Hg. Pulmonic Valve The pulmonic valve is not well visualized. There is no evidence of pulmonic stenosis. There is mild pulmonic valve regurgitation. Left Atrium The left atrium size is normal. Left Ventricle The left ventricle is normal in size with moderately increased wall thickness consistent with concentric remodeling. The systolic function is normal with calculated EF 62% with no wall motion abnormalities. Grade I diastolic dysfunction. Average global longitudinal strain (GLS) is abnormal at - 13.3%. Right Atrium The right atrium size is normal. Right Ventricle Normal right ventricular cavity size and normal systolic function. Pericardial Effusion There is a mild circumferential pericardial effusion. No tamponade physiology by Echo parameters. Miscellaneous Aortic root and proximal ascending aorta are normal in size. Atrial septum appears intact on color Doppler. IVC is normal in size and respiratory response. Aortic arch appears normal. Valves Mitral Valve Area (PHT): 3.19 cm^2 Area (continuity): 2.13 cm^2 Peak E-Wave: 0.65 m/s Mean Velocity: 0.6 m/s Peak A-Wave: 1.05 m/s Mean Gradient: 2 mmHg Peak Gradient: 1.69 mmHg Deceleration Time: 236 msec P1/2t: 69 msec Tissue Doppler E' Velocity: 0.06 m/s E/E':7.9 E/A Ratio: 0.62 E/Lat E': 7.9 E/Med E':10.7 Aortic Valve Area (continuity): 2.43 cm^2 Mean Velocity: 0.87 m/s Area (VTI):2.43 cm^2 Mean Gradient: 3 mmHg Peak Velocity: 1.24 m/s AV VTI: 27.6 cm Peak Gradient: 6.15 mmHg Tricuspid Valve Peak E-Wave: 0.55 m/s Peak Gradient: 1.21 mmHg Estimated RAP: 3 mmHg TR Velocity: 2.02 m/s TR Gradient: 16.32 mmHg Pulmonic Valve Peak Velocity: 0.93 m/s Mean Velocity: 0.66 m/s Peak Gradient: 3.47 mmHg Mean Gradient: 2 mmHg NC ED Velocity: 1.07 m/s Estimated PASP: 19.32 mmHg LVOT Peak Velocity: 0.91 m/s Mean Velocity: 0.65 m/s Peak Gradient: 3 mmHg Mean Gradient: 2 mmHg LVOT Diameter: 2 cm LVOT VTI: 21.4 cm Stroke Volume: 67 ml Stroke Volume Index: 38.73 ml/m^2 Structures Left Ventricle Diastolic Dimension: 3.7 cm Systolic Dimension: 2.2 cm Septum Diastolic: 1.2 cm Septum Systolic: 1.5 cm PW Diastolic: 1 cm PW Systolic: 1.2 cm Diastolic Length: 21 cm Systolic Length: 11.6 cm EF Calculated: 62.33% CI: 2.49 l/min*m^2 CO: 4.3 l/min RWT: 0.54 LV EDV: 59.2 ml FS: 40.54 % LV EDV Index: 34 m^2 LV Length: 7.33 cm LV ESV: 22.3 ml LVOT Diameter: 2 cm LV ESV Index: 13 m^2 Global Longitudinal Strain:-13.3 Right Ventricle RVOT (PLAX) diameter:3.7 cm Tissue Doppler RV S': 10.8 TAPSE: 1.7 cm Left Atrium LA Systolic Pressure: 11.82 mmHg LA Area: 18.5 cm^2 LA Volume: 43.5 ml LA Index: 25ml/m^2 Right Atrium RA Area: 15.1 cm^2 Great Vessels Aorta Ascending Aorta: 3 cm Aorta Root:2.5 cm Ascending Aorta Index:1.73 cm/m^2 Vena Cava IVC Inspirium: 1.3 cm Demographics Age 79 Gender Female Race Height 65 in. Weight 146.3 lbs. BMI (BSA) 24.35 kg/m^2 (1.73 m^2) Real Time Analyst Rupa Roche Interpreting Guerda Hernandez Referring Physician Abby GARCIA Physician Jaclyn Strong Procedure Note Kelle Anaya DO - 11/24/2024 Transthoracic Echocardiography Report (TTE) Patient name CHRISTOS Ricketts 1945 Patient ID (UPI) [id number] Indications: Shortness of breath, Hypertension and Heart Failure preserved EF (HFpEF. Study Date11/24/2024 Technical quality: Adequate Type of Study: TTE procedure: Adult Trans Thoracic Echo 2D Complete. Priority:RoutineHR: 64 bpmBP: 166/80 mmHg Conclusions Summary The left ventricle is normal in size with moderately increased wall thickness consistent with concentric remodeling. The systolic function is normal with calculated EF 62% with no wall motion abnormalities. Grade I diastolic dysfunction. Average global longitudinal strain (GLS) is abnormal at - 13.3%. Normal right ventricular cavity size and normal systolic function. The atria are normal. There is mild aortic regurgitation. There is no evidence of pulmonary hypertension with estimated PASP 19 mmHg. Findings Mitral Valve The mitral valve is normal. There is no evidence of mitral stenosis. There is mild mitral regurgitation. Aortic Valve The aortic valve is trileaflet and calcified with normal leaflet excursion. There is no evidence of aortic valve stenosis. There is mild aortic valve insufficiency. Tricuspid Valve The tricuspid valve is normal. There is no evidence of tricuspid stenosis. There is trace tricuspid regurgitation. There is no evidence of pulmonary hypertension with estimated PASP 19 mm Hg. Pulmonic Valve The pulmonic valve is not well visualized. There is no evidence of pulmonic stenosis. There is mild pulmonic valve regurgitation. Left Atrium The left atrium size is normal. Left Ventricle The left ventricle is normal in size with moderately increased wall thickness consistent with concentric remodeling. The systolic function is normal with calculated EF 62% with no wall motion abnormalities. Grade I diastolic dysfunction. Average global longitudinal strain (GLS) is abnormal at - 13.3%. Right Atrium The right atrium size is normal. Right Ventricle Normal right ventricular cavity size and normal systolic function. Pericardial Effusion There is a mild circumferential pericardial effusion. No tamponade physiology by Echo parameters. Miscellaneous Aortic root and proximal ascending aorta are normal in size. Atrial septum appears intact on color Doppler. IVC is normal in size and respiratory response. Aortic arch appears normal. Valves Mitral Valve Area (PHT): 3.19 cm^2 Area (continuity): 2.13 cm^2 Peak E-Wave: 0.65 m/s Mean Velocity: 0.6 m/s Peak A-Wave: 1.05 m/s Mean Gradient: 2 mmHg Peak Gradient: 1.69 mmHg Deceleration Time: 236 msec P1/2t: 69 msec Tissue Doppler E' Velocity: 0.06 m/s E/E':7.9 E/A Ratio: 0.62 E/Lat E': 7.9 E/Med E':10.7 Aortic Valve Area (continuity): 2.43 cm^2 Mean Velocity: 0.87 m/s Area (VTI):2.43 cm^2 Mean Gradient: 3 mmHg Peak Velocity: 1.24 m/s AV VTI: 27.6 cm Peak Gradient: 6.15 mmHg Tricuspid Valve Peak E-Wave: 0.55 m/s Peak Gradient: 1.21 mmHg Estimated RAP: 3 mmHg TR Velocity: 2.02 m/s TR Gradient: 16.32 mmHg Pulmonic Valve Peak Velocity: 0.93 m/s Mean Velocity: 0.66 m/s Peak Gradient: 3.47 mmHg Mean Gradient: 2 mmHg NC ED Velocity: 1.07 m/s Estimated PASP: 19.32 mmHg LVOT Peak Velocity: 0.91 m/s Mean Velocity: 0.65 m/s Peak Gradient: 3 mmHg Mean Gradient: 2 mmHg LVOT Diameter: 2 cm LVOT VTI: 21.4 cm Stroke Volume: 67 ml Stroke Volume Index: 38.73 ml/m^2 Structures Left Ventricle Diastolic Dimension: 3.7 cm Systolic Dimension: 2.2 cm Septum Diastolic: 1.2 cm Septum Systolic: 1.5 cm PW Diastolic: 1 cm PW Systolic: 1.2 cm Diastolic Length: 21 cm Systolic Length: 11.6 cm EF Calculated: 62.33% CI: 2.49 l/min*m^2 CO: 4.3 l/min RWT: 0.54 LV EDV: 59.2 ml FS: 40.54 % LV EDV Index: 34 m^2 LV Length: 7.33 cm LV ESV: 22.3 ml LVOT Diameter: 2 cm LV ESV Index: 13 m^2 Global Longitudinal Strain:-13.3 Right Ventricle RVOT (PLAX) diameter:3.7 cm Tissue Doppler RV S': 10.8 TAPSE: 1.7 cm Left Atrium LA Systolic Pressure: 11.82 mmHg LA Area: 18.5 cm^2 LA Volume: 43.5 ml LA Index: 25ml/m^2 Right Atrium RA Area: 15.1 cm^2 Great Vessels Aorta Ascending Aorta: 3 cm Aorta Root:2.5 cm Ascending Aorta Index:1.73 cm/m^2 Vena Cava IVC Inspirium: 1.3 cm Demographics Age 79 Gender Female Race Height 65 in. Weight 146.3 lbs. BMI (BSA) 24.35 kg/m^2 (1.73 m^2) Real Time Analyst Rupa Roche Interpreting Guerda Hernandez Referring Physician Abby Strong us Marty Hoover WIND COMMISSIONING TECHNICIAN, BULK FILLER IMG ECHO ORDERAB LES Edited Result - Final * CT RENAL W/WO CONTRAST (11/13/2024 4:29 PM CDT) Anatomical Region Laterality Modality , Abdomen N/A Computed Tomogra phy 11/15/2024 3:58 PM CDT Impressions 11/15/2024 4:00 PM CDT IMPRESSION: 1. Previously noted possible solid right renal mass has remained stable in size since at least 2020 and suggests a benign etiology. 2. Parapelvic left renal cysts. 3. Small hiatal hernia. 4. Cyst or hemangioma in the spleen. Narrative 11/15/2024 4:00 PM CDT EXAM DESCRIPTION: CT RENAL W/WO CONTRAST REASON FOR STUDY: F/U upper posterior right kidney mass x 10+ years. TECHNIQUE: CT scan of the abdomen and pelvis performed without and with intravenous and without oral contrast using helical scanning technique with dynamic intravenous contrast injection. Reconstructed coronal and sagittal MPR images reviewed. All images stored on PACS. Automated exposure control was used as a dose optimization technique for this examination. CONTRAST TYPE/DOSE: 100mL of IOPAMIDOL 76 % IV SOLN injected via Intravenous COMPARISON: Abdominal MRI from 02/15/[address] from 10/15/2024 FINDINGS: LOWER CHEST: No significant pulmonary abnormalities. No effusion. LIVER: Normal size. No identified cystic or solid masses. GALLBLADDER: No stones identified. No wall thickening or inflammatory changes. BILE DUCTS: No intrahepatic or extrahepatic ductal dilatation. SPLEEN: There is a 1.1 cm cyst or hemangioma. PANCREAS: No identified cystic or solid masses. No significant calcifications. No adjacent inflammation or peripancreatic fluid collections. Pancreatic duct not dilated. ADRENALS: Normal. KIDNEYS/URINARY TRACT: There is a 1 cm enhancing structure involving the mid right kidney which appears to demonstrates some postcontrast enhancement but has remained stable in size since at least 2020 and suggests a benign etiology. There is a 1.2 cm parapelvic left renal cysts. The previously identified parenchymal left renal cyst has significantly decreased in size or completely resolved. No visualized stones. No hydronephrosis or hydroureter. Symmetric enhancement. Urinary bladder is unremarkable. GI: A small hiatal hernia is noted. No dilated bowel loops. No obvious wall thickening. Normal appendix. No significant diverticular disease. PERITONEUM: No ascites or free air. RETROPERITONEUM: No mass or adenopathy. REPRODUCTIVE: No significant abnormality. VASCULATURE: No abdominal aortic aneurysm. 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 MUSCULOSKELETAL: Grade 1 anterolisthesis of L4 on L5 is present. OTHER: No other abnormality. THIS IS AN ELECTRONICALLY VERIFIED FINAL REPORT 11/15/2024 3:58 PM - Electronically signed by Russel Smith M.D. BS: TROY Report ID: [id number] Reading Location: [id number] Procedure Note Russel Smith MD - 11/15/2024 EXAM DESCRIPTION: CT RENAL W/WO CONTRAST REASON FOR STUDY: F/U upper posterior right kidney mass x 10+ years. TECHNIQUE: CT scan of the abdomen and pelvis performed without and with intravenous and without oral contrast using helical scanning technique with dynamic intravenous contrast injection. Reconstructed coronal and sagittal MPR images reviewed. All images stored on PACS. Automated exposure control was used as a dose optimization technique for this examination. CONTRAST TYPE/DOSE: 100mL of IOPAMIDOL 76 % IV SOLN injected via Intravenous COMPARISON: Abdominal MRI from 02/15/[address] from 10/15/2024 FINDINGS: LOWER CHEST: No significant pulmonary abnormalities. No effusion. LIVER: Normal size. No identified cystic or solid masses. GALLBLADDER: No stones identified. No wall thickening or inflammatory changes. BILE DUCTS: No intrahepatic or extrahepatic ductal dilatation. SPLEEN: There is a 1.1 cm cyst or hemangioma. PANCREAS: No identified cystic or solid masses. No significant calcifications. No adjacent inflammation or peripancreatic fluid collections. Pancreatic duct not dilated. ADRENALS: Normal. KIDNEYS/URINARY TRACT: There is a 1 cm enhancing structure involving the mid right kidney which appears to demonstrates some postcontrast enhancement but has remained stable in size since at least 2020 and suggests a benign etiology. There is a 1.2 cm parapelvic left renal cysts. The previously identified parenchymal left renal cyst has significantly decreased in size or completely resolved. No visualized stones. No hydronephrosis or hydroureter. Symmetric enhancement. Urinary bladder is unremarkable. GI: A small hiatal hernia is noted. No dilated bowel loops. No obvious wall thickening. Normal appendix. No significant diverticular disease. PERITONEUM: No ascites or free air. RETROPERITONEUM: No mass or adenopathy. REPRODUCTIVE: No significant abnormality. VASCULATURE: No abdominal aortic aneurysm. 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 MUSCULOSKELETAL: Grade 1 anterolisthesis of L4 on L5 is present. OTHER: No other abnormality. THIS IS AN ELECTRONICALLY VERIFIED FINAL REPORT 11/15/2024 3:58 PM - Electronically signed by Russel Smith M.D. BS: TROY Report ID: [id number] Reading Location: [id number] IMPRESSION: 1. Previously noted possible solid right renal mass has remained stable in size since at least 2020 and suggests a benign etiology. 2. Parapelvic left renal cysts. 3. Small hiatal hernia. 4. Cyst or hemangioma in the spleen. Marty Hoover APRN, CNP IMG CT ORDERABLE S Final Result * POCT Creatinine (11/13/2024 3:29 PM CDT) CREATININE - POCT 0.7 0.6 - 1.3 mg/dL 11/14/2024 7:29 AM CDT [facility] Blood 11/13/2024 3:29 PM CDT 11/14/2024 7:29 AM CDT us None Provider POINT OF CARE TESTING Final Resu lt [facility] [address] [place] [address] * [facility] BONE DENSITOMETRY AXIAL SKELETON (05/22/2023 9:58 AM POWER MACHINE OPERATOR) Anatomical Region Laterality Modality BODY N/A Computed Radiogr aphy 05/22/2023 11:2 7 AM POWER MACHINE OPERATOR Impressions 05/22/2023 11:29 AM POWER MACHINE OPERATOR IMPRESSION: Low Bone Mass. 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 LEFT HIP: Total BMD is 0.916 g/cm2 T-score is -0.7 This is increased in comparison to prior exam which is not statistically significant. 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 LEFT HIP: Total BMD is 0.916 g/cm2 T-score is -0.7 This is increased in comparison to prior exam which is not statistically significant. Femoral neck BMD is 0.804 g/cm2 T-score is -1.7 FRAX: 10 year risk for a major osteoporotic fracture is 13.9 %, 10 year risk for a hip fracture is 3.5 % THIS IS AN ELECTRONICALLY VERIFIED FINAL REPORT 05/22/2023 11:27 AM - Electronically signed by Kamron ADLER: VITOR Report ID: [id number] Reading Location: [place] [address] IMPRESSION: Low Bone Mass. REFERENCE: Bone mineral density: Normal (T-score above [...] including treatment recommendations, please refer to the 2019 ISCD Official Positions (http://www.iscd.org) and the NOF's Clinician's Guide to Prevention and Treatment of Osteoporosis (http://www.nof.org/professionals/clinical-guidelines) us Marty Hoover APRN, CNP IMG DEXA ORDERAB LES Final Result * HEPATITIS C ANTIBODY (12/31/2017 1:10 PM CDT) hepatitis C antibody 0.12 <1 S/CO 12/31/2017 10:42 PM CDT [facility] Comment: Signal/Cutoff ratio < 0.79 is Nondetected Signal/Cutoff ratio 0.80-0.99 is Grayzone Signal/Cutoff ratio > 0.99 is Detected Supplemental assays are recommended if signal/cutoff ratio is >/=1.00. Signal/cutoff ratio result >/= 5.00 is 97% predictive of positivity for recombinant immunoblot assay (RIBA) and will be reported to the [place] Department of Public Health as required. Blood specimen (specimen) Venipuncture / Unknown 12/31/2017 1:10 PM CDT 12/31/2017 1:50 PM CDT Wali Chowdhury MD CHEMISTRY ORDERABLES Janelle l Result [facility] [address] [place] [address], * HM COLONOSCOPY (12/21/2010) Wali Chowdhury MD PROCEDURE/MINOR SURGICAL ORDERABLES Final Result from Last 3 Months or Most Recently Relevant to Health Maintenance Insurance MEDICARE COMMERCIAL GENERIC Advance Directives Documents on File Type Date Recorded Patient Grain Roaster Expl anation Power of Rn Endocrinology for Health Care 06/05/2022 12:32 PM POA-, 02/10/2016 * Full Code (Latest Code Status on File) Date Activated Date Inactivated Comments 02/25/2024 11:32 PM 03/05/2024 5:46 PM CPR-Full Duarte atment: FULL ARREST: Attempt Resuscitation/CPR wit intubation and mechanical ventilation. PRE-ARREST: Use entire range of life support measures to stabilize the patient. * Full Code Date Activated Date Inactivated Comments 06/29/2022 11:58 AM 02/25/2024 6:34 PM * Full Code Date Activated Date Inactivated Comments 05/30/2022 6:22 PM 06/02/2022 7:04 PM CPR-Full Duarte atment: FULL ARREST: Attempt Resuscitation/CPR wit intubation and mechanical ventilation. PRE-ARREST: Use entire range of life support measures to stabilize the patient. Care Teams Project Systems Engineer Relationship Specialty Start Date End Date Wali Chowdhury MD [facility] [address] [address] PCP - General Family Medicine 05/10/15 Rosy Llamas, MAILING SECTION CLERK, BULK FILLER [address] [address] Nurse Practitioner Advanced Practice Nurse 12/24/15 Christi Rg MD [address] [facility] [address] [place] [phone] Consulting Physician Obstetrics & Gynecology 11/26/18
--- OUTSIDE RECORDS SUMMARY | 2025-01-24 20:13 | XMS_ITS | Encounter Summary ---
Author Organization [facility] Address [address] [place] [address] Phone Care Team Providers Care Real Estate Sales Associate Name Role Phone Wali Chowdhury MD Primary Care Provider [phone] Rosy Llamas APN, FURNACE REPAIRER Unavailable Christi Rg MD Unavailable Reason for Visit * Reason Comments Medication Refill Encounter Details Date Type Department Care Team (Late st Contact Info) Description 08/02/2023 Refill [facility] - [facility] [address] [place] [phone] Wali Chowdhury MD #[address] [address] Medication Refill Social History Tobacco Use Types [...] CDT Gender Identity Female 05/07/2023 8:21 PM DIGITAL MARKETER Sexual Orientation Not on file documented as of this encounter Miscellaneous Notes * Telephone Encounter - Linda Xiong RN - 08/03/2023 9:50 AM CST PDMP 05/23/23 Medication failed the protocol, provider to review and approve the medication order if appropriate. Requested Prescriptions Pending Prescriptions Disp Refills ALPRAZolam (XANAX) 0.25 MG Tablet [Pharmacy Med Name: ALPRAZOLAM 0.25MG TABLETS] 30 Tablet 0 Sig: TAKE 1 TABLET BY MOUTH EVERY NIGHT NEEDED FOR SLEEP OR ANXIETY Not Delegated - Benzodiazepines Protocol Failed - 08/02/2023 4:35 PM Failed - This refill cannot be delegated Passed - Visit with relevant provider in past 12 months or upcoming 90 days Recent Visits Date Type Provider Dept 02/28/23 Office Visit Marty Hoover APRN, CNP [facility] 08/23/22 Office Visit Marty Hoover APRN, CNP [facility] [place] Showing recent visits within past 365 days and meeting all other requirements Future Appointments Date Type Provider Dept 08/29/23 Appointment Wali Chowdhury MD [facility] [place] Showing future appointments within next 90 days and meeting all other requirements TAL MARKETER documented in this encounter Plan of Treatment Upcoming Encounters Date Type Department Care Team (Late st Contact Info) Description 02/03/2025 10:30 AM CDT Office Visit [facility] - Family Medicine - [place] [address] [place] [address] Marty Hoover APRN, [place] [address] [address] documented as of this encounter Visit Diagnoses Diagnosis Anxiety Anxiety state, unspecified documented in this encounter Additional Health Concerns Infection Onset Date Last Indicated Resolved Time COVID - 19 01/24/2024 01/24/2024 01/24/2024 10:2 8 AM CDT COVID - 02/25/2024 02/25/2024 02/25/2024 7:42 PM CDT Respiratory Rule-Out 08/13/2024 08/13/2024 025 7:04 PM DIGITAL MARKETER COVID - 19 09/10/2024 09/10/2024 09/10/2024 2:03 PM CDT Respiratory Rule-Out 09/10/2024 09/10/2024 025 2:02 PM CDT Assessment Noted Time PHQ-9 Depression Total Score: 1 09/17/19 21 1:27 PM CDT documented as of this encounter Care Teams Real Estate Sales Associate Relationship Specialty Start Date End Date Wali Chowdhury MD [address] [address] PCP - General Family Medicine 05/10/15 Rosy Llamas APN, FURNACE REPAIRER #[address] [address] Nurse Practitioner Advanced Practice Nurse 12/24/15 Christi Rg MD [address] [facility] [address] [place] [id number] Consulting Physician Obstetrics & Gynecology 11/26/18 documented as of this encounter
--- OUTSIDE RECORDS SUMMARY | 2025-01-24 20:13 | XMS_ITS | Encounter Summary ---
Author Organization [facility] Address [address] [place] [address] Care Team Providers Care Production Worker Name Role Phone Unavailable Primary Care Provider Unavailsamantha e Encounter Details Date Type Department Care Team (Late st Contact Info) Description 12/13/2022 Lab Requisition [facility] - DermPath Lab [address] [place] [address] Daija Maria MD [address] [place], [place] [id number] Dermatitis, unspecified Social History Tobacco Use Types Packs/Day Years [...] Procedure Name Priority Date/Time Associated Diagnosis Comments DERMATOPATHOLOGY Routine 12/13/2022 12:0 0 AM CDT Dermatitis, unspecified [ICD-10-CM] documented in this encounter Results * DERMATOPATHOLOGY (12/13/2022 12:00 AM CDT) Case Report Dermatopathology Report Case: [id number] Authorizing Provider: Daija Maria MD Collected: 12/13/2022 12:00 AM Ordering Location: [facility] DermPath Lab Received: 12/14/2022 06:08 AM Pathologist: Ann Almazan MD Specimen: Skin, left superior upper back 3:59 PM CDT DERMATOPATHOLOGY LABORATORY Final Diagnosis Specimen A. SKIN, left superior upper back: SUPERFICIAL PERIVASCULAR LYMPHOCYTIC INFILTRATE WITH EOSINOPHILS (L27.0) (see microscopic description and comment) (see direct immunofluorescence results [id number] ) 3 3:59 PM CDT DERMATOPATHOLOGY LABORATORY at 1559 CDT Clinical History Hypersensitivity Reaction vs Drug Rash vs ACD, r/o early BP 3 3:59 PM CDT DERMATOPATHOLOGY LABORATORY Gross Description Specimen A: Received is one formalin filled container labeled with the patient's name and designated left superior upper back. The specimen consists of a shave biopsy measuring 12x1x2 mm. Jar 0. 3:59 PM CDT DERMATOPATHOLOGY LABORATORY Microscopic Description Specimen A. SKIN, left superior upper back: Sections show a perivascular and interstitial infiltrate including lymphocytes and eosinophils. There are no prominent epidermal or interface changes. COMMENT: These histological findings are often seen in hypersensitivity reactions to an ingested allergen. See direct immunofluorescence results. 3:59 PM CDT DERMATOPATHOLOGY LABORATORY Disclaimer An external and internal positive and negative controls are appropriate for the histochemical, immunohistochemical and immunofluorescence stain(s) in this case (if any), except where stated explicitly. The performance characteristics of the stain(s) cited in this report were developed and its performance characteristic determined by the Dermatopathology Laboratory at [facility], directed by Dr. Garrett Almazan. These tests need not be, and therefore are not, approved by the [place] Food and Drug Administration. The tests are used for clinical purposes. Billing Codes Specimen Charges Stain Charges 41074 1 3 3:59 PM CDT DERMATOPATHOLOGY LABORATORY Embedded Images 3 3:59 PM CDT DERMATOPATHOLOGY LABORATORY Pathology/Cytolog y TISSUE SPECIMEN FROM SKIN / Unknown 12/13/2022 12/14/2022 6:08 AM CDT Daija Maria MD LAB - PATHOLOGY/CYTOLOGY ESTHER DAVISON Final Result DERMATOPATHOLOGY LABORATORY [facility] - Department of Dermatology [address], [address] [phone] documented in this encounter Visit Diagnoses Diagnosis Dermatitis, unspecified documented in this encounter
--- OUTSIDE RECORDS SUMMARY | 2025-01-24 20:13 | XMS_ITS | Encounter Summary ---
Author Organization [facility] Address [address] [place] [address] Phone Care Team Providers Care Antique Automobiles Repairer Name Role Phone Wali Chowdhury MD Primary Care Provider [phone] Rosy Llamas APN, PATIENT COMPANION Unavailable Christi Rg MD Unavailable Reason for Visit * Reason Comments Medication Refill Encounter Details Date Type Department Care Team (Late st Contact Info) Description 05/23/2023 Refill [facility] [address]2 [place] [phone] Wali Chowdhury MD #[address] [address] Medication Refill Social History Tobacco Use Types [...] CDT Gender Identity Female 05/07/2023 8:21 PM TAR POT MAN Sexual Orientation Not on file documented as of this encounter Miscellaneous Notes * Telephone Encounter - Linda Xiong RN - 05/23/2023 11:43 AM CST PDMP 04/22/23 Medication failed the protocol, provider to review and approve the medication order if appropriate. Requested Prescriptions Pending Prescriptions Disp Refills ALPRAZolam (XANAX) 0.25 MG Tablet [Pharmacy Med Name: ALPRAZOLAM 0.25MG TABLETS] 30 Tablet 0 Sig: TAKE 1 TABLET BY MOUTH EVERY NIGHT NEEDED FOR SLEEP OR ANXIETY Not Delegated - Benzodiazepines Protocol Failed - 05/23/2023 11:42 AM Failed - This refill cannot be delegated Passed - Visit with relevant provider in past 12 months or upcoming 90 days Recent Visits Date Type Provider Dept 02/28/23 Office Visit Marty Hoover APRN, CNP [facility] 08/23/22 Office Visit Marty Hoover APRN, CNP [facility] 06/21/22 Office Visit Marty Hoover APRN, CNP [facility] [place] Showing recent visits within past 365 days and meeting all other requirements Future Appointments No visits were found meeting these conditions. Showing future appointments within next 90 days and meeting all other requirements POT MAN documented in this encounter Plan of Treatment Upcoming Encounters Date Type Department Care Team (Late st Contact Info) Description 02/03/2025 10:30 AM CDT Office Visit [facility] - [facility] - [place] [address]2 [place] [address] Marty Hoover APRN, PATIENT COMPANION [address] [address] documented as of this encounter Visit Diagnoses Diagnosis Anxiety Anxiety state, unspecified documented in this encounter Additional Health Concerns Infection Onset Date Last Indicated Resolved Time COVID - 19 01/24/2024 01/24/2024 01/24/2024 10:2 8 AM CDT COVID - 19 02/25/2024 02/25/2024 02/25/2024 7:42 PM CDT Respiratory Rule-Out 08/13/2024 08/13/2024 025 7:04 PM TAR POT MAN COVID - 19 09/10/2024 09/10/2024 09/10/2024 2:03 PM CDT Respiratory Rule-Out 09/10/2024 09/10/2024 025 2:02 PM CDT Assessment Noted Time PHQ-9 Depression Total Score: 1 09/17/19 21 1:27 PM CDT documented as of this encounter Care Teams [employer] Repairer Relationship Specialty Start Date End Date Wali Chowdhury MD [address] [address] PCP - General Family Medicine 05/10/15 Rosy Llamas, COREROOM FOUNDRY LABORER, PATIENT COMPANION [address] [address] Nurse Practitioner Advanced Practice Nurse 12/24/15 Christi Rg MD [address] [place] [address] Consulting Physician Obstetrics & Gynecology 11/26/18 documented as of this encounter
--- OUTSIDE RECORDS SUMMARY | 2025-01-24 20:13 | XMS_ITS | Encounter Summary ---
Author Organization [facility] Address [address] [place] [address] Phone Care Team Providers Care Rocket Engine Tester Name Role Phone Wali Chowdhury MD Primary Care Provider [phone] Rosy Llamas APN, BATTALION FIRE CHIEF Unavailable Christi Rg MD Unavailable [phone] Reason for Visit * Reason Comments Medication Refill Encounter Details Date Type Department Care Team (Late st Contact Info) Description 09/27/2020 Refill [facility] #2 [place] [phone] Marty Hoover, ORTHOTICS ASSISTANT, BATTALION FIRE CHIEF #[address] [address] Medication Refill Social History Tobacco Use Types Packs/Day Years Used Date Smoking Tobacco: Never Smokeless Tobacco: Never Alcohol Use Standard Drinks/Week Comments No 0 (1 standard drink = 0.6 oz pur e alcohol) PHQ-2 Answer Date Recorded Total Score - Questions 1-9 1 08/24 Sexually Active Control Partners Comments Never Comments No Sex and Gender Information Value Date Recorded Sex Assigned at Not on file Legal Sex Female 11:45 PM CDT Gender Identity Female 05/07/2023 8:21 PM DISTRIBUTION CENTER SUPERVISOR Sexual Orientation Not on file COVID-19 Exposure Response Date Recorded In the last month, have you been in contact with someone who was confirmed or suspected to have Coronavirus / COVID-19? No / Unsure 09/29/2020 1:28 PM CDT documented as of this encounter Miscellaneous Notes * Telephone Encounter - Linda Xiong RN - 09/28/2020 11:29 AM CDT See Marty's note below * Telephone Encounter - Marty Hoover APN, CNP - 09/28/2020 8:33 AM CDT Needs to have Vitamin D rechecked. May not need refill. * Telephone Encounter - Heidi Hernández RN - 09/27/2020 3:58 PM CDT Per nursing clinical judgement, provider to review and approve the medication(s) order(s) if appropriate. Last OV 09/16/20, F/U 01/06/21, Last Lab Vit D 07/09/20 result 16 no new labs, Last Rx 07/09/20 Heidi MATTSON Requested Prescriptions Pending Prescriptions Disp Refills ergocalciferol (VITAMIN D) [address]18 UNIT Capsule [Pharmacy Med Name: VITAMIN D2 1.25MG(50,000 UNIT)] 12 Capsule 0 Sig: TAKE 1 CAPSULE BY MOUTH ONE TIME PER WEEK Off-Protocol Failed - 09/27/2020 1:30 PM Failed - Medication not assigned to a protocol, review manually. Passed - Valid encounter within last 12 months Past Office Visits Recent Outpatient Visits 1 week ago Other fatigue [facility] - Marty Madrigal APN, [place] 2 months ago Hyperlipidemia, unspecified hyperlipidemia type [facility] - Marty Madrigal APN, [place] 1 year ago Strain of thoracic back region [facility] - Marty Madrigal APN, [place] 1 year ago Chronically on benzodiazepine therapy [facility] - Wali Rangel MD 2 years ago Renal mass [facility] - Marty Madrigal APN, CNP Upcoming Appointments Future Appointments In 1 week Lab, [facility], [facility] In 3 months Wali Chowdhury MD [facility] [place], [facility] RUBBER FLAP TUBER MACHINE OPERATOR - Recent and Past Visits Recent Visits Date Type Provider Dept 09/16/20 Office Visit Marty Hoover APN, CNP [facility] 07/09/20 Office Visit Marty Hoover APN, CNP [facility] Showing recent visits within past 460 days with a meds authorizing provider and meeting all other requirements Future Appointments No visits were found meeting these conditions. Showing future appointments within next 90 days with a meds authorizing provider and meeting all other requirements documented in this encounter Plan of Treatment Upcoming Encounters Date Type Department Care Team (Late st Contact Info) Description 02/03/2025 10:30 AM CDT Office Visit [facility] [place] [address] [place] [address] Marty Hoover APRN, CNP #[address] [address] documented as of this encounter Visit Diagnoses Diagnosis Vitamin D deficiency Unspecified vitamin D deficiency documented in this encounter Additional Health Concerns Infection Onset Date Last Indicated Resolved Time COVID - 19 05/29/2022 05/29/2022 05/31/2022 8:12 AM DISTRIBUTION CENTER SUPERVISOR Respiratory Rule-Out 05/29/2022 05/29/2022 022 2:50 PM DISTRIBUTION CENTER SUPERVISOR Respiratory Rule Out - RPA 05/30/2022 05/30/2022 1 08/01/2021 3:50 PM DISTRIBUTION CENTER SUPERVISOR COVID - 19 01/24/2024 01/24/2024 01/24/2024 10:2 8 AM CDT COVID - 19 02/25/2024 02/25/2024 02/25/2024 7:42 PM CDT Respiratory Rule-Out 08/13/2024 08/13/2024 025 7:04 PM DISTRIBUTION CENTER SUPERVISOR COVID - 19 09/10/2024 09/10/2024 09/10/2024 2:03 PM CDT Respiratory Rule-Out 09/10/2024 09/10/2024 025 2:02 PM CDT Assessment Noted Time PHQ-9 Depression Total Score: 1 09/17/19 21 1:27 PM CDT documented as of this encounter Care Teams Rocket Engine Tester Relationship Specialty Start Date End Date Wali Chowdhury MD [address] [place] [address] PCP - General Family Medicine 05/10/15 Rosy Llamas, TALENT ACQUISITION RELATIONSHIP MANAGER, BATTALION FIRE CHIEF [address] [place] [address] Nurse Practitioner Advanced Practice Nurse 12/24/15 Christi Rg MD [address] [place] [address] Consulting Physician Obstetrics & Gynecology 11/26/18 documented as of this encounter
--- OUTSIDE RECORDS SUMMARY | 2025-01-24 20:13 | XMS_ITS | Encounter Summary ---
Author Organization [facility] Address [address] [place] [address] Phone Care Team Providers Care Regional Safety Manager Name Role Phone Wali Chowdhury MD Primary Care Provider [phone] Rosy Llamas APN, FUR DRY CLEANER Unavailable Christi Rg MD Unavailable Reason for Visit * Reason Comments Medication Refill Encounter Details Date Type Department Care Team (Late st Contact Info) Description 11/16/2023 Refill [facility] - [place] [address]2 [place] [phone] Marty Hoover, MANAGER COMPLETIONS, FUR DRY CLEANER #[address] [address] Medication Refill Social History Tobacco Use Types Packs/Day Years Used Date Smoking Tobacco: Never Smokeless Tobacco: Never Alcohol Use Standard Drinks/Week Comments No 0 (1 standard drink = 0.6 oz pur e alcohol) [facility] Utilities Answer Date Recorded In the past 12 months has [employer], gas, oil, or water company threatened to [...] often do you attend chur ch or jainism services? More than 4 times per year 09/17/2023 Do you belong to any clubs o r organizations such as pentecostalism groups, unions, fraternal or athletic groups, or [...] Recorded Total Score - Questions 1-9 0 10/24 [facility] of Occupat ional [facility] - Occupational Stress Questionnaire Answer Date [...] place to sleep or slept in a senior care (including now)? No 09/17/2023 Education Answer Date Recorded What is the highest level of school you have completed or the highest degree you have received? 12th grade 06/20/2022 Sexually Active Control Partners Comments Never Comments No Sex and Gender Information Value Date Recorded Sex Assigned at Not on file Legal Sex Female 11:45 PM CDT Gender Identity Female 05/07/2023 8:21 PM FARM SERVICE CONSULTANT Sexual Orientation Not on file documented as of this encounter Miscellaneous Notes * Telephone Encounter - Linda Xiong RN - 11/16/2023 11:56 AM CDT Images from the original note were not included. amLODIPine Besylate Dispensed Days Supply Quantity Provider Pharmacy AMLODIPINE BESYLATE 5 MG TABS 11/12/2023 90 90 Tablet Wali Chowdhury MD [facility] #... AMLODIPINE BESYLATE 5MG TABLETS 08/19/2023 90 90 Each Marty Hoover APRN, CNP [facility] #... documented in this encounter Plan of Treatment Upcoming Encounters Date Type Department Care Team (Late st Contact Info) Description 02/03/2025 10:30 AM CDT [facility] Visit [facility] Medicine [facility] #2 [place] [address] Marty Hoover APRN, [place] DELIA #[address] [address] documented as of this encounter Visit Diagnoses Diagnosis Chronic heart failure with preserved ejection fraction (HCC) documented in this encounter Additional Health Concerns Infection Onset Date Last Indicated Resolved Time COVID - 19 01/24/2024 01/24/2024 01/24/2024 10:2 8 AM CDT COVID - 02/25/2024 02/25/2024 02/25/2024 7:42 PM CDT Respiratory Rule-Out 08/13/2024 08/13/2024 025 7:04 PM FARM SERVICE CONSULTANT COVID - 09/10/2024 09/10/2024 09/10/2024 2:03 PM CDT Respiratory Rule-Out 09/10/2024 09/10/2024 025 2:02 PM CDT Assessment Noted Time PHQ-9 Depression Total Score: 1 09/17/19 21 1:27 PM CDT documented as of this encounter Care Teams Regional Safety Manager Relationship Specialty Start Date End Date Wali Chowdhury MD [address] [facility] [address] [place] [address] PCP - General Family Medicine 05/10/15 Rosy Llamas, WATER TECHNICIAN, FUR DRY CLEANER #2 [facility] [address] [place] [address] Nurse Practitioner Advanced Practice Nurse 12/24/15 Christi Rg MD [address] [place] [address] Consulting Physician Obstetrics & Gynecology 11/26/18 documented as of this encounter
--- OUTSIDE RECORDS SUMMARY | 2025-01-24 20:13 | XMS_ITS | Encounter Summary ---
Author Organization [facility] Address [address] [place] [address] Phone Care Team Providers Care Wire Tester Name Role Phone Wali Chowdhury MD Primary Care Provider [phone] Rosy Llamas APN, SOIL FERTILITY SPECIALIST Unavailable Christi Rg MD Unavailable [phone] Reason for Visit * Reason Comments Medication Refill Encounter Details Date Type Department Care Team (Late st Contact Info) Description 11/05/2021 [facility]ill [facility] #2 [place] [phone] Wali Chowdhury MD #[address] [address] Medication Refill Social History Tobacco Use Types [...] CDT Gender Identity Female 05/07/2023 8:21 PM GREEN HOUSE MANAGER Sexual Orientation Not on file documented as of this encounter Miscellaneous Notes * Telephone Encounter - Apolonia Cunningham RN - 11/07/2021 10:38 AM CDT Medication failed the protocol, provider to review and approve the medication order if appropriate.Last UDS 10/2018. PDMP reviewed. Requested Prescriptions Pending Prescriptions Disp Refills ALPRAZolam (XANAX) 0.25 MG Tablet [Pharmacy Med Name: ALPRAZOLAM 0.25 MG TABLET] 30 Tablet 0 Sig: TAKE 1 TABLET BY MOUTH NIGHTLY NEEDED FOR SLEEP OR ANXIETY. Not Delegated - Benzodiazepines Protocol Failed - 11/05/2021 2:11 PM Failed - This refill cannot be delegated Passed - Visit with relevant provider in past 12 months or upcoming 90 days Recent Visits Date Type Provider Dept 09/27/21 Office Visit Wali Chowdhury MD [facility] [place] 06/28/21 Telemedicine Rebeca Grimm PAC [facility] 03/29/21 Office Visit Marty Hoover APRN, CNP [facility] [place] 02/03/21 [facility]20 Office Visit Marty Hoover APRN, CNP [facility] Showing recent visits within past 365 days and meeting all other requirements Future Appointments Date Type Provider Dept 12/27/21 Appointment Wali Chowdhury MD [facility] [place] Showing future appointments within next 90 days and meeting all other requirements documented in this encounter Plan of Treatment Upcoming Encounters Date Type Department Care Team (Late st Contact Info) Description 02/03/2025 10:30 AM CDT Office Visit [facility] - Family Medicine - [place] [address]2 [place] [address] Marty Hoover APRN, SOIL FERTILITY SPECIALIST #[address] [address] documented as of this encounter Visit Diagnoses Diagnosis Anxiety Anxiety state, unspecified documented in this encounter Additional Health Concerns Infection Onset Date Last Indicated Resolved Time COVID - 19 05/29/2022 05/29/2022 05/31/2022 8:12 AM GREEN HOUSE MANAGER Respiratory Rule-Out 05/29/2022 05/29/2022 022 2:50 PM GREEN HOUSE MANAGER Respiratory Rule Out - RPA 05/30/2022 05/30/2022 1 08/01/2021 3:50 PM GREEN HOUSE MANAGER COVID - 19 01/24/2024 01/24/2024 01/24/2024 10:2 8 AM CDT COVID - 19 02/25/2024 02/25/2024 02/25/2024 7:42 PM CDT Respiratory Rule-Out 08/13/2024 08/13/2024 025 7:04 PM GREEN HOUSE MANAGER COVID - 19 09/10/2024 09/10/2024 09/10/2024 2:03 PM CDT Respiratory Rule-Out 09/10/2024 09/10/2024 025 2:02 PM CDT Assessment Noted Time PHQ-9 Depression Total Score: 1 09/17/19 21 1:27 PM CDT documented as of this encounter Care Teams Wire Tester Relationship Specialty Start Date End Date Wali Chowdhury MD #[address] [facility] [address] [place] [address] PCP - General Family Medicine 05/10/15 Rosy Llamas, CALL CENTER ANALYST, SOIL FERTILITY SPECIALIST #[address] [facility] [address] [place] [address] Nurse Practitioner Advanced Practice Nurse 12/24/15 Christi Rg MD [address] [place] [address] Consulting Physician Obstetrics & Gynecology 11/26/18 documented as of this encounter
--- OUTSIDE RECORDS SUMMARY | 2025-01-24 20:13 | XMS_ITS ---
Author Organization [facility] Address [address] [place] [address] Phone Care Team Providers Care Cranberry Farm Supervisor Name Role Phone Wali Chowdhury MD Primary Care Provider [phone] Rosy Llamas APN, RADIOGRAPHER TECHNOLOGIST Unavailable Christi Rg MD Unavailable OnCall Chronic Care Management Status:Identified (Enrolling) Start date:01/23/2025 Enrollment reason:Identified using claims or encounter data Related social drivers of health:Intimate Partner Violence, Social Connections, Alcohol Use, Tobacco Use, Financial Resource Strain,Depression, Stress, Physical Activity, Food Insecurity, Transportation Needs, Housing Stability, Utilities Continued Care and Services Coordination
--- OUTSIDE RECORDS SUMMARY | 2025-01-24 20:13 | XMS_ITS | Encounter Summary ---
Author Organization [facility] Address [address] [place] [address] Phone Care Team Providers Care License Distributor Name Role Phone Wali Chowdhury MD Primary Care Provider [phone] Rosy Llamas APN, SULFUR CHLORIDE OPERATOR Unavailable Christi Rg MD Unavailable Reason for Visit * Reason Comments Medication Refill Encounter Details Date Type Department Care Team (Late st Contact Info) Description 11/17/2022 Refill [facility] #2 [place] [phone] Wali Chowdhury MD #[address] [address] Medication Refill Social History Tobacco Use Types [...] CDT Gender Identity Female 05/07/2023 8:21 PM INSTRUMENT MECHANIC Sexual Orientation Not on file documented as of this encounter Miscellaneous Notes * Telephone Encounter - Linda Xiong RN - 11/17/2022 1:32 PM CDT PDMP 09/14/22 Medication failed the protocol, provider to review and approve the medication order if appropriate. Requested Prescriptions Pending Prescriptions Disp Refills ALPRAZolam (XANAX) 0.25 MG Tablet [Pharmacy Med Name: ALPRAZOLAM 0.25MG TABLETS] 30 Tablet 0 Sig: TAKE 1 TABLET BY MOUTH EVERY NIGHT FOR SLEEP OR ANXIETY Not Delegated - Benzodiazepines Protocol Failed - 11/17/2022 12:45 PM Failed - This refill cannot be delegated Passed - Visit with relevant provider in past 12 months or upcoming 90 days Recent Visits Date Type Provider Dept 08/23/22 Office Visit Marty Hoover APRN, CNP [facility] 06/21/22 Office Visit Marty Hoover APRN, CNP [facility] [place] 04/13/22 Office Visit Wali Chowdhury MD [facility] 12/27/21 Office Visit [facility] Showing recent visits within past 365 days and meeting all other requirements Future Appointments No visits were found meeting these conditions. Showing future appointments within next 90 days and meeting all other requirements documented in this encounter Plan of Treatment Upcoming Encounters Date Type Department Care Team (Late st Contact Info) Description 02/03/2025 10:30 AM CDT Office Visit [facility] - Family Medicine - [place] #2 [place] [address] Marty Hoover APRN, SULFUR CHLORIDE OPERATOR #[address] [address] documented as of this encounter Visit Diagnoses Diagnosis Anxiety Anxiety state, unspecified documented in this encounter Additional Health Concerns Infection Onset Date Last Indicated Resolved Time COVID - 19 01/24/2024 01/24/2024 01/24/2024 10:2 8 AM CDT COVID - 19 02/25/2024 02/25/2024 02/25/2024 7:42 PM CDT Respiratory Rule-Out 08/13/2024 08/13/2024 025 7:04 PM INSTRUMENT MECHANIC COVID - 19 09/10/2024 09/10/2024 09/10/2024 2:03 PM CDT Respiratory Rule-Out 09/10/2024 09/10/2024 025 2:02 PM CDT Assessment Noted Time PHQ-9 Depression Total Score: 1 09/17/19 21 1:27 PM CDT documented as of this encounter Care Teams License Distributor Relationship Specialty Start Date End Date Wali Chowdhury MD [address] [address] PCP - General Family Medicine 05/10/15 Rosy Llamas, PROCESSOR HELPER, SULFUR CHLORIDE OPERATOR #[address] [address] Nurse Practitioner Advanced Practice Nurse 12/24/15 Christi Rg MD [address] [place], [place] [address], [place] [address] Consulting Physician Obstetrics & Gynecology 11/26/18 documented as of this encounter
--- OUTSIDE RECORDS SUMMARY | 2025-01-24 20:13 | XMS_ITS | Encounter Summary ---
Author Organization [facility] Address [address] [place] [address] Phone Care Team Providers Care Link Trainer Teacher Name Role Phone Wali Chowdhury MD Primary Care Provider [phone] Rosy Llamas APN, TERRITORY BUSINESS MANAGER Unavailable Christi Rg MD Unavailable Reason for Visit * Reason Comments Medication Refill Encounter Details Date Type Department Care Team (Late st Contact Info) Description 03/21/2024 [facility]ill [facility] - [place] [address]2 [place] [phone] Marty Hoover, ICU STAFF NURSE, TERRITORY BUSINESS MANAGER #[address] [address] Medication Refill Social History Tobacco Use Types Packs/Day Years Used Date Smoking Tobacco: Never Smokeless Tobacco: Never Alcohol Use Standard Drinks/Week Comments Never 0 (1 standard drink = 0.6 oz pur e alcohol) [facility] Utilities Answer Date Recorded In the past 12 months has [employer], gas, oil, or water company threatened to [...] week 02/26/2024 How often do you attend chur ch or sabianist services? More than 4 times per year 02/26/2024 Do you belong to any clubs o r organizations such as caodaism groups, unions, fraternal or athletic groups, or [...] Recorded Total Score - Questions 1-9 0 02/24 [facility] - Occupational Stress [...] place to sleep or slept in a fci (including now)? No 09/17/2023 Housing Stability Vital Sign Answer Brian e Recorded In the last 12 months, was t here a time when you were not able to pay the mortgage or rent on time? No 02/26/2024 In the past 12 months, how m any times have you moved where you were living? 0 02/26/2024 At any time in the past 12 m [facility], were you homeless or living in a fci (including now)? No 02/26/2024 Education Answer Date [...] CDT Gender Identity Female 05/07/2023 8:21 PM GAME PROGRAMMER Sexual Orientation Not on file documented as of this encounter Miscellaneous Notes * Telephone Encounter - Linda Xiong RN - 03/21/2024 2:11 PM CDT Images from the original note were not included. Atorvastatin Calcium Dispensed Days Supply Quantity Provider Pharmacy ATORVASTATIN 10MG TABLETS 03/19/2024 90 90 Each Marty Hoover APRN, [place] [facility]. documented in this encounter Plan of Treatment Upcoming Encounters Date Type Department Care Team (Late st Contact Info) Description 02/03/2025 10:30 AM CDT Office Visit [facility] - [place] [address] [place] [address] Marty Hoover APRN, TERRITORY BUSINESS MANAGER [facility] [address] [address] documented as of this encounter Visit Diagnoses Diagnosis Pure hypercholesterolemia documented in this encounter Additional Health Concerns Infection Onset Date Last Indicated Resolved Time Respiratory Rule-Out 08/13/2024 08/13/2024 025 7:04 PM GAME PROGRAMMER COVID - 19 09/10/2024 09/10/2024 09/10/2024 2:03 PM CDT Respiratory Rule-Out 09/10/2024 09/10/2024 025 2:02 PM CDT Assessment Noted Time PHQ-9 Depression Total Score: 0 03/17/20 24 8:35 AM CDT documented as of this encounter Care Teams Link Trainer Teacher Relationship Specialty Start Date End Date [facility] Chowdhury [facility] [address] PCP - General Family Medicine 05/10/15 Rosy Llamas APN, TERRITORY BUSINESS MANAGER #[address] [address] Nurse Practitioner Advanced Practice Nurse 12/24/15 Christi Rg MD [address] [address] Consulting Physician Obstetrics & Gynecology 11/26/18 documented as of this encounter
--- OUTSIDE RECORDS SUMMARY | 2025-01-24 20:13 | XMS_ITS | Encounter Summary ---
Author Organization [facility] Address [address] [place] [address] Phone Care Team Providers Care Town Planner Name Role Phone Wali Chowdhury MD Primary Care Provider [phone] Rosy Llamas APN, MECHANICAL ASSEMBLER Unavailable Christi Rg MD Unavailable Reason for Visit * Reason Comments Medication Refill Encounter Details Date Type Department Care Team (Late st Contact Info) Description 09/05/2023 Refill [facility] #2 [place] [phone] Wali Chowdhury MD #[address] [address] Medication Refill Social History Tobacco Use Types [...] CDT Gender Identity Female 05/07/2023 8:21 PM ELECTRICAL SUBCONTRACTOR Sexual Orientation Not on file documented as of this encounter Miscellaneous Notes * Telephone Encounter - Linda Xiong RN - 09/05/2023 12:36 PM CDT Medication(s) [facility] Medication Refill Standing Order for Pediatricand Adult Patients. Requested Prescriptions Pending Prescriptions Disp Refills amLODIPine (NORVASC) 5 MG Tablet [Pharmacy Med Name: AMLODIPINE BESYLATE 5MG TABLETS] 90 Tablet 1 Sig: Take 1 Tablet by mouth daily. Calcium-Channel Blockers Protocol Passed - 09/05/2023 6:44 AM Passed - BP on record in the past year Clinician-entered: BP Readings from Last 3 Encounters: 02/28/23 122/62 08/23/22 122/66 06/27/22 132/60 Patient-entered: No data recorded Passed - Visit with relevant provider in past 12 months or upcoming 90 days Recent Visits Date Type Provider Dept 02/28/23 Office Visit Marty Hoover APRN, CNP [facility] [place] Showing recent visits within past 365 days and meeting all other requirements Future Appointments Date Type Provider Dept 09/17/23 Appointment Marty Hoover APRN, CNP [facility] [place] Showing future appointments within next 90 days and meeting all other requirements documented in this encounter Plan of Treatment Upcoming Encounters Date Type Department Care Team (Late st Contact Info) Description 02/03/2025 10:30 AM CDT [facility] Visit [facility] [place] [address]2 [place] [address] Marty Hoover APRN, [place] [facility] #[address] [address] documented as of this encounter Visit Diagnoses Diagnosis Chronic heart failure with preserved ejection fraction (HCC) documented in this encounter Additional Health Concerns Infection Onset Date Last Indicated Resolved Time COVID - 19 01/24/2024 01/24/2024 01/24/2024 10:2 8 AM CDT COVID - 19 02/25/2024 02/25/2024 02/25/2024 7:42 PM CDT Respiratory Rule-Out 08/13/2024 08/13/2024 025 7:04 PM ELECTRICAL SUBCONTRACTOR COVID - 19 09/10/2024 09/10/2024 09/10/2024 2:03 PM CDT Respiratory Rule-Out 09/10/2024 09/10/2024 025 2:02 PM CDT Assessment Noted Time PHQ-9 Depression Total Score: 1 09/17/19 21 1:27 PM CDT documented as of this encounter Care Teams Town Planner Relationship Specialty Start Date End Date Wali Chowdhury MD #[address] [address] PCP - General Family Medicine 05/10/15 Rosy Llamas, COATING TECHNICIAN, MECHANICAL ASSEMBLER #[address] [address] Nurse Practitioner Advanced Practice Nurse 12/24/15 Christi Rg MD [address] [place] [address] Consulting Physician Obstetrics & Gynecology 11/26/18 documented as of this encounter
--- OUTSIDE RECORDS SUMMARY | 2025-01-24 20:13 | XMS_ITS | Encounter Summary ---
Author Organization [facility] Address [address] [place] [address] Phone Care Team Providers Care Slasher Operator Name Role Phone Wali Chowdhury MD Primary Care Provider [phone] Rosy Llamas APN, READINESS PARAPROFESSIONAL Unavailable Christi Rg MD Unavailable [phone] Reason for Visit * Reason Comments Medication Refill Encounter Details Date Type Department Care Team (Late st Contact Info) Description 08/10/2021 Refill [facility] #2 [place] [phone] Wali Chowdhury MD #[address] [address] Medication Refill Social History Tobacco Use Types [...] CDT Gender Identity Female 05/07/2023 8:21 PM ENVIRONMENTAL PLANNING ENGINEER Sexual Orientation Not on file documented as of this encounter Miscellaneous Notes * Telephone Encounter - Linda Xiong RN - 08/11/2021 7:58 AM CST PDMP 06/30/21 Medication failed the protocol, provider to review and approve the medication order if appropriate. Requested Prescriptions Pending Prescriptions Disp Refills ALPRAZolam (XANAX) 0.25 MG Tablet [Pharmacy Med Name: ALPRAZOLAM 0.25 MG TABLET] 30 Tablet 0 Sig: Take 1 Tablet by mouth nightly as needed for Sleep or Anxiety. Not Delegated - Off Protocol Failed - 08/10/2021 11:00 AM Failed - This refill cannot be delegated Passed - Visit with relevant provider in past 12 months or upcoming 90 days Recent Visits Date Type Provider Dept 06/28/21 Telemedicine Rebeca Grimm PAC [facility] 03/29/21 Office Visit Marty Hoover APRN, [facility]21 Office [facility]/06/20 Office Visit [facility] APR[facility], [facility] 09/16/20 Office Visit Marty Hoover APRN, [facility] Showing recent visits within past 365 days and meeting all other requirements Future Appointments Date Type Provider Dept 09/27/21 Appointment Wal[facility] Chowdh[facility] future appointments within next 90 days and meeting all other requirements RONMENTAL PLANNING ENGINEER documented in this encounter Plan of Treatment Upcoming Encounters Date Type Department Care Team (Late st Contact Info) Description 02/03/2025 10:30 AM CDT Office Visit [facility] - Family Medicine - [place] [address]2 [place] [address] Marty Hoover APRN, [place] [address] [address] documented as of this encounter Visit Diagnoses Diagnosis Anxiety Anxiety state, unspecified documented in this encounter Additional Health Concerns Infection Onset Date Last Indicated Resolved Time COVID - 19 05/29/2022 05/29/2022 05/31/2022 8:12 AM ENVIRONMENTAL PLANNING ENGINEER Respiratory Rule-Out 05/29/2022 05/29/2022 022 2:50 PM ENVIRONMENTAL PLANNING ENGINEER Respiratory Rule Out - RPA 05/30/2022 05/30/2022 1 08/01/2021 3:50 PM ENVIRONMENTAL PLANNING ENGINEER COVID - 19 01/24/2024 01/24/2024 01/24/2024 10:2 8 AM CDT COVID - 19 02/25/2024 02/25/2024 02/25/2024 7:42 PM CDT Respiratory Rule-Out 08/13/2024 08/13/2024 025 7:04 PM ENVIRONMENTAL PLANNING ENGINEER COVID - 19 09/10/2024 09/10/2024 09/10/2024 2:03 PM CDT Respiratory Rule-Out 09/10/2024 09/10/2024 025 2:02 PM CDT Assessment Noted Time PHQ-9 Depression Total Score: 1 09/17/19 21 1:27 PM CDT documented as of this encounter Care Teams Slasher Operator Relationship Specialty Start Date End Date Wali Chowdhury MD #[address] [facility] [address] [place] [address] PCP - General Family Medicine 05/10/15 Rosy Llamas, ART EDUCATION PROFESSOR, READINESS PARAPROFESSIONAL #[address] [facility] [address] [place] [address] Nurse Practitioner Advanced Practice Nurse 12/24/15 Christi Rg MD [address] [place] [address] Consulting Physician Obstetrics & Gynecology 11/26/18 documented as of this encounter
--- OUTSIDE RECORDS SUMMARY | 2025-01-24 20:13 | XMS_ITS | Encounter Summary ---
Author Organization [facility] Address [address] [place] [address] Phone Care Team Providers Care Personnel Director Name Role Phone Wali Chowdhury MD Primary Care Provider [phone] Rosy Llamas APN, DISTRICT FIRE CHIEF Unavailable Christi Rg MD Unavailable Reason for Visit * Reason Comments Medication Refill Encounter Details Date Type Department Care Team (Late st Contact Info) Description 09/13/2022 Refill [facility] #2 [place] [phone] Wali Chowdhury MD #[address] [address] Medication Refill Social History Tobacco Use Types [...] CDT Gender Identity Female 05/07/2023 8:21 PM ARTIFICIAL FLOWERS SUPERVISOR Sexual Orientation Not on file COVID-19 Exposure Response Date Recorded In the last 10 days, have yo u been in contact with someone who was confirmed or suspected to have Coronavirus/COVID-19? No / Unsure 08/23/2022 1:54 PM ARTIFICIAL FLOWERS SUPERVISOR documented as of this encounter Miscellaneous Notes * Telephone Encounter - Linda Xiong RN - 09/14/2022 8:31 AM CDT PDMP 08/08/22 Medication failed the protocol, provider to review and approve the medication order if appropriate. Requested Prescriptions Pending Prescriptions Disp Refills ALPRAZolam (XANAX) 0.25 MG Tablet [Pharmacy Med Name: ALPRAZOLAM 0.25MG TABLETS] 30 Tablet 0 Sig: TAKE 1 TABLET BY MOUTH EVERY NIGHT NEEDED FOR SLEEP OR ANXIETY Not Delegated - Benzodiazepines Protocol Failed - 09/13/2022 3:05 PM Failed - This refill cannot be delegated Passed - Visit with relevant provider in past 12 months or upcoming 90 days Recent Visits Date Type Provider Dept 08/23/22 Office Visit Marty Hoover APRN, [facility] 06/21/22 Office Visit Marty Hoover APRN, CNP [facility] 04/13/22 Office Visit Wali Chowdhury MD [facility] 12/27/21 Office Visit Wali Chowdhury MD [facility] 09/27/21 [facility] visits within past 365 days and meeting all other requirements Future Appointments No visits were found meeting these conditions. Showing future appointments within next 90 days and meeting all other requirements documented in this encounter Plan of Treatment Upcoming Encounters Date Type Department Care Team (Late st Contact Info) Description 02/03/2025 10:30 AM CDT Office Visit [facility] - Family Medicine - [place] #2 [place] [address] Marty Hoover APRN, DISTRICT FIRE CHIEF #2 [facility] [place] [address] documented as of this encounter Visit Diagnoses Diagnosis Anxiety Anxiety state, unspecified documented in this encounter Additional Health Concerns Infection Onset Date Last Indicated Resolved Time COVID - 19 01/24/2024 01/24/2024 01/24/2024 10:2 8 AM CDT COVID - 19 02/25/2024 02/25/2024 02/25/2024 7:42 PM CDT Respiratory Rule-Out 08/13/2024 08/13/2024 025 7:04 PM ARTIFICIAL FLOWERS SUPERVISOR COVID - 19 09/10/2024 09/10/2024 09/10/2024 2:03 PM CDT Respiratory Rule-Out 09/10/2024 09/10/2024 025 2:02 PM CDT Assessment Noted Time PHQ-9 Depression Total Score: 1 09/17/19 21 1:27 PM CDT documented as of this encounter Care Teams Personnel Director Relationship Specialty Start Date End Date Wali Chowdhury MD #2 [facility] [place] [address] PCP - General Family Medicine 05/10/15 Rosy Llamas APN, DISTRICT FIRE CHIEF #2 [facility] [place] [address] Nurse Practitioner Advanced Practice Nurse 12/24/15 Christi Rg MD [address] [place] [address] Consulting Physician Obstetrics & Gynecology 11/26/18 documented as of this encounter
--- OUTSIDE RECORDS SUMMARY | 2025-01-24 20:13 | XMS_ITS | Encounter Summary ---
Author Organization [facility] Address [address] [place] [address] Phone Care Team Providers Care Boom Cat Operator Name Role Phone Wali Chowdhury MD Primary Care Provider [phone] Rosy Llamas APN, INJECTION WAX MOLDER Unavailable Christi Rg MD Unavailable Reason for Visit * Reason Comments Medication Refill Encounter Details Date Type Department Care Team (Late st Contact Info) Description 04/22/2021 Refill [facility] - [facility] - [place] #2 [place] [address] Marty Hoover, TAXONOMIST, INJECTION WAX MOLDER #[address] [address] Medication Refill Social History Tobacco Use Types [...] CDT Gender Identity Female 05/07/2023 8:21 PM CLIENT TECHNOLOGIES ANALYST Sexual Orientation Not on file COVID-19 Exposure Response Date Recorded In the last month, have you been in contact with someone who was confirmed or suspected to have Coronavirus / COVID-19? No / Unsure 03/29/2021 3:20 PM CDT documented as of this encounter Miscellaneous Notes * Telephone Encounter - Linda Xiong RN - 04/22/2021 2:37 PM CDT [place] PDMP 03/17/21 - last appt 03/29/21 - follow up 09/27/21 Medication failed the protocol, provider to review and approve the medication order if appropriate. Requested Prescriptions Pending Prescriptions Disp Refills ALPRAZolam (XANAX) 0.25 MG Tablet [Pharmacy Med Name: ALPRAZOLAM 0.25 MG TABLET] 30 Tablet 0 Sig: TAKE 1 TABLET BY MOUTH NIGHTLY NEEDED FOR SLEEP OR ANXIETY There is no refill protocol information for this order documented in this encounter Plan of Treatment Upcoming Encounters Date Type Department Care Team (Late st Contact Info) Description 02/03/2025 10:30 AM CDT [facility] Visit [facility] - [place] #2 [place] [address] Marty Hoover APRN, INJECTION WAX MOLDER #[address] [address] documented as of this encounter Visit Diagnoses Diagnosis Anxiety Anxiety state, unspecified documented in this encounter Additional Health Concerns Infection Onset Date Last Indicated Resolved Time COVID - 19 05/29/2022 05/29/2022 05/31/2022 8:12 AM CLIENT TECHNOLOGIES ANALYST Respiratory Rule-Out 05/29/2022 05/29/2022 022 2:50 PM CLIENT TECHNOLOGIES ANALYST Respiratory Rule Out - RPA 05/30/2022 05/30/2022 1 08/01/2021 3:50 PM CLIENT TECHNOLOGIES ANALYST COVID - 19 01/24/2024 01/24/2024 01/24/2024 10:2 8 AM CDT COVID - 19 02/25/2024 02/25/2024 02/25/2024 7:42 PM CDT Respiratory Rule-Out 08/13/2024 08/13/2024 025 7:04 PM CLIENT TECHNOLOGIES ANALYST COVID - 19 09/10/2024 09/10/2024 09/10/2024 2:03 PM CDT Respiratory Rule-Out 09/10/2024 09/10/2024 025 2:02 PM CDT Assessment Noted Time PHQ-9 Depression Total Score: 1 09/17/19 21 1:27 PM CDT documented as of this encounter Care Teams Boom Cat Operator Relationship Specialty Start Date End Date Wali Chowdhury MD #[address] [facility] [address] [place] [address] PCP - General Family Medicine 05/10/15 Rosy Llamas, PUPPET MAKER, INJECTION WAX MOLDER #[address] [facility] [address] [place] [address] Nurse Practitioner Advanced Practice Nurse 12/24/15 Christi Rg MD [address] [place] [address] Consulting Physician Obstetrics & Gynecology 11/26/18 documented as of this encounter
--- OUTSIDE RECORDS SUMMARY | 2025-01-24 20:13 | XMS_ITS | Encounter Summary ---
Author Organization [facility] Address [address] [place] [address] Phone Care Team Providers Care Biometrics Experimentalist Name Role Phone Wali Chowdhury MD Primary Care Provider [phone] Rosy Llamas APN, TONGUE STITCHER Unavailable Christi Rg MD Unavailable Reason for Visit * Reason Comments Medication Refill Encounter Details Date Type Department Care Team (Late st Contact Info) Description 04/19/2023 Refill [facility] - [place] #2 [place] [phone] Marty Hoover, CELL STRIPPER, TONGUE STITCHER #[address] [address] Medication Refill Social History Tobacco Use Types [...] CDT Gender Identity Female 05/07/2023 8:21 PM ROCK WOOL APPLICATOR Sexual Orientation Not on file documented as of this encounter Miscellaneous Notes * Telephone Encounter - Linda Xiong RN - 04/20/2023 12:58 PM CDT PDMP 03/07/23 Medication failed the protocol, provider to review and approve the medication order if appropriate. Requested Prescriptions Pending Prescriptions Disp Refills ALPRAZolam (XANAX) 0.25 MG Tablet [Pharmacy Med Name: ALPRAZOLAM 0.25MG TABLETS] 30 Tablet 0 Sig: TAKE 1 TABLET BY MOUTH EVERY NIGHT NEEDED FOR SLEEP OR ANXIETY Not Delegated - Benzodiazepines Protocol Failed - 04/19/2023 3:20 PM Failed - This refill cannot be delegated Passed - Visit with relevant provider in past 12 months or upcoming 90 days Recent Visits Date Type Provider Dept 02/28/23 Office Visit Marty Hoover APRN, CNP [facility] 08/23/22 Office Visit Marty Hoover APRN, CNP [facility] 06/21/22 Office Visit Marty Hoover APRN, CNP [facility] [place] Showing recent visits within past 365 days and meeting all other requirements Future Appointments No visits were found meeting these conditions. Showing future appointments within next 90 days and meeting all other requirements documented in this encounter Plan of Treatment Upcoming Encounters Date Type Department Care Team (Late st Contact Info) Description 02/03/2025 10:30 AM CDT Office Visit [facility] Medical Group - Family Medicine - [place] #[address] [place] [address] Marty Hoover APRN, [place] #[address] [address] documented as of this encounter Visit Diagnoses Diagnosis Anxiety Anxiety state, unspecified documented in this encounter Additional Health Concerns Infection Onset Date Last Indicated Resolved Time COVID - 19 01/24/2024 01/24/2024 01/24/2024 10:2 8 AM CDT COVID - 19 02/25/2024 02/25/2024 02/25/2024 7:42 PM CDT Respiratory Rule-Out 08/13/2024 08/13/2024 025 7:04 PM ROCK WOOL APPLICATOR COVID - 19 09/10/2024 09/10/2024 09/10/2024 2:03 PM CDT Respiratory Rule-Out 09/10/2024 09/10/2024 025 2:02 PM CDT Assessment Noted Time PHQ-9 Depression Total Score: 1 09/17/19 21 1:27 PM CDT documented as of this encounter Care Teams Biometrics Experimentalist Relationship Specialty Start Date End Date Wali Chowdhury MD #[address] [address] PCP - General Family Medicine 05/10/15 Rosy Llamas, ROOF PROMENADE TILE SETTER, TONGUE STITCHER #[address] [address] Nurse Practitioner Advanced Practice Nurse 12/24/15 Christi Rg MD [address] [place], [place] [address], [place] [address] Consulting Physician Obstetrics & Gynecology 11/26/18 documented as of this encounter
--- OUTSIDE RECORDS SUMMARY | 2025-01-24 20:13 | XMS_ITS | Encounter Summary ---
Author Organization [facility] Address [address] [place] [address] Phone Care Team Providers Care Laser Specialist Name Role Phone Wali Chowdhury MD Primary Care Provider [phone] Rosy Llamas APN, MEDICAL LEAD Unavailable Christi Rg MD Unavailable Reason for Visit * Reason Comments Medication Refill Encounter Details Date Type Department Care Team (Late st Contact Info) Description 08/12/2020 Refill [facility] - [place] [address]2 [place] [id number] Marty Hoover, SAP DATA ANALYST, MEDICAL LEAD [address] [address] Medication Refill Social History Tobacco Use Types Packs/Day Years Used Date Smoking Tobacco: Never Smokeless Tobacco: Never Alcohol Use Standard Drinks/Week Comments No 0 (1 standard drink = 0.6 oz pur e alcohol) PHQ-2 Answer Date Recorded PHQ-2 Score 0 02/20/2019 Sexually Active Control Partners Comments Never Comments No Sex and Gender Information Value Date Recorded Sex Assigned at Not on file Legal Sex Female 11:45 PM CDT Gender Identity Female 05/07/2023 8:21 PM MONEY MARKET DEALER Sexual Orientation Not on file documented as of this encounter Miscellaneous Notes * Telephone Encounter - Marty Hoover APN, CNP - 08/13/2020 8:33 AM CST PDMP reviewed Y MARKET DEALER * Telephone Encounter - Laurita Nunez RN - 08/13/2020 8:29 AM CST Medication failed the protocol, provider to review and approve the medication order if appropriate. Requested Prescriptions Pending Prescriptions Disp Refills ALPRAZolam (XANAX) 0.25 MG Tablet [Pharmacy Med Name: ALPRAZOLAM 0.25 MG TABLET] 30 Tablet 0 Sig: TAKE 1 TABLET BY MOUTH NIGHTLY NEEDED FOR SLEEP OR ANXIETY Not Delegated - Psychiatry: Anxiolytics/Hypnotics Failed - 08/12/2020 10:47 PM Failed - This refill cannot be delegated Passed - Valid encounter within last 6 months Past Office Visits Recent Outpatient Visits 1 month ago Hyperlipidemia, unspecified hyperlipidemia type [facility] Marty Madrigal APN, CNP 1 year ago Strain of thoracic back region [facility] Marty Madrigal APN, CNP 1 year ago Chronically on benzodiazepine therapy [facility] Wali Rangel MD 2 years ago Renal mass [facility] Marty Madrigal APN, CNP 2 years ago Overweight (BMI 25.0-29.9) [facility] Wali Rangel MD Upcoming Appointments Future Appointments In 1 month Clinic, [facility] Nurse [facility] JODIE Miguel In 4 months Wali Chowdhury MD [facility] SUPERVISOR STAGE CARPENTRY - Recent and Past Visits Recent Visits Date Type Provider Dept 07/09/20 Office Visit Marty Hoover APN, CNP [facility] Showing recent visits within past 460 days with a meds authorizing provider and meeting all other requirements Future Appointments No visits were found meeting these conditions. Showing future appointments within next 90 days with a meds authorizing provider and meeting all other requirements Y MARKET DEALER documented in this encounter Plan of Treatment Upcoming Encounters Date Type Department Care Team (Late st Contact Info) Description 02/03/2025 10:30 AM CDT Office Visit [facility] [address] [place] [address] Marty Hoover APRN, MEDICAL LEAD [address] [address] documented as of this encounter Visit Diagnoses Diagnosis Anxiety Anxiety state, unspecified documented in this encounter Additional Health Concerns Infection Onset Date Last Indicated Resolved Time COVID - 19 09/16/2020 09/16/2020 09/18/2020 6:37 AM CDT COVID - 19 05/29/2022 05/29/2022 05/31/2022 8:12 AM MONEY MARKET DEALER Respiratory Rule-Out 05/29/2022 05/29/2022 022 2:50 PM MONEY MARKET DEALER Respiratory Rule Out - RPA 05/30/2022 05/30/2022 1 08/01/2021 3:50 PM MONEY MARKET DEALER COVID - 19 01/24/2024 01/24/2024 01/24/2024 10:2 8 AM CDT COVID - 19 02/25/2024 02/25/2024 02/25/2024 7:42 PM CDT Respiratory Rule-Out 08/13/2024 08/13/2024 025 7:04 PM MONEY MARKET DEALER COVID - 19 09/10/2024 09/10/2024 09/10/2024 2:03 PM CDT Respiratory Rule-Out 09/10/2024 09/10/2024 025 2:02 PM CDT Assessment Noted Time PHQ-9 Depression Total Score: 0 11/08/19 11:11 AM CDT documented as of this encounter Care Teams Laser Specialist Relationship Specialty Start Date End Date Wali Chowdhury MD [address] [address] PCP - General Family Medicine 05/10/15 Rosy Llamas APN, MEDICAL LEAD [address] [facility] SAL[address] [address] [place] [id number] Nurse Practitioner Advanced Practice Nurse 12/24/15 Christi Rg MD [address] SALIN[address] [place] [address] Consulting Physician Obstetrics & Gynecology 11/26/18 documented as of this encounter
--- OUTSIDE RECORDS SUMMARY | 2025-01-24 20:13 | XMS_ITS | Encounter Summary ---
Author Organization [facility] Address [address] [place] [address] Phone Care Team Providers Care Backup Administrator Name Role Phone Wali Chowdhury MD Primary Care Provider [phone] Rosy Llamas APN, VENEER CLIPPER HELPER Unavailable Christi Rg MD Unavailable Reason for Visit * Reason Comments Medication Refill Encounter Details Date Type Department Care Team (Late st Contact Info) Description 01/30/2022 [facility]ill [facility] [place] [phone] Wali Chowdhury MD #[address] [address] Medication Refill Social History Tobacco Use Types [...] CDT Gender Identity Female 05/07/2023 8:21 PM SEO STRATEGIST Sexual Orientation Not on file documented as of this encounter Miscellaneous Notes * Telephone Encounter - Linda Xiong RN - 01/30/2022 3:33 PM CDT PDMP 11/07/21 Medication failed the protocol, provider to review and approve the medication order if appropriate. Requested Prescriptions Pending Prescriptions Disp Refills ALPRAZolam (XANAX) 0.25 MG Tablet [Pharmacy Med Name: ALPRAZOLAM 0.25 MG TABLET] 30 Tablet 0 Sig: TAKE 1 TABLET BY MOUTH NIGHTLY NEEDED FOR SLEEP OR ANXIETY. Not Delegated - Benzodiazepines Protocol Failed - 01/30/2022 2:32 AM Failed - This refill cannot be delegated Passed - Visit with relevant provider in past 12 months or upcoming 90 days Recent Visits Date Type Provider Dept 12/27/21 Office Visit Wali Chowdhury MD [facility] 09/27/21 [facility]medicine Rebeca Grimm [facility] 03/29/21 Office Visit Marty Hoover APRN, [place] DEL[facility] 02/03/21 Office Visit Wali Chowdhury MD [facility] Showing recent visits within past 365 days and meeting all other requirements Future Appointments Date Type Provider Dept 04/04/22 Appointment Wali Chowdhury MD [facility] Showing future appointments within next 90 days and meeting all other requirements documented in this encounter Plan of Treatment Upcoming Encounters Date Type Department Care Team (Late st Contact Info) Description 02/03/2025 10:30 AM CDT Office Visit [facility] - Family Medicine - [place] [address] [place] [address] Marty Hoover APRN, VENEER CLIPPER HELPER [address] [address] documented as of this encounter Visit Diagnoses Diagnosis Anxiety Anxiety state, unspecified documented in this encounter Additional Health Concerns Infection Onset Date Last Indicated Resolved Time COVID - 19 05/29/2022 05/29/2022 05/31/2022 8:12 AM SEO STRATEGIST Respiratory Rule-Out 05/29/2022 05/29/2022 022 2:50 PM SEO STRATEGIST Respiratory Rule Out - RPA 05/30/2022 05/30/2022 1 08/01/2021 3:50 PM SEO STRATEGIST COVID - 19 01/24/2024 01/24/2024 01/24/2024 10:2 8 AM CDT COVID - 19 02/25/2024 02/25/2024 02/25/2024 7:42 PM CDT Respiratory Rule-Out 08/13/2024 08/13/2024 025 7:04 PM SEO STRATEGIST COVID - 19 09/10/2024 09/10/2024 09/10/2024 2:03 PM CDT Respiratory Rule-Out 09/10/2024 09/10/2024 025 2:02 PM CDT Assessment Noted Time PHQ-9 Depression Total Score: 1 09/17/19 21 1:27 PM CDT documented as of this encounter Care Teams Backup Administrator Relationship Specialty Start Date End Date Wali Chowdhury MD [address] [facility] [address] [place] [address] PCP - General Family Medicine 05/10/15 Rosy Llamas, ANALYST COMPETITIVE INTELLIGENCE, VENEER CLIPPER HELPER [address] [facility] [facility] [address] [place] [address] Nurse Practitioner Advanced Practice Nurse 12/24/15 Christi Rg MD [address] [place] [address] Consulting Physician Obstetrics & Gynecology 11/26/18 documented as of this encounter
--- OUTSIDE RECORDS SUMMARY | 2025-01-24 20:13 | XMS_ITS | Referral Summary ---
Author Organization [facility] [address] Address [address] [place] [address] Phone Care Team Providers Care Custodian Supervisor Name Role Phone Wali Chowdhury MD Primary Care Provider [phone] Encounters Date Type Department Care Team Description 01/15/[address] [facility] [address] [place] [address] Lizeth Rosario DO Screening mammogram for breast cancer (Primary Dx) from Last 3 Months Allergies Active Allergy Reactions Criticality Noted Date [...] Shortness of breath 11/27/2014 Overview (09/28/2016): Dyspnea Social History Tobacco Use Types Packs/Day Years Used Date Smoking Tobacco: Never Smokeless Tobacco: Never Tobacco Cessation:Counseling Given: Not Answered Alcohol Use Standard Drinks/Week Comments No 0 (1 standard drink = 0.6 oz pur e alcohol) Comments No Sex and Gender Information Value Date Recorded Sex Assigned at Not on file Legal Sex Female 2:37 PM CUPOLA MELTER Gender Identity Not on file Sexual Orientation Not on file Occupation Industry Job Start Date Job End Date Retired Not on file Not on file Not on file Last Filed Vital Signs Vital Sign Reading Time Taken Comments Blood Pressure 124/80 04/13/2023 4:00 PM CDT Pulse 68 05/24/2015 1:06 PM CUPOLA MELTER Temperature - - Respiratory Rate - - Oxygen Saturation 97% 05/24/2015 1:06 PM CUPOLA MELTER Inhaled Oxygen Concentration - - Weight 73.3 kg (161 lb 9.6 oz) 04/13/2023 4:00 P M CDT Height 165.1 cm (5' 5) 04/13/2023 4:00 PM CDT Body Mass Index 26.89 04/13/2023 4:00 PM CDT Plan of Treatment Not on file Procedures Procedure Name Priority Date/Time Associated Diagnosis [...] old F with given history of screening. Wheat Shipper/Model: Parametric Dining SL ([id number]/N [id number]) CLINICAL INFORMATION: Current height: 64 inches Maximum [...] Kamron Shaikh M.D. MF: VITOR Report ID: [id number] Reading Location: [id number] Procedure Note Kamron Shaikh MD - 01/24/2022 EXAM DESCRIPTION: DEXA AXIAL SKELETON BONE DENSITY 1 OR MORE SITES REASON FOR STUDY: 76 y/o year old F with given history ofscreening. Wheat Shipper/Model: Parametric Dining SL (S/N [id number]) CLINICAL INFORMATION: Current height: 64 inches Maximum [...] Kamron Shaikh M.D. MF: VITOR Report ID: [id number] Reading Location: [place] [address] Lizeth Rosario DO IMG DXA PROCEDURES Janelle l Result from Last 3 Months or Most Recently Relevant to Health Maintenance Insurance MEDICARE MEDICARE MEDICARE COMMERCIAL GENERIC Care Teams Custodian Supervisor Relationship Specialty Start Date End Date Wali Chowdhury MD [address] [address] PCP - General 12/01/14
--- NOTE | 2025-01-24 20:23 | ED_ITS ---
HPI - Fall General Chief Complaint: Fall Stated Complaint: fall Time Seen by Provider: 01/24/25 20:23 Source: patient and EMS Mode of arrival: EMS Limitations: no limitations History of Present Illness HPI Narrative: 79-year-old female with a history of hypertension, dyslipidemia, anxiety, diastolic dysfunction was carrying her granddaughter when she accidentally fell on her left side just befoe coming to the ER. She presents with -- left neck pain. she appears to have accidentally hit her neck on some object. No head injury. -- Left lower chest wall pain which is made worse by coughing and deep breathing. No other injuries noted. No loss of consciousness. No ENT bleeding. No focal neuro deficits noted. MD complaint: fall Onset (ago): hour(s) ( 1 hour ago) Fall from: standing Fall witnessed: no Place fall occurred: home Loss of consciousness: none Prolonged down time: no Symptoms prior to fall: none Context: tripped/slipped Location of injury: neck and chest Quality: aching Associated symptoms (after fall): neck pain and chest pain Related Data Home Medications ?Medication ?Instructions ?Recorded ?Confirmed ?Last Taken ?Type alprazolam 0.25 mg tablet 0.25 mg PO HS PRN Sleep 06/02/22 12/01/24 Unknown History mometasone 0.1 % topical solution 1 applic topical DAILY PRN Itching 06/02/22 12/01/24 Unknown History ascorbate calcium (vitamin C) 500 250 mg PO DAILY 07/31/22 12/01/24 Unknown History mg tablet cholecalciferol (vitamin D3) 10 10 mcg PO DAILY 07/31/22 12/01/24 Unknown History mcg (400 unit) capsule mecobalamin (vitamin B12) 500 mcg 500 mcg PO DAILY 07/31/22 12/01/24 Unknown History chewable tablet mometasone 50 mcg/actuation nasal 2 spray intranasal DAILY 07/31/22 12/01/24 Unknown History spray naproxen sodium 220 mg capsule 220 mg PO BID 07/31/22 12/01/24 Unknown History (Aleve) alendronate 70 mg tablet 70 mg PO WEEKLY 09/24/23 12/01/24 Unknown History venlafaxine 75 mg tablet,extended 75 mg PO DAILY 09/24/23 12/01/24 Unknown History release 24 hr cromolyn 100 mg/5 mL oral 100 mg PO QID 02/11/24 12/01/24 Unknown History concentrate furosemide 20 mg tablet 20 mg PO .prn 05/26/24 12/01/24 Unknown History pantoprazole 20 mg tablet,delayed 20 mg PO DAILY 05/26/24 12/01/24 Unknown History release atorvastatin 10 mg tablet 10 mg PO DAILY 12/01/24 12/01/24 Unknown History budesonide-formoterol HFA 160 inhalation 12/01/24 12/01/24 Unknown History mcg-4.5 mcg/actuation aerosol inhaler ondansetron HCl 4 mg tablet 4 mg PO DAILY 12/01/24 12/01/24 Unknown History Allergies Allergy/AdvReac Type Severity Reaction Status Date / Time adhesive tape Allergy Intermediate Rash Verified 01/24/25 20:24 gluten Allergy Mild Gastrointestinal Verified 01/24/25 20:24 Upset codeine Allergy Vomiting Verified 01/24/25 20:24 grape Allergy Unknown Verified 01/24/25 20:24 hydrocodone AdvReac Mild Dizziness Verified 01/24/25 20:24 Review of Systems 2 Review of Systems: All systems reviewed & are unremarkable except as noted in HPI and below Constitutional: Constitutional: Reports as per HPI and Reports no additional constitutional complaints Eyes: Eyes: Reports as per HPI and Reports no additional eye complaints ENT: Reports system reviewed and no additional complaints, except as documented and Reports as per HPI Cardiovascular: Cardiovascular: Reports as per HPI and Reports no additional cardiovascular complaints Respiratory: Respiratory: Reports as per HPI and Reports no additional respiratory complaints Comments: left lower chest wall pain Gastrointestinal: Gastrointestinal: Reports as per HPI and Reports no additional gastrointestinal complaints Comments: abdominal pain Genitourinary: Genitourinary: Reports no additional female genitourinary complaints and Reports as per HPI Musculoskeletal: Musculoskeletal: Reports no additional musculoskeletal complaints and Reports as per HPI Integumentary/Breasts: Skin/Breast: Reports system reviewed and no additional complaints, except as docu and Reports as per HPI Neurologic: Reports system reviewed and no additional complaints, except as documented and Reports as per HPI Psychiatric: Psychiatric: Reports no additional psychiatric complaints and Reports as per HPI Endocrine: Endocrine: Reports no additional endocrine complaints and Reports as per HPI Hematologic/Lymphatic: Hematologic/Lymphatic: Reports no additional hematologic/lymphatic complaints and Reports as per HPI Allergic/Immunologic: Allergic/Immunologic: Reports no additional allergic/immunologic complaints and Reports as per HPI PMFSH Past Medical History Medical History Bilateral leg edema Hypokalemia Hyperglycemia Lesion of right [place] ureter Lesion of spleen Vitamin D deficiency Overweight Fatigue Lung nodule Social History Social History Smoking status: Never smoker Second hand tobacco smoke exposure: Yes Alcohol intake: never Substance use: never Substance use type: does not use Lack of Transportation: No Lack of Food: Never True Current Housing: I Have Housing Concerned About Future Housing: No Difficulty Paying Gas/Electric Bills: No Difficulty Paying for Meds: No Currently Unemployed: No Education: High School Diploma/GED Difficulty w/ Childcare or Family Care: No Living arrangements: alone Occupation/Education: retired Gender identity (if verbalized by the patient): Female Sexual Orientation (if Verbalized by the Patient): Straight or Heterosexual Spiritual care concerns: No Agree to blood products: Yes Exam 2 Narrative: Blood pressure is 175/71. Const: General: ill appearing Orientation/consciousness: patient oriented x3 Limitations: no limitations HENMT: Head: normal to inspection Ears: external ears normal, TM's normal bilaterally and EAC's normal Face/Nose/Sinus: Normal external nose present Face and sinus: normal facial exam Mouth: Yes Normal oral and palatal mucosa present Throat: posterior oropharynx normal Eyes: Conjunctivae: conjunctivae normal Pupils: Equal, round and reactive pupils present EOM: EOMs intact bilaterally Direct Ophthalmoscopy: no photophobia Neck: Other: C-collar in place. Chest: Chest palpation & inspection: normal inspection of the chest Resp: Effort & Inspection: normal respiratory effort Auscultation: clear to auscultation bilaterally Other: Tenderness of the left lower ribs anteriorly and laterally. No bruising noted. Cardio: Rate: regular rate Rhythm: regular rhythm GI: Auscultation: normal bowel sounds Other: No tenderness/ rigidity /rebound. : General: Yes no CVA tenderness Back/Spine/Pelvis: Back: no CVA tenderness Skin: General skin exam: normal color Rashes: no rashes Wounds: no wounds Neuro: General: patient oriented x3, moves all extremities, no meningeal signs, no focal motor deficits and CN's II-XI intact bilaterally Cranial nerves: Yes Nystagmus not present Speech: normal speech Gait exam (Neuro): Normal gait present Extrem: General: normal to inspection and no clubbing, cyanosis or edema Psych: Mental Status: mental status grossly normal Affect: normal affect Attitude: cooperative Course Course Emergency Course: accidental fall with left chest pain-- CT of the chest revealed fracture of the 8,9,10 th rib. No pleural collection noted. She has old compression fracture of T7/8 and burst fracture of T11. right renal exophytic lesion. 9.30 PM-- patient has severe pain. She lives at home by herself. Will admit the patient for observation. Vital Signs Vital signs: Vital Signs Temperature 35.9 C L 01/24/25 20:09 Pulse Rate 70 01/24/25 20:09 Respiratory Rate 16 01/24/25 20:09 Blood Pressure 175/71 H 01/24/25 20:09 Pulse Oximetry 100 01/24/25 20:09 Oxygen Delivery Room Air 01/24/25 20:09 Temperature 35.9 C L 01/24/25 20:09 Pulse Rate 70 01/24/25 20:09 Respiratory Rate 16 01/24/25 20:09 Blood Pressure 175/71 H 01/24/25 20:09 Pulse Oximetry 100 01/24/25 20:09 Oxygen Delivery Room Air 01/24/25 20:09 MDM - Fall MDM Narrative Medical decision making narrative: Accidental fall left 8,9,10 rib fracture which is acute Differential Diagnosis Differential diagnosis: Likely other ( chest trauma.) Medical Records Attestation: I reviewed the patient's medical records. Lab Data Attestation: I reviewed the patient's lab results. 01/24/25 21:52 01/24/25 21:52 Labs: Lab Results 01/24/25 Range/Units 21:52 WBC 5.8 (4.8-10.8) K/mm3 RBC 4.52 (4.20-5.40) M/mm3 Hgb 13.7 (11.7-13.8) g/dL Hct 39.5 (35.0-42.0) % MCV 87.4 (78.0-102.0) fL MCH 30.3 (27.0-31.0) pg MCHC 34.7 (32-36) g/dL RDW 12.2 (11.6-14.4) % Plt Count 263 (150-420) K/mm3 MPV 9.3 (9.2-11.8) fl Immature Gran % (Auto) 0.3 H (0.0-0.0) % Neut % (Auto) 68.9 (50.0-70.0) % Lymph % (Auto) 18.8 (18.0-42.0) % [place] % (Auto) 7.6 (2.0-11.0) % Eos % (Auto) 3.0 (1.0-6.0) % Baso % (Auto) 1.4 H (0.0-1.0) % Lymph # (Auto) 1.08 L (1.10-4.50) K/mm3 [place] # (Auto) 0.44 (0.10-0.90) K/mm3 Eos # (Auto) 0.17 (0.02-0.50) K/mm3 Baso # (Auto) 0.08 (0.00-0.10) K/mm3 Abs Immat Gran (auto) 0.02 H (0.00-0.00) K/mm3 Absolute Neuts (auto) 3.97 (1.70-7.20) K/mm3 Absolute Nucleated RBC 0.00 (0.00-0.00) K/mm3 Nucleated RBC % 0.0 (0-0.0) % Sodium 136 L (137-145) mmol/L Potassium 3.8 (3.4-5.0) mmol/L Chloride 103 (98-107) mmol/L Carbon Dioxide 27 (22-30) mmol/L Anion Gap 6 (4-12) mmol/L BUN 19 H (7-17) mg/dL Creatinine 0.71 (0.7-1.0) mg/dL Estim Creat Clear Calc 49 ml/min Estimated GFR > 60 (59 - ) Glucose 108 (65-110) mg/dL Calculated Osmolality 285 (285-295) mOsm/kg Lactic Acid 1.0 (0.4-2.0) mmol/L Calcium 8.7 (8.4-10.2) mg/dL Total Bilirubin 0.8 (0.2-1.3) mg/dL AST 28 (14-36) U/L ALT 21 (6-35) U/L Alkaline Phosphatase 67 (38-126) U/L Troponin I < 0.012 (0.000-0.034) ng/mL NT-Pro-B Natriuret Pep 276 H (19.9-100) pg/mL Total Protein 6.8 (6.3-8.2) g/dL Albumin 4.3 (3.5-5.1) g/dL ECG Data EKG #1: ECG completion date: 01/24/25 ECG completion time: 20:24 Interpretation: normal sinus rhythm first-degree AV block. Left axis deviation. Incomplete right bundle-branch block pattern. No ST elevation. Discharge Plan Discharge Clinical Impression: Accidental fall Qualifiers: Encounter type: initial encounter Qualified Code(s): W19.XXXA - Unspecified fall, initial encounter Multiple rib fractures Qualifiers: Encounter type: initial encounter Fracture type: closed Laterality: left Q ualified Code(s): S22.42XA - Multiple fractures of ribs, left side, initial encounter for closed fracture Patient Disposition: Acute Care [facility] Condition: Stable Patient Language: [place] Citizen Prescriptions: No Action alprazolam 0.25 mg Tablet 0.25 mg PO HS PRN (Reason: Sleep) mometasone 0.1 % Solution 1 applic TOPICAL DAILY PRN (Reason: Itching) Rx Instructions: Apply for scalp itching amlodipine [Norvasc] 5 mg Tablet 5 mg PO QAM Qty: 30 0RF benzonatate 100 mg Capsule 100 mg PO TID PRN (Reason: Cough) 30 Days Qty: 30 0RF cromolyn 100 mg/5 mL Concentrate 100 mg PO QID Rx Instructions: before meals and at bedtime alendronate 70 mg tablet 70 mg PO WEEKLY venlafaxine 75 mg tablet extended release 24hr 75 mg PO DAILY pantoprazole 20 mg tablet,delayed release (DR/EC) 20 mg PO DAILY furosemide 20 mg tablet 20 mg PO .prn Rx Instructions: 20 mg orally; budesonide-formoterol 160-4.5 mcg/actuation HFA aerosol inhaler inhalation ondansetron HCl 4 mg tablet 4 mg PO DAILY atorvastatin 10 mg tablet 10 mg PO DAILY naproxen sodium [Aleve] 220 mg capsule 220 mg PO BID mometasone 50 mcg/actuation spray,non-aerosol 2 spray intranasal DAILY Rx Instructions: administer into each nostril ascorbate calcium (vitamin C) 500 mg tablet 250 mg PO DAILY cholecalciferol (vitamin D3) 10 mcg (400 unit) capsule 10 mcg PO DAILY mecobalamin (vitamin B12) 500 mcg tablet,chewable 500 mcg PO DAILY Follow-up/Referrals: UNKNOWN,DOCTOR [Non-Staff] - Time of Disposition: 22:48
[2025-01-24] MEDS: KETOROLAC 15 MG/ML VIAL (*BKC) IV PUSH (20:37)
--- OUTSIDE RECORDS SUMMARY | 2025-01-24 20:46 | XMS_ITS | Encounter Summary ---
Author Organization [facility] Address [address] [place] [address] Phone Care Team Providers Care Cylinder Machine Operator Pulp Drier Name Role Phone Wali Chowdhury MD Primary Care Provider +1 [phone] Rosy Llamas APN, DATA EXAMINATION CLERK Unavailable Christi Rg MD Unavailable Reason for Visit * Reason Comments Medication Refill Encounter Details Date Type Department Care Team (Late st Contact Info) Description 04/22/2021 Refill [facility] - [place] [address]2 [place] [phone] Marty Hoover, INDUSTRIAL WASTE INSPECTOR, DATA EXAMINATION CLERK #[address] [address] Medication Refill Social History Tobacco Use Types [...] CDT Gender Identity Female 05/07/2023 8:21 PM BLURB WRITER Sexual Orientation Not on file COVID-19 Exposure [...] [facility] - [place] #[address] [place] [address] Marty Hoover APRN, DATA EXAMINATION CLERK #[address] [address] documented as of this encounter Visit Diagnoses Diagnosis Anxiety Anxiety state, unspecified documented in this encounter Additional Health Concerns Infection Onset Date Last Indicated Resolved Time COVID - 19 05/29/2022 05/29/2022 05/31/2022 8:12 AM BLURB WRITER Respiratory Rule-Out 05/29/2022 05/29/2022 022 2:50 PM BLURB WRITER Respiratory Rule Out - RPA 05/30/2022 05/30/2022 1 08/01/2021 3:50 PM BLURB WRITER COVID - 19 01/24/2024 01/24/2024 01/24/2024 10:2 8 AM CDT COVID - 19 02/25/2024 02/25/2024 02/25/2024 7:42 PM CDT Respiratory Rule-Out 08/13/2024 08/13/2024 025 7:04 PM BLURB WRITER COVID - 19 09/10/2024 09/10/2024 09/10/2024 2:03 PM CDT Respiratory Rule-Out 09/10/2024 09/10/2024 025 2:02 PM CDT Assessment Noted Time PHQ-9 Depression Total Score: 1 09/17/19 21 1:27 PM CDT documented as of this encounter Care Teams Cylinder Machine Operator Pulp Drier Relationship Specialty Start Date End Date Wali Chowdhury MD #[address] [facility] [address] [place] [address] PCP - General Family Medicine 05/10/15 Rosy Llamas, FILLER MIXER, DATA EXAMINATION CLERK #[address] [facility] [address] [place] [address] Nurse Practitioner Advanced Practice Nurse 12/24/15 Christi Rg MD [address] [place] [address] Consulting Physician Obstetrics & Gynecology 11/26/18 documented as of this encounter
--- OUTSIDE RECORDS SUMMARY | 2025-01-24 20:46 | XMS_ITS | Clinical Summary ---
Author Organization [facility] Address [address] [facility] [place] [address] Care Team Providers Care Naval Special Warfare Medic Name Role Phone Unavailable Primary Care Provider Unavailabl e Source Comments [facility],non-owned Affiliates and Associated Physician Practices is amultiple site organization consisting of ambulatory clinics and hospital sitesin [place], [place], [place] and [place]. This disclosure is being madepursuant to the Care Everywhere program and may not contain all information available regarding this patient. Last updated 18.[facility] [employer] Social History Tobacco Use Types Packs/Day Years [...] patient's age to complete this topic Insurance [facility] FINANCIAL FOR [facility] MEDICARE [facility] H & W
--- OUTSIDE RECORDS SUMMARY | 2025-01-24 20:46 | XMS_ITS | Encounter Summary ---
Author Organization [facility] Address [address] [place] [address] Care Team Providers Care Loading Rack Supervisor Name Role Phone Unavailable Primary Care Provider Unavailsamantha e Encounter Details Date Type Department Care Team (Late st Contact Info) Description 12/13/2022 Lab Requisition [facility] - DermPath Lab [address] [place] [address] Daija Maria MD [address] [place], [place] [id number] Dermatitis, unspecified Social History Tobacco Use Types [...] AM CDT) Case Report Dermatopathology Report Case: [id number] Authorizing Provider: Daija Maria MD Collected: 12/13/2022 12:00 AM Ordering Location: [facility] DermPath Lab Received: 12/14/2022 06:08 AM Pathologist: Ann Almazan MD Specimen: Skin, left superior upper back 3:59 PM CDT DERMATOPATHOLOGY LABORATORY Final Diagnosis Specimen A. SKIN, left superior upper back: SUPERFICIAL PERIVASCULAR LYMPHOCYTIC INFILTRATE WITH EOSINOPHILS (L27.0) (see microscopic description and comment) (see direct immunofluorescence results [id number] ) 3 3:59 PM CDT DERMATOPATHOLOGY LABORATORY [...] characteristic determined by the Dermatopathology Laboratory at [facility], directed by Dr. Garrett Almazan. These tests need not be, and therefore are not, approved by the [place] Food and Drug Administration. The tests are used for clinical purposes. Billing Codes Specimen Charges Stain Charges 00838 1 3 3:59 PM CDT DERMATOPATHOLOGY LABORATORY Embedded Images 3 3:59 PM CDT DERMATOPATHOLOGY LABORATORY Pathology/Cytolog y TISSUE SPECIMEN FROM SKIN / Unknown 12/13/2022 12/14/2022 6:08 AM CDT Daija Maria MD LAB - PATHOLOGY/CYTOLOGY ESTHER DAVISON Final Result DERMATOPATHOLOGY LABORATORY [facility] - Department of Dermatology [address], [address] Floor [address] [phone] documented in this encounter Visit Diagnoses Diagnosis Dermatitis, unspecified documented in this encounter
--- OUTSIDE RECORDS SUMMARY | 2025-01-24 20:46 | XMS_ITS | Encounter Summary ---
Author Organization [facility] Address [address] [place] [address] Phone Care Team Providers Care Bliss Press Operator Name Role Phone Wali Chowdhury MD Primary Care Provider [phone] [phone] Rosy Llamas APN, ASSEMBLER ERECTOR Unavailable Christi Rg MD Unavailable Reason for Visit * Reason Comments Medication Refill Encounter Details Date Type Department Care Team (Late st Contact Info) Description 11/16/2023 Refill [facility] - [place] [address] [place] [phone] Marty Hoover, STONE POLISHER, ASSEMBLER ERECTOR #[address] [address] Medication Refill Social History Tobacco Use Types Packs/Day Years Used Date Smoking Tobacco: Never Smokeless Tobacco: Never Alcohol Use Standard Drinks/Week Comments No 0 (1 standard drink = 0.6 oz pur e alcohol) [facility] Utilities Answer Date Recorded In the past 12 months has [employer], gas, oil, or water company threatened to [...] often do you attend chur ch or spiritism services? More than 4 times per year 09/17/2023 Do you belong to any clubs o r organizations such as adventist groups, unions, fraternal or athletic groups, or [...] Total Score - Questions 1-9 0 10/24 [facility] of Occupat ional [facility] - Occupational Stress Questionnaire Answer Date [...] place to sleep or slept in a longterm (including now)? No 09/17/2023 Education Answer Date Recorded What is the highest level of school you have completed or the highest degree you have received? 12th grade 06/20/2022 Sexually Active Control Partners Comments Never Comments No Sex and Gender Information Value Date Recorded Sex Assigned at Not on file Legal Sex Female 11:45 PM CDT Gender Identity Female 05/07/2023 8:21 PM BIOMETRIC TECHNICIAN Sexual Orientation Not on file documented as of this encounter Miscellaneous Notes * Telephone Encounter - Linda Xiong RN - 11/16/2023 11:56 AM CDT Images from the original note were not included. amLODIPine Besylate Dispensed Days Supply Quantity Provider Pharmacy AMLODIPINE BESYLATE 5 MG TABS 11/12/2023 90 90 Tablet Wali Chowdhury MD [facility] #... AMLODIPINE BESYLATE 5MG TABLETS 08/19/2023 90 90 Each Marty Hoover APRN, CNP [facility] #... documented in this encounter Plan of Treatment Upcoming Encounters Date Type Department Care Team (Late st Contact Info) Description 02/03/2025 10:30 AM CDT Office Visit [facility] #[address] [place] [address] Marty Hoover APRN, [place] #[address] [address] documented as of this encounter Visit Diagnoses Diagnosis Chronic heart failure with preserved ejection fraction (HCC) documented in this encounter Additional Health Concerns Infection Onset Date Last Indicated Resolved Time COVID - 19 01/24/2024 01/24/2024 01/24/2024 10:2 8 AM CDT COVID - 02/25/2024 02/25/2024 02/25/2024 7:42 PM CDT Respiratory Rule-Out 08/13/2024 08/13/2024 025 7:04 PM BIOMETRIC TECHNICIAN COVID - 09/10/2024 09/10/2024 09/10/2024 2:03 PM CDT Respiratory Rule-Out 09/10/2024 09/10/2024 025 2:02 PM CDT Assessment Noted Time PHQ-9 Depression Total Score: 1 09/17/19 21 1:27 PM CDT documented as of this encounter Care Teams Bliss Press Operator Relationship Specialty Start Date End Date Wali Chowdhury MD #[address] [facility] [address] [place] [address] PCP - General Family Medicine 05/10/15 Rosy Llamas, CARPENTER HELPER MAINTENANCE, ASSEMBLER ERECTOR #2 [facility] [address] [place] [address] Nurse Practitioner Advanced Practice Nurse 12/24/15 Christi Rg MD [address] [place] [address] Consulting Physician Obstetrics & Gynecology 11/26/18 documented as of this encounter
--- OUTSIDE RECORDS SUMMARY | 2025-01-24 20:46 | XMS_ITS | Referral Summary ---
Author Organization [facility] [address] Address [address] [place] [address] Phone Care Team Providers Care Senior Linux Engineer Name Role Phone Wali Chowdhury MD Primary Care Provider [phone] [phone] Encounters Date Type Department Care Team Description 01/15/2025 Orders Only [facility] [address] [place] [address] Lizeth Rosario DO Screening mammogram [...] on file Legal Sex Female 2:37 PM SENIOR ELECTRICAL ENGINEER Gender Identity Not on file Sexual Orientation Not on file Occupation Industry Job Start Date Job End Date Retired Not on file Not on file Not on file Last Filed Vital Signs Vital Sign Reading Time Taken Comments Blood Pressure 124/80 04/13/2023 4:00 PM CDT Pulse 68 05/24/2015 1:06 PM SENIOR ELECTRICAL ENGINEER Temperature - - Respiratory Rate - - Oxygen Saturation 97% 05/24/2015 1:06 PM SENIOR ELECTRICAL ENGINEER Inhaled Oxygen Concentration - - Weight 73.3 [...] old F with given history of screening. Secretary Book Keeper/Model: [employer] SL (S/N [id number]) CLINICAL INFORMATION: Current height: 64 inches Maximum [...] Kamron Shaikh M.D. MF: VITOR Report ID: [id number] Reading Location: [id number] Procedure Note Kamron Shaikh MD - 01/24/2022 EXAM DESCRIPTION: DEXA AXIAL SKELETON BONE DENSITY 1 OR MORE SITES REASON FOR STUDY: 76 y/o year old F with given history ofscreening. Secretary Book Keeper/Model: [employer] SL (S/N [id number]) CLINICAL INFORMATION: Current height: 64 inches Maximum [...] Kamron Shaikh M.D. MF: VITOR Report ID: [id number] Reading Location: [place] [address] Lizeth Rosario DO IMG DXA PROCEDURES Janelle l Result from Last 3 Months or Most Recently Relevant to Health Maintenance Insurance MEDICARE MEDICARE MEDICARE COMMERCIAL GENERIC Care Teams Senior Linux Engineer Relationship Specialty Start Date End Date Wali Chowdhury MD [address] [address] PCP - General 12/01/14
--- OUTSIDE RECORDS SUMMARY | 2025-01-24 20:46 | XMS_ITS | Clinical Summary ---
Author Organization [facility] [address] Address [address] [place] [address] Phone Care Team Providers Care Screw Cutter Name Role Phone Wali Chowdhury MD Primary Care Provider [phone] [phone] Allergies Active Allergy Reactions Criticality Noted Date [...] Department Care Team Description 01/15/2025 Orders Only [facility] [address] [place] [address] Lizeth Rosario, Screening mammogram for [...] on file Legal Sex Female 2:37 PM LIBRARIAN SPECIALIST Gender Identity Not on file Sexual Orientation [...] PM CDT Pulse 68 05/24/2015 1:06 PM LIBRARIAN SPECIALIST Temperature - - Respiratory Rate - - Oxygen Saturation 97% 05/24/2015 1:06 PM LIBRARIAN SPECIALIST Inhaled Oxygen Concentration - - Weight 73.3 [...] old F with given history of screening. Cardiovascular Tech/Model: [employer] (S/N [id number]) CLINICAL INFORMATION: Current height: 64 inches Maximum [...] 01/24/2022 8:51 AM - Electronically signed by Kamrno Shaikh M.D. MF: VITOR Report ID: [id number] Reading Location: [id number] Procedure Note Kamron Shaikh MD - 01/24/2022 EXAM DESCRIPTION: DEXA AXIAL SKELETON BONE DENSITY 1 OR MORE SITES REASON FOR STUDY: 76 y/o year old F with given history ofscreening. Cardiovascular Tech/Model: [employer] SL (S/N [id number]) CLINICAL INFORMATION: Current height: 64 inches Maximum [...] Kamron Shaikh M.D. MF: VITOR Report ID: [id number] Reading Location: [place] [address] Lizeth Rosario DO IMG DXA PROCEDURES Janelle l Result from Last 3 Months or Most Recently Relevant to Health Maintenance Insurance MEDICARE MEDICARE MEDICARE COMMERCIAL GENERIC Care Teams Screw Cutter Relationship Specialty Start Date End Date aWli Chowdhury MD 2 [facility] [address] PCP - General 12/01/14
--- OUTSIDE RECORDS SUMMARY | 2025-01-24 20:46 | XMS_ITS | Encounter Summary ---
Author Organization [facility] Address [address] [place] [address] Phone Care Team Providers Care Supervisor Keymodule Assembly Name Role Phone Wali Chowdhury MD Primary Care Provider [phone] [phone] Rosy Llamas APN, [facility] Unavailable Christi Rg MD Unavailable Reason for Visit * Reason Comments Medication Refill Encounter Details Date Type Department Care Team (Late st Contact Info) Description 09/26/2023 Refill [facility] - [facility] #2 [place] [address] Wali Chowdhury MD #[address] [address] Medication Refill Social History Tobacco Use Types Packs/Day Years Used Date Smoking Tobacco: Never Smokeless Tobacco: Never Alcohol Use Standard Drinks/Week Comments No 0 (1 standard drink = 0.6 oz pur e alcohol) [facility] Utilities Answer Date Recorded In the past 12 months has [employer], gas, oil, or water company threatened to [...] often do you attend chur ch or rastafarian services? More than 4 times per year 09/17/2023 Do you belong to any clubs o r organizations such as bahai groups, unions, fraternal or athletic groups, or [...] Score - Questions 1-9 0 04/0 10/2021 [facility] of Occupat ional [facility] - Occupational Stress Questionnaire Answer Date Recorded [...] place to sleep or slept in a custodial (including now)? No 09/17/2023 Education Answer Date Recorded What is the highest level of school you have completed or the highest degree you have received? 12th grade 06/20/2022 Sexually Active Control Partners Comments Never Comments No Sex and Gender Information Value Date Recorded Sex Assigned at Not on file Legal Sex Female 11:45 PM CDT Gender Identity Female 05/07/2023 8:21 PM CORPORATE SECURITY MANAGER Sexual Orientation Not on file documented [...] 09/17/23 Office Visit [facility]/28[facility]23 Office Visit Marty Hoover APRN, CNP [facility] Showing recent visits within past 365 days [...] Description 02/03/2025 10:30 AM CDT Office Visit [facility] - Family Medicine [facility] #[address] [place] [address] Marty Hoover APRN, [place] #[address] [address] documented as of this encounter Visit Diagnoses Diagnosis Chronic heart failure with preserved ejection fraction (HCC) documented in this encounter Additional Health Concerns Infection Onset Date Last Indicated Resolved Time COVID - 19 01/24/2024 01/24/2024 01/24/2024 10:2 8 AM CDT COVID - 19 02/25/2024 02/25/2024 02/25/2024 7:42 PM CDT Respiratory Rule-Out 08/13/2024 08/13/2024 025 7:04 PM CORPORATE SECURITY MANAGER COVID - 19 09/10/2024 09/10/2024 09/10/2024 2:03 PM CDT Respiratory Rule-Out 09/10/2024 09/10/2024 025 2:02 PM CDT Assessment Noted Time PHQ-9 Depression Total Score: 1 09/17/19 21 1:27 PM CDT documented as of this encounter Care Teams Supervisor Keymodule Assembly Relationship Specialty Start Date End Date Wali Chowdhury MD #[address] [address] PCP - General Family Medicine 05/10/15 Rosy Llamas APN, KNITTING DEMONSTRATOR #[address] [address] Nurse Practitioner Advanced Practice Nurse 12/24/15 Christi Rg MD [address] [address] Consulting Physician Obstetrics & Gynecology 11/26/18 documented as of this encounter
--- OUTSIDE RECORDS SUMMARY | 2025-01-24 20:46 | XMS_ITS | Encounter Summary ---
Author Organization [facility] Address [address] [place] [address] Phone Care Team Providers Care Customer Support Coordinator Name Role Phone Wali Chowdhury MD Primary Care Provider [phone] [phone] Rosy Llamas APN, TOUR COORDINATOR Unavailable Christi Rg MD Unavailable Reason for Visit * Reason Comments Medication Refill Encounter Details Date Type Department Care Team (Late st Contact Info) Description 04/19/2023 Refill [facility] - Family Medicine - [place] #2 [place] [phone] Marty Hoover, CHIEF STATION ENGINEER, TOUR COORDINATOR #[address] [address] Medication Refill Social History Tobacco Use Types [...] CDT Gender Identity Female 05/07/2023 8:21 PM MORTAR WORKER Sexual Orientation Not on file documented as [...] 06/21/22 Office Visit Marty Hoover APRN, CNP [facility] Showing recent visits within past 365 days and meeting all other requirements Future Appointments No visits were found meeting these conditions. Showing future appointments within next 90 days and meeting all other requirements documented in this encounter Plan of Treatment Upcoming Encounters Date Type Department Care Team (Late st Contact Info) Description 02/03/2025 10:30 AM CDT Office Visit [facility] - Family Medicine - [place] #2 [place] [address] Marty Hoover APRN, [place] #[address] [address] documented as of this encounter Visit Diagnoses Diagnosis Anxiety Anxiety state, unspecified documented in this encounter Additional Health Concerns Infection Onset Date Last Indicated Resolved Time COVID - 19 01/24/2024 01/24/2024 01/24/2024 10:2 8 AM CDT COVID - 19 02/25/2024 02/25/2024 02/25/2024 7:42 PM CDT Respiratory Rule-Out 08/13/2024 08/13/2024 025 7:04 PM MORTAR WORKER COVID - 19 09/10/2024 09/10/2024 09/10/2024 2:03 PM CDT Respiratory Rule-Out 09/10/2024 09/10/2024 025 2:02 PM CDT Assessment Noted Time PHQ-9 Depression Total Score: 1 09/17/19 21 1:27 PM CDT documented as of this encounter Care Teams Customer Support Coordinator Relationship Specialty Start Date End Date Wali Chowdhury MD #[address] [address] PCP - General Family Medicine 05/10/15 Rosy Llamas, TEMPERING OVEN OPERATOR, TOUR COORDINATOR #[address] [address] Nurse Practitioner Advanced Practice Nurse 12/24/15 Christi Rg MD [address] [place], [place] [address] [address] Consulting Physician Obstetrics & Gynecology 11/26/18 documented as of this encounter
--- OUTSIDE RECORDS SUMMARY | 2025-01-24 20:46 | XMS_ITS | Encounter Summary ---
Author Organization [facility] Address [address] [place] [address] Phone Care Team Providers Care Credit Manager Name Role Phone Wali Chowdhury MD Primary Care Provider [phone] [phone] Rosy Llamas APN, FLOOR ASSEMBLER Unavailable Christi Rg MD Unavailable Reason for Visit * Reason Comments Medication Refill Encounter Details Date Type Department Care Team (Late st Contact Info) Description 01/30/2022 [facility]ill [facility] [place] [address] Wali Chowdhury MD #[address] [address] Medication Refill Social History Tobacco Use Types [...] CDT Gender Identity Female 05/07/2023 8:21 PM HEMP FIBER TAKER OFF Sexual Orientation Not on file documented as [...] Dept 12/27/21 Office Visit Wali Chowdhury MD [facility] [place] 09/27/21 Office Visit [facility] 06/28[facility]21 [facility]icine Rebeca Grimm PAC [facility] 03/29/21 Office Visit Marty Hoover APRN, [place] [facility] 02/03/21 Office Visit Wali Chowdhury MD [facility] Showing recent visits within past 365 days and meeting all other requirements Future Appointments Date Type Provider Dept 04/04/22 Appointment Wali Chowdhury MD [facility] [place] Showing future appointments within next 90 days and meeting all other requirements documented in this encounter Plan of Treatment Upcoming Encounters Date Type Department Care Team (Late st Contact Info) Description 02/03/2025 10:30 AM CDT Office Visit [facility] - Family Medicine - [place] [address] [place] [address] Marty Hoover APRN, FLOOR ASSEMBLER [address] [address] documented as of this encounter Visit Diagnoses Diagnosis Anxiety Anxiety state, unspecified documented in this encounter Additional Health Concerns Infection Onset Date Last Indicated Resolved Time COVID - 19 05/29/2022 05/29/2022 05/31/2022 8:12 AM HEMP FIBER TAKER OFF Respiratory Rule-Out 05/29/2022 05/29/2022 022 2:50 PM HEMP FIBER TAKER OFF Respiratory Rule Out - RPA 05/30/2022 05/30/2022 1 08/01/2021 3:50 PM HEMP FIBER TAKER OFF COVID - 19 01/24/2024 01/24/2024 01/24/2024 10:2 8 AM CDT COVID - 19 02/25/2024 02/25/2024 02/25/2024 7:42 PM CDT Respiratory Rule-Out 08/13/2024 08/13/2024 025 7:04 PM HEMP FIBER TAKER OFF COVID - 19 09/10/2024 09/10/2024 09/10/2024 2:03 PM CDT Respiratory Rule-Out 09/10/2024 09/10/2024 025 2:02 PM CDT Assessment Noted Time PHQ-9 Depression Total Score: 1 09/17/19 21 1:27 PM CDT documented as of this encounter Care Teams Credit Manager Relationship Specialty Start Date End Date Wali Chowdhury MD #[address] [place] [place] [address] PCP - General Family Medicine 05/10/15 Rosy Llamas, UX DESIGNER, FLOOR ASSEMBLER #[address] [place] [place] [address] Nurse Practitioner Advanced Practice Nurse 12/24/15 Christi Rg MD [address] [place] [address] Consulting Physician Obstetrics & Gynecology 11/26/18 documented as of this encounter
--- OUTSIDE RECORDS SUMMARY | 2025-01-24 20:46 | XMS_ITS | Encounter Summary ---
Author Organization [facility] Address [address] [place] [address] Phone Care Team Providers Care Cloth Shearing Supervisor Name Role Phone Wali Chowdhury MD Primary Care Provider [phone] Rosy Llamas APN, BLASTING HELPER Unavailable Christi Rg MD Unavailable Reason for Visit * Reason Comments Medication Refill Encounter Details Date Type Department Care Team (Late st Contact Info) Description 08/12/2020 Refill [facility] - [place] [address] [place] [id number] Marty Hoover, SALES CONTRACT ADMINISTRATOR, BLASTING HELPER [address] [address] Medication Refill Social History Tobacco Use Types [...] CDT Gender Identity Female 05/07/2023 8:21 PM AUTOMATIC NAILING MACHINE OPERATOR Sexual Orientation Not on file documented as of this encounter Miscellaneous Notes * Telephone Encounter - Marty Hoover APN, CNP - 08/13/2020 8:33 AM CST PDMP reviewed MATIC NAILING MACHINE OPERATOR * Telephone Encounter - Laurita Nunez RN [...] 1 month ago Hyperlipidemia, unspecified hyperlipidemia type [facility] Marty Madrigal APN, CNP 1 year ago Strain of thoracic back region [facility] Marty Madrigal APN, CNP 1 year ago Chronically on benzodiazepine therapy [facility] Wali Rangel MD 2 years ago Renal mass [facility] Marty Madrigal APN, CNP 2 years ago Overweight (BMI 25.0-29.9) [facility] Wali Rangel MD Upcoming Appointments Future Appointments In 1 month Clinic, [facility] Nurse [facility] JODIE Miguel In 4 months Wali Chowdhury MD [facility]S LAB[facility] - Recent and Past Visits Recent Visits Date Type Provider Dept 07/09/20 Office Visit Marty Hoover APN, CNP [facility] [place] Showing recent visits within past 460 days with a meds authorizing provider and meeting all other requirements Future Appointments No visits were found meeting these conditions. Showing future appointments within next 90 days with a meds authorizing provider and meeting all other requirements MATIC NAILING MACHINE OPERATOR documented in this encounter Plan of Treatment Upcoming Encounters Date Type Department Care Team (Late st Contact Info) Description 02/03/2025 10:30 AM CDT [facility] Visit [facility] [address]2 [place] [address] Marty Hoover APRN, BLASTING HELPER #[address] [address] documented as of this encounter Visit Diagnoses Diagnosis Anxiety Anxiety state, unspecified documented in this encounter Additional Health Concerns Infection Onset Date Last Indicated Resolved Time COVID - 19 09/16/2020 09/16/2020 09/18/2020 6:37 AM CDT COVID - 19 05/29/2022 05/29/2022 05/31/2022 8:12 AM AUTOMATIC NAILING MACHINE OPERATOR Respiratory Rule-Out 05/29/2022 05/29/2022 022 2:50 PM AUTOMATIC NAILING MACHINE OPERATOR Respiratory Rule Out - RPA 05/30/2022 05/30/2022 1 08/01/2021 3:50 PM AUTOMATIC NAILING MACHINE OPERATOR COVID - 19 01/24/2024 01/24/2024 01/24/2024 10:2 8 AM CDT COVID - 19 02/25/2024 02/25/2024 02/25/2024 7:42 PM CDT Respiratory Rule-Out 08/13/2024 08/13/2024 025 7:04 PM AUTOMATIC NAILING MACHINE OPERATOR COVID - 19 09/10/2024 09/10/2024 09/10/2024 2:03 PM CDT Respiratory Rule-Out 09/10/2024 09/10/2024 025 2:02 PM CDT Assessment Noted Time PHQ-9 Depression Total Score: 0 11/08/19 11:11 AM CDT documented as of this encounter Care Teams Cloth Shearing Supervisor Relationship Specialty Start Date End Date Wali Chowdhury MD #[address] [address] PCP - General Family Medicine 05/10/15 Rosy Llamas APN, BLASTING HELPER [address] [place] [address] Nurse Practitioner Advanced Practice Nurse 12/24/15 Christi Rg MD [address] [place] [address] Consulting Physician Obstetrics & Gynecology 11/26/18 documented as of this encounter
--- OUTSIDE RECORDS SUMMARY | 2025-01-24 20:46 | XMS_ITS | Encounter Summary ---
Author Organization [facility] Address [address] [place] [address] Phone Care Team Providers Care Twill Cutter Name Role Phone Wali Chowdhury MD Primary Care Provider [phone] Rosy Llamas APN, INFORMATION DELIVERY ANALYST Unavailable Christi Rg MD Unavailable Reason for Visit * Reason Comments Medication Refill Encounter Details Date Type Department Care Team (Late st Contact Info) Description 08/10/2021 Refill [facility] #2 [place] [phone] Wali Chowdhury MD #[address] [address] Medication Refill Social History Tobacco Use Types [...] CDT Gender Identity Female 05/07/2023 8:21 PM GRID CASTING MACHINE OPERATOR HELPER Sexual Orientation Not on file documented as [...] Provider Dept 06/28/21 Telemedicine Rebeca Grimm PAC [facility] 03/29/21 Office Visit Marty Hoover APRN, [place] [facility] 02/03/21 Office Visit Wal[facility]dh[facility] 12/06/20 Office Visit [facility] [place] [facility] 09/16/20 Office Visit Marty Hoover APRN, [place] [facility] Showing recent visits within past 365 days and meeting all other requirements Future Appointments Date Type Provider Dept 09/27/21 Appointment Wali Chowdh[facility] MD [facility] Showing future appointments within next 90 days and meeting all other requirements CASTING MACHINE OPERATOR HELPER documented in this encounter Plan of Treatment Upcoming Encounters Date Type Department Care Team (Late st Contact Info) Description 02/03/2025 10:30 AM CDT Office Visit [facility] - Family Medicine - [place] [address] [place] [address] Marty Hoover APRN, [place] [address] [address] documented as of this encounter Visit Diagnoses Diagnosis Anxiety Anxiety state, unspecified documented in this encounter Additional Health Concerns Infection Onset Date Last Indicated Resolved Time COVID - 19 05/29/2022 05/29/2022 05/31/2022 8:12 AM GRID CASTING MACHINE OPERATOR HELPER Respiratory Rule-Out 05/29/2022 05/29/2022 022 2:50 PM GRID CASTING MACHINE OPERATOR HELPER Respiratory Rule Out - RPA 05/30/2022 05/30/2022 1 08/01/2021 3:50 PM GRID CASTING MACHINE OPERATOR HELPER COVID - 19 01/24/2024 01/24/2024 01/24/2024 10:2 8 AM CDT COVID - 19 02/25/2024 02/25/2024 02/25/2024 7:42 PM CDT Respiratory Rule-Out 08/13/2024 08/13/2024 025 7:04 PM GRID CASTING MACHINE OPERATOR HELPER COVID - 19 09/10/2024 09/10/2024 09/10/2024 2:03 PM CDT Respiratory Rule-Out 09/10/2024 09/10/2024 025 2:02 PM CDT Assessment Noted Time PHQ-9 Depression Total Score: 1 09/17/19 21 1:27 PM CDT documented as of this encounter Care Teams Twill Cutter Relationship Specialty Start Date End Date Wali Chowdhury MD [address] [facility] [address] [place] [address] PCP - General Family Medicine 05/10/15 Rosy Llamas, VETERINARY PRACTITIONER, INFORMATION DELIVERY ANALYST #[address] [facility] [address] [place] [address] Nurse Practitioner Advanced Practice Nurse 12/24/15 Christi Rg MD [address] [place] [address] Consulting Physician Obstetrics & Gynecology 11/26/18 documented as of this encounter
--- OUTSIDE RECORDS SUMMARY | 2025-01-24 20:46 | XMS_ITS ---
Author Organization [facility] Address [address] [place] [address] Phone Care Team Providers Care Production Supv Name Role Phone aWli Chowdhury MD Primary Care Provider [phone] Rosy Llamas APN, IMPORT/EXPORT CLERK Unavailable Christi Rg MD Unavailable OnCall Chronic Care Management Status:Identified (Enrolling) Start date:01/23/2025 Enrollment reason:Identified using claims or encounter data Related social drivers of health:Intimate Partner Violence, Social Connections, Alcohol Use, Tobacco Use, Financial Resource Strain,Depression, Stress, Physical Activity, Food Insecurity, Transportation Needs, Housing Stability, Utilities Continued Care and Services Coordination
--- OUTSIDE RECORDS SUMMARY | 2025-01-24 20:46 | XMS_ITS | Encounter Summary ---
Author Organization [facility] Address [address] [place] [address] Phone Care Team Providers Care Auctioneer Art Name Role Phone Wali Chowdhury MD Primary Care Provider [phone] Rosy Llamas APN, CORPORATE STAFF ACCOUNTANT Unavailable Christi Rg MD Unavailable Reason for Visit * Reason Comments Medication Refill Encounter Details Date Type Department Care Team (Late st Contact Info) Description 09/13/2022 Refill [facility] [address]2 [place] [phone] Wali Chowdhury MD #[address] [address] Medication Refill Social History Tobacco Use Types [...] CDT Gender Identity Female 05/07/2023 8:21 PM BROADCAST OPERATIONS DIRECTOR Sexual Orientation Not on file COVID-19 Exposure Response Date Recorded In the last 10 days, have yo u been in contact with someone who was confirmed or suspected to have Coronavirus/COVID-19? No / Unsure 08/23/2022 1:54 PM BROADCAST OPERATIONS DIRECTOR documented as of this encounter Miscellaneous Notes [...] Miguel 09/27/21 Office Visit Wali Chowdhury MD [facility] Showing recent visits within past 365 days and meeting all other requirements Future Appointments No visits were found meeting these conditions. Showing future appointments within next 90 days and meeting all other requirements documented in this encounter Plan of Treatment Upcoming Encounters Date Type Department Care Team (Late st Contact Info) Description 02/03/2025 10:30 AM CDT Office Visit [facility] Medical Group - Family Medicine - [place] [address] [place] [address] Marty Hoover APRN, CORPORATE STAFF ACCOUNTANT #2 [facility] [place] [address] documented as of this encounter Visit Diagnoses Diagnosis Anxiety Anxiety state, unspecified documented in this encounter Additional Health Concerns Infection Onset Date Last Indicated Resolved Time COVID - 19 01/24/2024 01/24/2024 01/24/2024 10:2 8 AM CDT COVID - 19 02/25/2024 02/25/2024 02/25/2024 7:42 PM CDT Respiratory Rule-Out 08/13/2024 08/13/2024 025 7:04 PM BROADCAST OPERATIONS DIRECTOR COVID - 19 09/10/2024 09/10/2024 09/10/2024 2:03 PM CDT Respiratory Rule-Out 09/10/2024 09/10/2024 025 2:02 PM CDT Assessment Noted Time PHQ-9 Depression Total Score: 1 09/17/19 21 1:27 PM CDT documented as of this encounter Care Teams Auctioneer Art Relationship Specialty Start Date End Date Wali Chowdhury MD [address] [place] [address] PCP - General Family Medicine 05/10/15 Rosy Llamas APN, CORPORATE STAFF ACCOUNTANT [address]2 [place] [address] Nurse Practitioner Advanced Practice Nurse 12/24/15 Christi Rg MD [address] [place] [address] Consulting Physician Obstetrics & Gynecology 11/26/18 documented as of this encounter
--- OUTSIDE RECORDS SUMMARY | 2025-01-24 20:46 | XMS_ITS | Encounter Summary ---
Author Organization [facility] Address [address] [place] [address] Phone Care Team Providers Care Elementary [employer] Music Teacher Name Role Phone Wali Chowdhury MD Primary Care Provider [phone] Rosy Llamas APN, NAILER OPERATOR Unavailable Christi Rg MD Unavailable Reason for Visit * Reason Comments Medication Refill Encounter Details Date Type Department Care Team (Late st Contact Info) Description 05/23/2023 Refill [facility] [address]2 [place] [phone] Wali Chowdhury MD #[address] [address] Medication Refill Social History Tobacco Use Types [...] CDT Gender Identity Female 05/07/2023 8:21 PM MOLD CHIPPER Sexual Orientation Not on file documented as of this encounter Miscellaneous Notes * Telephone Encounter - Linda Xoing RN - 05/23/2023 11:43 AM CST PDMP [...] 06/21/22 Office Visit Marty Hoover APRN, CNP [facility] [place] Showing recent visits within past 365 days and meeting all other requirements Future Appointments No visits were found meeting these conditions. Showing future appointments within next 90 days and meeting all other requirements CHIPPER documented in this encounter Plan of Treatment Upcoming Encounters Date Type Department Care Team (Late st Contact Info) Description 02/03/2025 10:30 AM CDT Office Visit [facility] Group - Family Medicine - [place] [address] [place] [address] Marty Hoover APRN, NAILER OPERATOR #[address] [address] documented as of this encounter Visit Diagnoses Diagnosis Anxiety Anxiety state, unspecified documented in this encounter Additional Health Concerns Infection Onset Date Last Indicated Resolved Time COVID - 19 01/24/2024 01/24/2024 01/24/2024 10:2 8 AM CDT COVID - 19 02/25/2024 02/25/2024 02/25/2024 7:42 PM CDT Respiratory Rule-Out 08/13/2024 08/13/2024 025 7:04 PM MOLD CHIPPER COVID - 19 09/10/2024 09/10/2024 09/10/2024 2:03 PM CDT Respiratory Rule-Out 09/10/2024 09/10/2024 025 2:02 PM CDT Assessment Noted Time PHQ-9 Depression Total Score: 1 09/17/19 21 1:27 PM CDT documented as of this encounter Care Teams Elementary [employer] Music Teacher Relationship Specialty Start Date End Date Wali Chowdhury MD [address] [address] PCP - General Family Medicine 05/10/15 Rosy Llamas, QUALITY REVIEW SPECIALIST, NAILER OPERATOR #[address] [address] Nurse Practitioner Advanced Practice Nurse 12/24/15 Christi Rg MD [address] [place] [address] Consulting Physician Obstetrics & Gynecology 11/26/18 documented as of this encounter
--- OUTSIDE RECORDS SUMMARY | 2025-01-24 20:46 | XMS_ITS | Encounter Summary ---
Author Organization [facility] Address [address] [place] [address] Care Team Providers Care Tire Care Manager Name Role Phone Unavailable Primary Care Provider Unavailsamantha e Encounter Details Date Type Department Care Team (Late st Contact Info) Description 12/14/2022 Lab Requisition [facility] - DermPath Lab [address] [place] [address] Daija Maria MD [address] [place], [place] [id number] Social History Tobacco Use Types Packs/Day Years [...] CDT) Case Report Dermatopathol ogy Report Case: [id number] Authorizing Provider: Daija Maria MD Collected: 12/13/2022 12:00 AM Ordering Location: [facility] DermPath Lab Received: 12/14/2022 06:11 AM Pathologist: Ann Almazan MD Specimen: Skin, left mid-upper back 3:17 PM CDT DERMATOPATHOLOGY LABORATORY Final Diagnosis Specimen A. SKIN, left mid-upper back: NO IMMUNOPATHOLO GICAL ABNORMALITY (L98.9) (see fixed tissue results [id number]) 3 3:17 PM CDT DERMATOPATHOLOGY LABORATORY at [...] determined by the Dermatopathol ogy Laboratory at [facility], directed by Dr. Garrett Almazan. These tests need not be, and therefore are not, approved by the [place] Food and Drug Administratio n. The tests are used for clinical purposes. Billing Codes Specimen Charges Stain Charges 13096 70614 30836 92611 05517 51623 1 1 1 1 1 1 3 3:17 PM CDT DERMATOPATHOLOGY LABORATORY Embedded Images 3 3:17 PM CDT DERMATOPATHOLOGY LABORATORY Pathology/Cytolog y TISSUE SPECIMEN FROM SKIN / Unknown 12/13/2022 12/14/2022 6:11 AM CDT us Daija Maria MD LAB - PATHOLOGY/CYTOLOGY ABELINOE SAMAN Final Result DERMATOPATHOLOGY LABORATORY [facility] - Department of Dermatology [facility] Medicine [address] [place] [address], [address] [phone] documented in this encounter Visit Diagnoses Not on filedocumented in this encounter
--- OUTSIDE RECORDS SUMMARY | 2025-01-24 20:46 | XMS_ITS | Encounter Summary ---
Author Organization [facility] Address [address] [place] [address] Phone Care Team Providers Care Director Of Therapy Services Name Role Phone Wali Chowdhury MD Primary Care Provider [phone] Rosy Llamas APN, SENIOR PLANNING ANALYST Unavailable Christi Rg MD Unavailable Reason for Visit * Reason Comments Medication Refill Encounter Details Date Type Department Care Team (Late st Contact Info) Description 08/02/2023 Refill [facility] [address]2 [place] [address] Wali Chowdhury MD #[address] [address] Medication Refill Social History Tobacco Use Types [...] CDT Gender Identity Female 05/07/2023 8:21 PM RUBBER AND PLASTICS WORKER Sexual Orientation Not on file documented [...] 08/23/22 Office Visit Marty Hoover APRN, CNP [facility] [place] Showing recent visits within past 365 days and meeting all other requirements Future Appointments Date Type Provider Dept 08/29/23 Appointment Wali Chowdhury MD [facility] [place] Showing future appointments within next 90 days and meeting all other requirements ER AND PLASTICS WORKER documented in this encounter Plan of Treatment Upcoming Encounters Date Type Department Care Team (Late st Contact Info) Description 02/03/2025 10:30 AM CDT Office Visit [facility] Medical Group - Family Medicine - [place] [address] [place] [address] Marty Hoover APRN, [place] #[address] [address] documented as of this encounter Visit Diagnoses Diagnosis Anxiety Anxiety state, unspecified documented in this encounter Additional Health Concerns Infection Onset Date Last Indicated Resolved Time COVID - 19 01/24/2024 01/24/2024 01/24/2024 10:2 8 AM CDT COVID - 02/25/2024 02/25/2024 02/25/2024 7:42 PM CDT Respiratory Rule-Out 08/13/2024 08/13/2024 025 7:04 PM RUBBER AND PLASTICS WORKER COVID - 19 09/10/2024 09/10/2024 09/10/2024 2:03 PM CDT Respiratory Rule-Out 09/10/2024 09/10/2024 025 2:02 PM CDT Assessment Noted Time PHQ-9 Depression Total Score: 1 09/17/19 21 1:27 PM CDT documented as of this encounter Care Teams Director Of Therapy Services Relationship Specialty Start Date End Date Wali Chowdhury MD [address] [address] PCP - General Family Medicine 05/10/15 Rosy Llamas APN, SENIOR PLANNING ANALYST #[address] [address] Nurse Practitioner Advanced Practice Nurse 12/24/15 Christi Rg MD [address] [place] [address] Consulting Physician Obstetrics & Gynecology 11/26/18 documented as of this encounter
--- OUTSIDE RECORDS SUMMARY | 2025-01-24 20:46 | XMS_ITS | Encounter Summary ---
Author Organization [facility] Address [address] [place] [address] Phone Care Team Providers Care Economic Analysis Director Name Role Phone Wali Chowdhury MD Primary Care Provider [phone] Roys Llamas APN, MARKETING CAMPAIGN ANALYST Unavailable Christi Rg MD Unavailable [phone] Reason for Visit * Reason Comments Medication Refill Encounter Details Date Type Department Care Team (Late st Contact Info) Description 09/05/2023 Refill [facility] [address]2 [place] [address] Wali Chowdhury MD #[address] [address] Medication Refill Social History Tobacco Use Types [...] CDT Gender Identity Female 05/07/2023 8:21 PM CONSTRUCTION SUPERVISOR Sexual Orientation Not on file documented as of this encounter Miscellaneous Notes * Telephone Encounter - Linda Xiong RN - 09/05/2023 12:36 PM CDT Medication(s) refilled and signed per [facility] Chronic Medication Refill Standing Order for [...] 02/28/23 Office Visit Marty Hoover APRN, CNP [facility] [place] Showing recent visits within past 365 days and meeting all other requirements Future Appointments Date Type Provider Dept 09/17/23 Appointment Marty Hoover APRN, CNP [facility] [place] Showing future appointments within next 90 days and meeting all other requirements documented in this encounter Plan of Treatment Upcoming Encounters Date Type Department Care Team (Late st Contact Info) Description 02/03/2025 10:30 AM CDT [facility] [place] [address] [place] [address] Marty Hoover APRN, [place] #[address] [address] documented as of this encounter Visit Diagnoses Diagnosis Chronic heart failure with preserved ejection fraction (HCC) documented in this encounter Additional Health Concerns Infection Onset Date Last Indicated Resolved Time COVID - 19 01/24/2024 01/24/2024 01/24/2024 10:2 8 AM CDT COVID - 19 02/25/2024 02/25/2024 02/25/2024 7:42 PM CDT Respiratory Rule-Out 08/13/2024 08/13/2024 025 7:04 PM CONSTRUCTION SUPERVISOR COVID - 19 09/10/2024 09/10/2024 09/10/2024 2:03 PM CDT Respiratory Rule-Out 09/10/2024 09/10/2024 025 2:02 PM CDT Assessment Noted Time PHQ-9 Depression Total Score: 1 09/17/19 21 1:27 PM CDT documented as of this encounter Care Teams Economic Analysis Director Relationship Specialty Start Date End Date Wali Chowdhury MD [address] [address] PCP - General Family Medicine 05/10/15 Rosy Llamas, SPARE HAND CARDING, MARKETING CAMPAIGN ANALYST #[address] [address] Nurse Practitioner Advanced Practice Nurse 12/24/15 Christi Rg MD [address] [place] [address] Consulting Physician Obstetrics & Gynecology 11/26/18 documented as of this encounter
--- OUTSIDE RECORDS SUMMARY | 2025-01-24 20:46 | XMS_ITS | Encounter Summary ---
Author Organization [facility] Address [address] [place] [address] Phone Care Team Providers Care Christian Science Reader Name Role Phone Wali Chowdhury MD Primary Care Provider [phone] Rosy Llamas APN, MARKETING OPERATIONS ANALYST Unavailable Christi Rg MD Unavailable Reason for Visit * Reason Comments Medication Refill Encounter Details Date Type Department Care Team (Late st Contact Info) Description 09/27/2020 Refill [facility] [address]2 [place] [phone] Marty Hoover, HISTORIOGRAPHY TEACHER, MARKETING OPERATIONS ANALYST #[address] [address] Medication Refill Social History Tobacco Use Types [...] CDT Gender Identity Female 05/07/2023 8:21 PM HEEL BRUSHER Sexual Orientation Not on file COVID-19 Exposure [...] Pending Prescriptions Disp Refills ergocalciferol (VITAMIN D) 13760 UNIT Capsule [Pharmacy Med Name: VITAMIN D2 1.25MG(50,000 UNIT)] 12 Capsule 0 Sig: TAKE 1 CAPSULE BY MOUTH ONE TIME PER WEEK Off-Protocol Failed - 09/27/2020 1:30 PM Failed - Medication not assigned to a protocol, review manually. Passed - Valid encounter within last 12 months Past Office Visits Recent Outpatient Visits 1 week ago Other fatigue [facility] - Marty Madrigal APN, ALMA DELIA 2 months ago Hyperlipidemia, unspecified hyperlipidemia type [facility] - Marty Madrigal APN, [place] DEL[place] 1 year ago Strain of thoracic back region [facility] - Marty Madrigal APN, [place] DEL[place] 1 year ago Chronically on benzodiazepine therapy [facility] - Wali Rangel MD 2 years ago Renal mass [facility] Medical [facility] Family [facility] - Marty Madrigal APN, CNP Upcoming Appointments Future Appointments In 1 week Lab, [facility], [facility] In 3 months Wali Chowdhury MD [facility] [place], [facility] BULK DELIVERY DRIVER - Recent and Past Visits Recent Visits Date Type Provider Dept 09/16/20 Office Visit Marty Hoover APN, CNP [facility] 07/09/20 Office Visit Marty Hoover APN, CNP [facility] Showing recent visits within past 460 days [...] Description 02/03/2025 10:30 AM CDT Office Visit [facility] [place] [address]2 [place] [address] Marty Hoover APRN, CNP #[address] [address] documented as of this encounter Visit Diagnoses Diagnosis Vitamin D deficiency Unspecified vitamin D deficiency documented in this encounter Additional Health Concerns Infection Onset Date Last Indicated Resolved Time COVID - 19 05/29/2022 05/29/2022 05/31/2022 8:12 AM HEEL BRUSHER Respiratory Rule-Out 05/29/2022 05/29/2022 022 2:50 PM HEEL BRUSHER Respiratory Rule Out - RPA 05/30/2022 05/30/2022 1 08/01/2021 3:50 PM HEEL BRUSHER COVID - 19 01/24/2024 01/24/2024 01/24/2024 10:2 8 AM CDT COVID - 19 02/25/2024 02/25/2024 02/25/2024 7:42 PM CDT Respiratory Rule-Out 08/13/2024 08/13/2024 025 7:04 PM HEEL BRUSHER COVID - 19 09/10/2024 09/10/2024 09/10/2024 2:03 PM CDT Respiratory Rule-Out 09/10/2024 09/10/2024 025 2:02 PM CDT Assessment Noted Time PHQ-9 Depression Total Score: 1 09/17/19 21 1:27 PM CDT documented as of this encounter Care Teams Christian Science Reader Relationship Specialty Start Date End Date Wali Chowdhury MD [address] [place] [address] PCP - General Family Medicine 05/10/15 Rosy Llamas, MACHINE FEEDER RAW STOCK, MARKETING OPERATIONS ANALYST #[address] [place] [address] Nurse Practitioner Advanced Practice Nurse 12/24/15 Christi Rg MD [address] [place] [address] Consulting Physician Obstetrics & Gynecology 11/26/18 documented as of this encounter
--- OUTSIDE RECORDS SUMMARY | 2025-01-24 20:46 | XMS_ITS | Encounter Summary ---
Author Organization [facility] Address [address] [place] [address] Phone Care Team Providers Care Transport Nurse Name Role Phone Wali Chowdhury MD Primary Care Provider [phone] Rosy Llamas APN, LIME SUPERVISOR Unavailable Christi Rg MD Unavailable Reason for Visit * Reason Comments Medication Refill Encounter Details Date Type Department Care Team (Late st Contact Info) Description 02/06/2023 Refill [facility] [address]2 [place] [phone] Wali Chowdhury MD #[address] [address] Medication Refill Social History Tobacco Use Types [...] CDT Gender Identity Female 05/07/2023 8:21 PM BOOM TRUCK DRIVER Sexual Orientation Not on file documented as [...] Miguel 04/13/22 Office Visit Wali Chowdhury MD [facility] [place] Showing recent visits within past [...] Description 02/03/2025 10:30 AM CDT Office Visit [facility] - Family Medicine - [place] [address] [place] [address] Marty Hoover APRN, AL[place] DELIA #[address] [address] documented as of this encounter Visit Diagnoses Diagnosis Anxiety Anxiety state, unspecified documented in this encounter Additional Health Concerns Infection Onset Date Last Indicated Resolved Time COVID - 19 01/24/2024 01/24/2024 01/24/2024 10:2 8 AM CDT COVID - 19 02/25/2024 02/25/2024 02/25/2024 7:42 PM CDT Respiratory Rule-Out 08/13/2024 08/13/2024 025 7:04 PM BOOM TRUCK DRIVER COVID - 19 09/10/2024 09/10/2024 09/10/2024 2:03 PM CDT Respiratory Rule-Out 09/10/2024 09/10/2024 025 2:02 PM CDT Assessment Noted Time PHQ-9 Depression Total Score: 1 09/17/19 21 1:27 PM CDT documented as of this encounter Care Teams Transport Nurse Relationship Specialty Start Date End Date Wali Chowdhury MD #[address] [address] PCP - General Family Medicine 05/10/15 Rosy Llamas, ACETYLENE TORCH OPERATOR, LIME SUPERVISOR [address] [address] Nurse Practitioner Advanced Practice Nurse 12/24/15 Christi Rg MD [address] [place], [place] [address] [address] Consulting Physician Obstetrics & Gynecology 11/26/18 documented as of this encounter
--- OUTSIDE RECORDS SUMMARY | 2025-01-24 20:46 | XMS_ITS | Encounter Summary ---
Author Organization [facility] Address [address] [place] [address] Phone Care Team Providers Care Timber Framer Name Role Phone Wali Chowdhury MD Primary Care Provider [phone] Rosy Llamas APN, LEATHER CURRIER Unavailable Christi Rg MD Unavailable [phone] Reason for Visit * Reason Comments Medication Refill Encounter Details Date Type Department Care Team (Late st Contact Info) Description 03/21/2024 Refill [facility] - [place] [address] [place] [phone] aMrty Hoover, DIGITAL PHOTOGRAPHIC PRINTER, LEATHER CURRIER #[address] [address] Medication Refill Social History Tobacco Use Types Packs/Day Years Used Date Smoking Tobacco: Never Smokeless Tobacco: Never Alcohol Use Standard Drinks/Week Comments Never 0 (1 standard drink = 0.6 oz pur e alcohol) [facility] Utilities Answer Date Recorded In the past 12 months has [employer], gas, oil, or water company threatened to [...] often do you attend chur ch or jehovah's witness services? More than 4 times per year 02/26/2024 Do you belong to any clubs o r organizations such as temple groups, unions, fraternal or athletic groups, or [...] Total Score - Questions 1-9 0 02/24 [facility] - Occupational Stress [...] place to sleep or slept in a fpc (including now)? No 09/17/2023 Housing Stability Vital Sign Answer Brian e Recorded In the last 12 months, was t here a time when you were not able to pay the mortgage or rent on time? No 02/26/2024 In the past 12 months, how m any times have you moved where you were living? 0 02/26/2024 At any time in the past 12 m [facility], were you homeless or living in a fpc (including now)? No 02/26/2024 Education Answer Date [...] CDT Gender Identity Female 05/07/2023 8:21 PM BLOW MOULDING MACHINE OPERATOR Sexual Orientation Not on file documented as of this encounter Miscellaneous Notes * Telephone Encounter - Linda Xiong RN - 03/21/2024 2:11 PM CDT Images from the original note were not included. Atorvastatin Calcium Dispensed Days Supply Quantity Provider Pharmacy ATORVASTATIN 10MG TABLETS 03/19/2024 90 90 Each Marty Hoover APRN, AL[place] DELIA [facility]. documented in this encounter Plan of Treatment Upcoming Encounters Date Type Department Care Team (Late st Contact Info) Description 02/03/2025 10:30 AM CDT Office Visit [facility] - [facility] - [place] [address]2 [place] [address] Marty Hoover APRN, LEATHER CURRIER [facility] [address] [address] documented as of this encounter Visit Diagnoses Diagnosis Pure hypercholesterolemia documented in this encounter Additional Health Concerns Infection Onset Date Last Indicated Resolved Time Respiratory Rule-Out 08/13/2024 08/13/2024 025 7:04 PM BLOW MOULDING MACHINE OPERATOR COVID - 19 09/10/2024 09/10/2024 09/10/2024 2:03 PM CDT Respiratory Rule-Out 09/10/2024 09/10/2024 025 2:02 PM CDT Assessment Noted Time PHQ-9 Depression Total Score: 0 03/17/20 24 8:35 AM CDT documented as of this encounter Care Teams Timber Framer Relationship Specialty Start Date End Date Wali Chowdhury MD [facility] [address] [address] PCP - General Family Medicine 05/10/15 Rosy Llamas APN, LEATHER CURRIER #[address] [address] Nurse Practitioner Advanced Practice Nurse 12/24/15 Christi Rg MD [address] [address] Consulting Physician Obstetrics & Gynecology 11/26/18 documented as of this encounter
--- OUTSIDE RECORDS SUMMARY | 2025-01-24 20:46 | XMS_ITS | Encounter Summary ---
Author Organization [facility] Address [address] [place] [address] Phone Care Team Providers Care Sketch Liner Name Role Phone Wali Chowdhury MD Primary Care Provider [phone] Rosy Llamas APN, INSULATION BLOWER Unavailable Christi Rg MD Unavailable Reason for Visit * Reason Comments Medication Refill Encounter Details Date Type Department Care Team (Late st Contact Info) Description 09/23/2021 [facility] [place] [phone] Wali Chowdhury MD #[address] [address] Medication Refill Social History Tobacco Use Types [...] CDT Gender Identity Female 05/07/2023 8:21 PM PATIENT REGISTRATION CLERK Sexual Orientation Not on file documented as [...] Provider Dept 06/28/21 Telemedicine Rebeca Grimm PAC [facility] 03/29/21 Office Visit Marty Hoover APRN, [facility] DEL[facility] 02/03/21 Office Visit Wali Chowdhury MD [facility] 12/06/20 Office Visit Marty Hoover APRN, [place] DELIA [facility] Showing recent visits within past 365 days and meeting all other requirements Future Appointments Date Type Provider Dept 09/27/21 Appointment Wali Chowdhury MD [facility] Showing future appointments within next 90 days and meeting all other requirements documented in this encounter Plan of Treatment Upcoming Encounters Date Type Department Care Team (Late st Contact Info) Description 02/03/2025 10:30 AM CDT Office Visit [facility] - Family Medicine - [place] #2 [place] [address] Marty Hoover APRN, [place] DELIA [address] [address] documented as of this encounter Visit Diagnoses Diagnosis Anxiety Anxiety state, unspecified documented in this encounter Additional Health Concerns Infection Onset Date Last Indicated Resolved Time COVID - 19 05/29/2022 05/29/2022 05/31/2022 8:12 AM PATIENT REGISTRATION CLERK Respiratory Rule-Out 05/29/2022 05/29/2022 022 2:50 PM PATIENT REGISTRATION CLERK Respiratory Rule Out - RPA 05/30/2022 05/30/2022 1 08/01/2021 3:50 PM PATIENT REGISTRATION CLERK COVID - 19 01/24/2024 01/24/2024 01/24/2024 10:2 8 AM CDT COVID - 19 02/25/2024 02/25/2024 02/25/2024 7:42 PM CDT Respiratory Rule-Out 08/13/2024 08/13/2024 025 7:04 PM PATIENT REGISTRATION CLERK COVID - 19 09/10/2024 09/10/2024 09/10/2024 2:03 PM CDT Respiratory Rule-Out 09/10/2024 09/10/2024 025 2:02 PM CDT Assessment Noted Time PHQ-9 Depression Total Score: 1 09/17/19 21 1:27 PM CDT documented as of this encounter Care Teams Sketch Liner Relationship Specialty Start Date End Date Wali Chowdhury MD #[address] [facility] [address] [place] [address] PCP - General Family Medicine 05/10/15 Rosy Llamas, BICYCLE REPAIR TECHNICIAN, INSULATION BLOWER #[address] [facility] [address] [place] [address] Nurse Practitioner Advanced Practice Nurse 12/24/15 Christi Rg MD [address] [place] [address] Consulting Physician Obstetrics & Gynecology 11/26/18 documented as of this encounter
--- OUTSIDE RECORDS SUMMARY | 2025-01-24 20:46 | XMS_ITS | Encounter Summary ---
Author Organization [facility] Address [address] [place] [address] Phone Care Team Providers Care Shipping Clerk Packing Name Role Phone Wali Chowdhury MD Primary Care Provider [phone] Rosy Llamas APN, FRUIT CULLER Unavailable Christi Rg MD Unavailable [phone] Reason for Visit * Reason Comments Medication Refill Encounter Details Date Type Department Care Team (Late st Contact Info) Description 11/17/2022 Refill [facility] #2 [place] [phone] Wali Chowdhury MD #[address] [address] Medication Refill Social History Tobacco Use Types [...] CDT Gender Identity Female 05/07/2023 8:21 PM FISH SMOKER Sexual Orientation Not on file documented as [...] 06/21/22 Office Visit Marty Hoover APRN, CNP [facility] [place] 04/13/22 Office Visit Wali Chowdhury MD [facility] 12/27/21 Office Visit [facility] Show[facility] recent visits within past 365 days and meeting all other requirements Future Appointments No visits were found meeting these conditions. Showing future appointments within next 90 days and meeting all other requirements documented in this encounter Plan of Treatment Upcoming Encounters Date Type Department Care Team (Late st Contact Info) Description 02/03/2025 10:30 AM CDT Office Visit [facility] Medical Group - Family Medicine - [place] [address] [place] [address] Marty Hoover APRN, FRUIT CULLER #[address] [address] documented as of this encounter Visit Diagnoses Diagnosis Anxiety Anxiety state, unspecified documented in this encounter Additional Health Concerns Infection Onset Date Last Indicated Resolved Time COVID - 19 01/24/2024 01/24/2024 01/24/2024 10:2 8 AM CDT COVID - 19 02/25/2024 02/25/2024 02/25/2024 7:42 PM CDT Respiratory Rule-Out 08/13/2024 08/13/2024 025 7:04 PM FISH SMOKER COVID - 19 09/10/2024 09/10/2024 09/10/2024 2:03 PM CDT Respiratory Rule-Out 09/10/2024 09/10/2024 025 2:02 PM CDT Assessment Noted Time PHQ-9 Depression Total Score: 1 09/17/19 21 1:27 PM CDT documented as of this encounter Care Teams Shipping Clerk Packing Relationship Specialty Start Date End Date Wali Chowdhury MD #[address] [address] PCP - General Family Medicine 05/10/15 Rosy Llamas, SCHOOL TEACHER, FRUIT CULLER #[address] [address] Nurse Practitioner Advanced Practice Nurse 12/24/15 Christi Rg MD [address] [place], [place] [address] [address] Consulting Physician Obstetrics & Gynecology 11/26/18 documented as of this encounter
--- OUTSIDE RECORDS SUMMARY | 2025-01-24 20:46 | XMS_ITS | Encounter Summary ---
Author Organization [facility] Address [address] [place] [address] Phone Care Team Providers Care Fingerer Name Role Phone Wali Chowdhury MD Primary Care Provider [phone] Rosy Llamas APN, SWEDGER Unavailable Christi Rg MD Unavailable Reason for Visit * Reason Comments Medication Refill Encounter Details Date Type Department Care Team (Late st Contact Info) Description 11/05/2021 [facility] [place] [phone] Wali Chowdhury MD #[address] [address] Medication Refill Social History Tobacco Use Types [...] CDT Gender Identity Female 05/07/2023 8:21 PM SUBSTATION SUPERVISOR Sexual Orientation Not on file documented [...] Dept 09/27/21 Office Visit Wali Chowdhury MD [facility] [place] 06/28/21 Telemedicine Rebeca Grimm [facility] 03/29[facility]21 Office Visit Marty Hoover APRN, CNP [facility] [place] 02/03/21 [facility] 12/06/20 Office Visit Marty Hoover APRN, CNP [facility] Showing recent visits within past 365 days and meeting all other requirements Future Appointments Date Type Provider Dept 12/27/21 Appointment Wali Chowdhury MD [facility] [place] Showing future appointments within next 90 days and meeting all other requirements documented in this encounter Plan of Treatment Upcoming Encounters Date Type Department Care Team (Late st Contact Info) Description 02/03/2025 10:30 AM CDT Office Visit [facility] - Family Medicine - [place] #2 [place] [address] Marty Hoover APRN, SWEDGER #[address] [address] documented as of this encounter Visit Diagnoses Diagnosis Anxiety Anxiety state, unspecified documented in this encounter Additional Health Concerns Infection Onset Date Last Indicated Resolved Time COVID - 19 05/29/2022 05/29/2022 05/31/2022 8:12 AM SUBSTATION SUPERVISOR Respiratory Rule-Out 05/29/2022 05/29/2022 022 2:50 PM SUBSTATION SUPERVISOR Respiratory Rule Out - RPA 05/30/2022 05/30/2022 1 08/01/2021 3:50 PM SUBSTATION SUPERVISOR COVID - 19 01/24/2024 01/24/2024 01/24/2024 10:2 8 AM CDT COVID - 19 02/25/2024 02/25/2024 02/25/2024 7:42 PM CDT Respiratory Rule-Out 08/13/2024 08/13/2024 025 7:04 PM SUBSTATION SUPERVISOR COVID - 19 09/10/2024 09/10/2024 09/10/2024 2:03 PM CDT Respiratory Rule-Out 09/10/2024 09/10/2024 025 2:02 PM CDT Assessment Noted Time PHQ-9 Depression Total Score: 1 09/17/19 21 1:27 PM CDT documented as of this encounter Care Teams Fingerer Relationship Specialty Start Date End Date Wali Chowdhury MD #[address] [facility] [address] [place] [address] PCP - General Family Medicine 05/10/15 Rosy Llamas, WELL LOGGING MUD ANALYSIS CAPTAIN, SWEDGER #[address] [facility] [address] [place] [address] Nurse Practitioner Advanced Practice Nurse 12/24/15 Christi Rg MD [address] [place] [address] Consulting Physician Obstetrics & Gynecology 11/26/18 documented as of this encounter
--- OUTSIDE RECORDS SUMMARY | 2025-01-24 20:46 | XMS_ITS | Clinical Summary ---
Author Organization [facility] Address [address] [place] [address] Phone Care Team Providers Care Two Way Radio Technician Name Role Phone Wali Chowdhury MD Primary Care Provider [phone] Rosy Llamas APN, MACHINERY DISMANTLER Unavailable Christi Rg MD Unavailable [phone] Allergies Active Allergy Reactions Criticality Noted Date [...] therapy 11/07/2018 Hyperglycemia 05/13/2018 Lesion of right newtok ureter 04/09/2018 Lesion of spleen 03/01/2018 Hyperlipidemia [...] 11:59 PM CDT Hospital Encounter [facility] [address] [place] [phone] Marty Hoover APRN, MACHINERY DISMANTLER Discharge Disposition: Discharged to home or Selfcare 01/03/2025 Travel 12/11/2024 Refill [facility] [address] [place] [phone] Wali Chowdhury MD Medication Refill 11/25/2024 Results Follow-Up [facility] [address] [place] [phone] Marty Hoover APRN, CNP ADULT TRANS THORACIC ECHO 2D COMPLETE 11/24/2024 1:00 PM CDT - 11/24/2024 11:59 PM CDT [facility] [address] [place] [phone] Marty Hoover APRN, CNP Discharge Disposition: Discharged to home or Selfcare 11/24/2024 12:00 PM CDT - 11/24/2024 12:59 PM CDT Hospital Encounter [facility] [address] [place] [phone] Marty Hoover APRN, CNP Discharge Disposition: Discharged to home or Selfcare 11/23/2024 Travel 11/15/2024 Results Follow-Up [facility] [address] [place] [phone] Marty Hoover APRN, CNP CT RENAL W/WO CONTRAST 11/13/2024 3:00 PM CDT - 11/13/2024 11:59 PM CDT [facility] [address] [place] [phone] Marty Hoover APRN, CNP Discharge Disposition: Discharged to home or Selfcare 11/12/2024 Travel 11/03/2024 1:00 PM CDT Office Visit [facility] [address] [place] [phone] Marty Hoover APRN, CNP Multifocal pneumonia (Primary Dx); Shortness of breath; Right renal mass Discharge Disposition: Discharged to home or Selfcare 11/03/2024 Telephone [facility] [address] [place] [phone] Wali Chowdhury MD Medication Management 11/03/2024 Travel 10/27/2024 Results [facility] [place] [address] [place] [address] Marty Hoover, HOUSE RN, MACHINERY DISMANTLER CT CHEST W/O CONTRAST from Last 3 [...] 1 J Sister 2 S Sister 3 Liseth Social History Tobacco Use Types Packs/Day Years Used Date Smoking Tobacco: Never Smokeless Tobacco: Never Tobacco Cessation:Counseling Given: No Alcohol Use Standard Drinks/Week Comments Never 0 (1 standard drink = 0.6 oz pur e alcohol) [facility] Utilities Answer Date Recorded In the [...] week 02/26/2024 How often do you attend [facility] or jain services? More than 4 times per year 02/26/2024 Do you belong to any clubs o r organizations such as adventism groups, unions, fraternal or athletic groups, or [...] Total Score - Questions 1-9 0 10/23 [facility] [place] of Occupat ional Health - Occupational Stress [...] in a longterm (including now)? No 09/17/2023 Housing Stability Vital Sign Answer Brian e Recorded In the last 12 months, was t here a time when you were not able to pay the mortgage or rent on time? No 02/26/2024 In the past 12 months, how m any times have you moved where you were living? 0 02/26/2024 At any time in the past 12 m [facility], were you homeless or living in a longterm (including now)? No 02/26/2024 Education Answer Date [...] CDT Gender Identity Female 05/07/2023 8:21 PM STATE APPELLATE CLERK Sexual Orientation Not on file Last Filed [...] [facility] [place] [address] [place] [address] Marty Hovoer APRN, MACHINERY DISMANTLER [address] [address] Health Maintenance Due Date Last Done Comments [...] this topic Medical Devices Implanted Type Area Plastics Design Engineer Device Identifier Shelf Expiration Date Model / Serial / Lot Slng Urth Align Spbc Pp Sprt Sys Hk - [id number] Implanted:Qty : 1 on 06/30/2015 by Rip Whitman MD at [facility] IMPLANT N/A: Urethra CR BARD / UROLOGICAL 04/30/2016 [id number] / / [id number] Procedures Procedure Name Priority Date/Time Associated Diagnosis [...] DENSITOMETRY AXIAL SKELETON Routine 05/22/2023 9:58 AM STATE APPELLATE CLERK Asymptomatic postmenopausal status HEPATITIS C ANTIBODY Routine [...] Vinny Pagan M.D. AR: ELLIS Report ID: [id number] Reading Location: [id number] Procedure Note Vinny Pagan MD - 01/23/2025 [...] Vinny Pagan M.D. AR: ELLIS Report ID: [id number] Reading Location: [id number] IMPRESSION: Scattered granulomas and areas of peripheral [...] ml/m2 RESULTING AGENCY LVOT Peak Toby m/sec [id number] m/sec RESULTING AGENCY AV Peak Toby m/sec [...] name CHRISTOS AgustinO.B. 1945 Patient ID (I) [id number] Indications: Shortness of breath, Hypertension and Heart [...] Gradient: 3.47 mmHg Mean Gradient: 2 mmHg ND ED Velocity: 1.07 m/s Estimated PASP: 19.32 [...] lbs. BMI (BSA) 24.35 kg/m^2 (1.73 m^2) Forensic Science Technician Rupa Roche Interpreting Guerda Hernandez Referring Physician Abby GARCIA Physician Jaclyn Strong Procedure Note Kelle Anaya DO - 11/24/2024 Transthoracic Echocardiography Report (TTE) Patient name CHRISTOS Ricketts 1945 Patient ID (UPI) [id number] Indications: Shortness of breath, Hypertension and Heart [...] Gradient: 3.47 mmHg Mean Gradient: 2 mmHg ND ED Velocity: 1.07 m/s Estimated PASP: 19.32 [...] lbs. BMI (BSA) 24.35 kg/m^2 (1.73 m^2) Forensic Science Technician Rupa Roche Interpreting Guerda Hernandez Referring Physician Abby Strong us Marty Hoover HOUSE RN, MACHINERY DISMANTLER IMG ECHO ORDERAB LES Edited Result - [...] Russel Smith M.D. BS: TROY Report ID: [id number] Reading Location: [id number] Procedure Note Russel Smith MD - 11/15/2024 [...] Russel Smith M.D. BS: TROY Report ID: [id number] Reading Location: [id number] IMPRESSION: 1. Previously noted possible solid right [...] - 1.3 mg/dL 11/14/2024 7:29 AM CDT [facility] Blood 11/13/2024 3:29 PM CDT 11/14/2024 7:29 AM CDT us None Provider POINT OF CARE TESTING Final Resu lt [facility] [address] [place] [address] * [facility] BONE DENSITOMETRY AXIAL SKELETON (05/22/2023 9:58 AM STATE APPELLATE CLERK) Anatomical Region Laterality Modality BODY N/A Computed Radiogr aphy 05/22/2023 11:2 7 AM STATE APPELLATE CLERK Impressions 05/22/2023 11:29 AM STATE APPELLATE CLERK IMPRESSION: Low Bone Mass. REFERENCE: Bone mineral [...] of Osteoporosis (http://www.nof.org/professionals/clinical-guidelines) Narrative 05/22/2023 11:29 AM STATE APPELLATE CLERK EXAM DESCRIPTION: [facility] BONE DENSITOMETRY AXIAL SKELETON REASON FOR STUDY: 77 y/o year old F with given history of: Asymptomatic postmenopausal status Plastics Design Engineer/Model: AdaptiveMobile (S/N [id number]) CLINICAL INFORMATION: Current height: 65 inches Maximum [...] signed by Kamron ADLER: VITOR Report ID: [id number] Reading Location: [place] [address] Procedure Note Kamron Shaikh MD - 05/22/2023 EXAM DESCRIPTION: [facility] BONE DENSITOMETRY AXIAL SKELETON REASON FOR STUDY: 77 y/o year old F with given history of: Asymptomatic postmenopausal status Plastics Design Engineer/Model: AdaptiveMobile (S/N [id number]) CLINICAL INFORMATION: Current height: 65 inches Maximum [...] signed by Kamron ADLER: VITOR Report ID: [id number] Reading Location: [place] [address] IMPRESSION: Low Bone Mass. REFERENCE: Bone mineral [...] <1 S/CO 12/31/2017 10:42 PM CDT [facility] Comment: Signal/Cutoff ratio < 0.79 is Nondetected Signal/Cutoff ratio 0.80-0.99 is Grayzone Signal/Cutoff ratio > 0.99 is Detected Supplemental assays are recommended if signal/cutoff ratio is >/=1.00. Signal/cutoff ratio result >/= 5.00 is 97% predictive of positivity for recombinant immunoblot assay (RIBA) and will be reported to the [place] Department of Public Health as required. Blood specimen (specimen) Venipuncture / Unknown 12/31/2017 1:10 PM CDT 12/31/2017 1:50 PM CDT Wali Chowdhury MD CHEMISTRY ORDERABLES Janelle l Result [facility] [address] [place] [address], * HM COLONOSCOPY (12/21/2010) Wali Chowdhury MD PROCEDURE/MINOR SURGICAL ORDERABLES Final Result from Last 3 Months or Most Recently Relevant to Health Maintenance Insurance MEDICARE COMMERCIAL GENERIC Advance Directives Documents on File Type Date Recorded Patient Electronic Scale Tester Expl anation Power of Digital Strategy Manager for Health Care 06/05/2022 12:32 PM POA-, [...] measures to stabilize the patient. Care Teams Two Way Radio Technician Relationship Specialty Start Date End Date [facility] Chowdhury [facility] [address] [address] PCP - General Family Medicine 05/10/15 Rosy Llamas, SENIOR INVESTMENT ANALYST, MACHINERY DISMANTLER [address] [facility] [address] [address] [address] Nurse Practitioner Advanced Practice Nurse 12/24/15 Christi Rg MD [address] [place] [address] [place] [id number] Consulting Physician Obstetrics & Gynecology 11/26/18
--- NOTE | 2025-01-24 21:43 | ECG_ITS ---
Test Date: 2025-01-24 22:48:11 Measurements Intervals [place] Rate: 72 P: 57 TX: 235 QRS: -39 QRSD: 98 T: 20 QT: 403 QTc: 444 Interpretive Statements SINUS RHYTHM WITH FIRST DEGREE AV BLOCK LEFT AXIS DEVIATION PATTERN CONSISTENT WITH PULMONARY DISEASE INCOMPLETE RIGHT BUNDLE BRANCH BLOCK BASELINE ARTIFACT- I, II, V2-V4 BORDERLINE ECG Compared to ECG 02/11/2024 13:47:04 Left-axis deviation now present Electronically Signed On 01-25-2025 08:10:02 CDT by Balaji Ballesteros D.O.
[2025-01-24 21:56] LABS: Hematocrit 39.5 % (35.0-42.0); Hemoglobin 13.7 g/dL (11.7-13.8); Immature Granulocyte Percent A 0.3 % (0.0-0.0); Lymphocytes Absolute Auto 1.08 K/mm3 (1.10-4.50); Mean Corpuscular HGB Conc 34.7 g/dL (32-36); Mean Corpuscular Hemoglobin 30.3 pg (27.0-31.0); Mean Corpuscular Volume 87.4 fL (78.0-102.0); Nucleated Red Blood Cells Absolute Auto 0.00 K/mm3 (0.00-0.00); Nucleated Red Blood Cells Perc 0.0 % (0-0.0); Platelet Count Result 263 K/mm3 (150-420); Red Blood Count 4.52 M/mm3 (4.20-5.40); White Blood Count 5.8 K/mm3 (4.8-10.8)
[2025-01-24 22:07] LABS: Alanine Aminotransferase 21 U/L (6-35); Albumin Level 4.3 g/dL (3.5-5.1); Alkaline Phosphatase 67 U/L (38-126); Anion Gap 6 mmol/L (4-12); Aspartate Amino Transferase 28 U/L (14-36); Bilirubin,Total 0.8 mg/dL (0.2-1.3); Blood Urea Nitrogen 19 mg/dL (7-17); Calcium 8.7 mg/dL (8.4-10.2); Carbon Dioxide 27 mmol/L (22-30); Chloride 103 mmol/L (98-107); Estimated CRCL calculation 49 ml/min; Estimated Glomerular Filt Rate > 60; Glucose 108 mg/dL (65-110); Osmolality Calculated 285 mOsm/kg (285-295); Potassium 3.8 mmol/L (3.4-5.0); Sodium 136 mmol/L (137-145); Total Protein 6.8 g/dL (6.3-8.2)
[2025-01-24 22:17] LABS: NT Pro B Type Natriuretic Pept 276 pg/mL (19.9-100)
[2025-01-24 22:19] LABS: Troponin I < 0.012 ng/mL (0.000-0.034)
[2025-01-24 23:35] VITALS: BMI 24.3
[2025-01-24] MEDS: HYDROmorphone HCL INJ (*CRX) 2 MG/ML VIAL 0.4 MG IV PUSH (23:58)
[2025-01-25] VITALS (7 sets, daily range): BP systolic 121–154; BP diastolic 61–67; PULSE 61–76; RESP 16–20; TEMP 36.3–37; O2SAT 94–99
--- NOTE | 2025-01-25 00:41 | ADMGEN ---
This patient, Janna Bustos, was admitted to 2nd Floor Room 205-1. Patient/family oriented to hospital policies and general routines including ID bracelet, bed and alarms, pain management, procedures, bathroom and other care routines, personal items, smoking policy, room service/diet, and visiting hours. Information on how to activate the Rapid Response Team has been discussed. Patient/Family are encouraged to report perceived risks to care and to ask questions if they do not understand what they are told or what they should do.
[2025-01-25] MEDS: HYDROmorphone HCL INJ (*CRX) 2 MG/ML VIAL 0.4 MG IV PUSH (05:10)
[2025-01-25] MEDS: ONDANSETRON HCL ODT 4 MG TABLET PO (08:40)
[2025-01-25] MEDS: NAPROXEN 250 MG TABLET PO (08:40)
[2025-01-25] MEDS: VENLAFAXINE HCL XR 75 MG CAP.ER.24H PO (08:41)
[2025-01-25] MEDS: ATORVASTATIN 10 MG TABLET PO (08:42)
[2025-01-25] MEDS: CHOLECALCIFEROL (VITAMIN D3) 10 MCG (400 UNITS) TABLET PO (08:42)
[2025-01-25] MEDS: PANTOPRAZOLE SOD SESQUIHYDRATE 20 MG TAB PO (08:42)
[2025-01-25] MEDS: FLUTICASONE PROPIONATE 0.05% NA SPR 16 GM BTL (*BKC) 2 SPRAY NASAL (08:42)
[2025-01-25] MEDS: ASCORBIC ACID 250 MG TABLET PO (08:51)
--- NOTE | 2025-01-25 09:10 | P.HP_ITS ---
H&P: HPI History of Present Illness Date/Time: 01/25/25 09:10 Chief Complaint: Fall with left sided chest pain Narrative: Patient is an 79-year-old female who presented to the emergency department after a mechanical fall at home with left-sided chest pain and neck pain. Patient reports she was caring her granddaughter when she tripped and fell down her 2 steps at home landing on her left-sided chest and neck with instant pain and stated it took her breath away. patient reports past medical history HTN, CHF, vitamin-D deficiency, and HLD. Patient did report shortness of breath, left-sided chest pain from injury but denied any nausea, vomiting, dizziness, abdominal. In the ED: in the emergency department vitals were stable and patient was on room air, labs unremarkable trauma workup did show a nondisplaced fracture of the left 8th, 9th and 10th ribs CT head negative for any acute intracranial issues, and cervical spine CT with no acute fracture or traumatic malalignment. patient continued to have severe moderate pain and was admitted to the medical unit for pain management. Patient was admitted to medical unit on follow-up assessment she continued to have moderate to severe sided pain and difficulty taking full inspiration patient does have a history frequent episodes of pneumonia some concern will need to monitor closely. patient did report this morning that her left ankle was painful as well in may twisted or fallen on that ankle as well. patient currently still on room air and vitals and labs reviewed and stable. Review of Systems Review of Systems: All systems reviewed & are unremarkable except as noted in HPI and below [facility] Past Medical History Medical History Diastolic dysfunction Bilateral leg edema Hypokalemia Hyperglycemia Lesion of right [place] ureter Lesion of spleen Vitamin D deficiency Overweight Fatigue Lung nodule Social History Social History Smoking status: Never smoker Second hand tobacco smoke exposure: Yes Alcohol intake: never Substance use: never Substance use type: does not use Lack of Transportation: No Lack of Food: Never True Current Housing: I Have Housing Concerned About Future Housing: No Difficulty Paying Gas/Electric Bills: No Difficulty Paying for Meds: No Currently Unemployed: No Education: High School Diploma/GED Difficulty w/ Childcare or Family Care: No Living arrangements: alone Occupation/Education: retired Gender identity (if verbalized by the patient): Female Sexual Orientation (if Verbalized by the Patient): Straight or Heterosexual Spiritual care concerns: No Agree to blood products: Yes Meds Home Medications and Allergies Home Medications ?Medication ?Instructions ?Recorded ?Confirmed ?Type alprazolam 0.25 mg tablet 0.25 mg PO HS PRN Sleep 06/02/22 01/24/25 History mometasone 0.1 % topical solution 1 applic topical DAILY PRN Itching 06/02/22 01/24/25 History amlodipine 5 mg tablet (Norvasc) 5 mg PO QAM #30 tabs 06/09/22 01/24/25 Rx benzonatate 100 mg capsule 100 mg PO TID PRN Cough 30 days 06/09/22 01/24/25 Rx #30 caps ascorbate calcium (vitamin C) 500 250 mg PO DAILY 07/31/22 01/24/25 History mg tablet cholecalciferol (vitamin D3) 10 10 mcg PO DAILY 07/31/22 01/24/25 History mcg (400 unit) capsule mecobalamin (vitamin B12) 500 mcg 500 mcg PO DAILY 07/31/22 01/24/25 History chewable tablet mometasone 50 mcg/actuation nasal 2 spray intranasal DAILY 07/31/22 01/24/25 History spray naproxen sodium 220 mg capsule 220 mg PO BID 07/31/22 01/24/25 History (Aleve) alendronate 70 mg tablet 70 mg PO WEEKLY 09/24/23 01/24/25 History venlafaxine 75 mg tablet,extended 75 mg PO DAILY 09/24/23 01/24/25 History release 24 hr cromolyn 100 mg/5 mL oral 100 mg PO QID 02/11/24 01/24/25 History concentrate furosemide 20 mg tablet 20 mg PO .prn 05/26/24 01/24/25 History pantoprazole 20 mg tablet,delayed 20 mg PO DAILY 05/26/24 01/24/25 History release atorvastatin 10 mg tablet 10 mg PO DAILY 12/01/24 01/24/25 History budesonide-formoterol HFA 160 1 puff inhalation Q12H 12/01/24 01/25/25 History mcg-4.5 mcg/actuation aerosol inhaler ondansetron HCl 4 mg tablet 4 mg PO DAILY 12/01/24 01/24/25 History Allergies Allergy/AdvReac Type Severity Reaction Status Date / Time adhesive tape Allergy Intermediate Rash Verified 01/25/25 00:24 gluten Allergy Mild Gastrointestinal Verified 01/25/25 00:24 Upset codeine Allergy Vomiting Verified 01/25/25 00:24 grape Allergy Unknown Verified 01/25/25 00:24 hydrocodone AdvReac Mild Dizziness Verified 01/25/25 00:24 peanut AdvReac Mild Rash Verified 01/25/25 00:24 Vital Signs Vital Signs - 24 hr 01/24/25 20:09 01/25/25 00:00 01/25/25 00:00 Temperature 96.7 F L 98.0 F Pulse Rate 70 65 65 Respiratory Rate 16 16 Blood Pressure 175/71 H 154/66 H Pulse Oximetry 100 99 Oxygen Delivery Room Air Room Air 01/25/25 04:00 01/25/25 07:36 01/25/25 07:41 Temperature 98.6 F Pulse Rate 61 65 65 Respiratory Rate 20 Blood Pressure 121/61 Pulse Oximetry 96 Oxygen Delivery Room Air Exam Const: General: no acute distress and uncomfortable Other: Pain the left side chest with any movement or inspiration HENMT: Face/Nose/Sinus: Normal nares present Mouth: Yes moist mucous membranes Eyes: General: appearance normal, both eyes and all related structures Sclera: sclerae normal Pupils: Equal, round and reactive pupils present Neck: Neck: supple and no JVD Chest: Other: Bruising to left sided chest wall Resp: Effort & Inspection: able to speak in complete sentences and decreased respiratory effort Auscultation: clear to auscultation bilaterally Other: Difficulty with inspiration Cardio: Rate: regular rate Rhythm: regular rhythm GI: GI Palp: Yes Soft to palpation Auscultation: normal bowel sounds Skin: General skin exam: normal color and no rashes or lesions noted Wounds: no wounds Neuro: Speech: normal speech Motor exam (neuro): 5/5 motor strength present throughout Sensory Exam: normal sensation Extrem: General: normal to inspection Psych: Mental Status: mental status grossly normal Affect: normal affect H&P: Results Labs Labs: Short CBC 01/24/25 Range/Units 21:52 WBC 5.8 (4.8-10.8) K/mm3 Hgb 13.7 (11.7-13.8) g/dL Hct 39.5 (35.0-42.0) % Plt Count 263 (150-420) K/mm3 BMP 01/24/25 21:52 Sodium 136 L Potassium 3.8 Chloride 103 Carbon Dioxide 27 BUN 19 H Creatinine 0.71 Glucose 108 Calcium 8.7 Cardiac Enzymes 01/24/25 Range/Units 21:52 Troponin I < 0.012 (0.000-0.034) ng/mL Liver Function 01/24/25 Range/Units 21:52 Total Bilirubin 0.8 (0.2-1.3) mg/dL AST 28 (14-36) U/L ALT 21 (6-35) U/L Alkaline Phosphatase 67 (38-126) U/L Albumin 4.3 (3.5-5.1) g/dL Imaging CT scan - chest: Radiologist's impression: EXAMINATION: CT diagnostic chest wo con DATE: 01/24/2025 20:54 INDICATION: FALL. LEFT SIDE CHEST WALL PAIN. LEFT LATERAL RIB PAIN. TECHNIQUE: Computed tomography (CT) of the chest was performed with 100 mL Omnipaque-350 intravenous contrast. Automated exposure control and iterative reconstruction technique were employed. The dose-length product was 490.55 mGy- cm. COMPARISON: X-ray chest 01/09/2012. FINDINGS: CHEST: Thoracic aorta: No significant dilation. Mild atherosclerotic calcification. Lung parenchyma and airways: Scattered calcified granulomas. Biapical pleural scarring. Bibasilar scar/atelectasis. Patent airways. Thoracic inlet, axillae and chest wall: No thyroid or soft tissue mass. No axillary lymphadenopathy. Mediastinum: No mass or lymphadenopathy. Heart and pericardium: Normal heart size. No pericardial effusion. Mild aortic valve calcification. Coronary artery calcifications: Mild. Pleura: No effusion or mass. Upper abdomen: 1.2 cm indeterminate density exophytic right midpole lesion. Hyperdense left renal proteinaceous or hemorrhagic cyst. Small splenic cyst or hemangioma. Uncomplicated duodenal diverticulum. Thoracic bones: Nondisplaced fractures of the left eighth anterolateral, and ninth lateral, and 10th posterior ribs. Chronic mild height loss at T7 and T8. Chronic appearing mild burst fracture at T11. IMPRESSION: Nondisplaced fractures of left eighth anterolateral, nidus lateral, and 10th posterior ribs. 1.2 cm indeterminate density exophytic right midpole lesion, recommend timely outpatient CT or MRI without and with contrast for further characterization. Assessment and Plan Assessment and plan (1) Multiple rib fractures: Qualifiers: Encounter type: initial encounter Fracture type: closed Laterality: left Qualified Code(s): S22.42XA - Multiple fractures of ribs, left side, initial encounter for closed fracture Code(s): S22.49XA - Multiple fractures of ribs, unspecified side, initial encounter for closed fracture Status: Acute Assessment and Plan: mechanical fall resulting left 8th, 9th, 10th rib fractures * Pain control with scheduled Percocet q.6 2.5 mg, Dilaudid for breakthrough pain * Toradol Q 8 15mg IVP no more in 5 days * lidocaine patch left-sided chest * incentive spirometer * oxygen p.r.n. * duo nebs p.r.n. for shortness of breath or wheezing * bowel regiment to reduce chances of constipation from narcotics (2) Accidental fall: Qualifiers: Encounter type: initial encounter Qualified Code(s): W19.XXXA - Unspecified fall, initial encounter Code(s): W19.XXXA - Unspecified fall, initial encounter Status: Acute Assessment and Plan: * PT/OT for evaluation patient currently lives at home alone to ensure she can perform her ADLs (3) HLD (hyperlipidemia): Code(s): E78.5 - Hyperlipidemia, unspecified Status: Acute Assessment and Plan: * continued atorvastatin (4) Diastolic dysfunction: Code(s): I51.89 - Other ill-defined heart diseases Status: Acute Assessment and Plan: * continued patient's Lasix as needed (5) Hypertension: Code(s): I10 - Essential (primary) hypertension Status: Acute Assessment and Plan: * continue patient's amlodipine * monitor BP per unit protocol Plan Code status: Full code per patient DVT prophylaxis: Lovenox Stress ulcer prophylaxis: Protonix 40 daily PT/OT notes: PT/OT evaluation pending Disposition: patient admitted to the medical unit will continue admission for pain management secondary to mechanical fall resulting in multiple rib fractures. PT/OT evaluation pending further evaluation of discharge needs. Quality VTE Prophylaxis VTE prophylaxis: pharmacologic ordered -Patient's previous records reviewed on admission -ER notes reviewed in detail on admission -discussed all findings and current treatment plan with patient/Family/POA -Consultations reviewed for recommendations -Patient's disposition for safe discharge discussed with casework manager Dictation performed by [employer] Fluency direct speech recognition software, therefore toxicologist variants and typographical errors may occur. Hospitalist MIPS Advance Care Plan I have confirmed that the patient's Advanced Care Plan is present, code status is documented, or surrogate decision maker is listed in patient medical record.: Yes Medication Reconciliation I have utilized all available resources to obtain, update and review the patients current medications (includes all prescriptions, OTC, herbals, cannabis, and nutritional supplements).: Yes The patient is not eligible for med reconciliation; the patient is in a emergent medical situation where delaying treatment would jeopardize the patients health.: No
[2025-01-25] MEDS: BUDESONIDE/FORMOTEROL (*SP) 160-4.5 MCG 6 GM INH 1 PUFF INHALATION ×2 (09:45→18:16)
[2025-01-25] MEDS: oxyCODONE HCL (*CRX) 2.5 MG TAB IR PO ×3 (09:50→20:43)
[2025-01-25] MEDS: KETOROLAC 15 MG/ML VIAL (*BKC) IV PUSH ×2 (09:51→16:53)
[2025-01-25] MEDS: LIDOCAINE 5% PATCH 1 PATCH TRANSDERM (09:51)
[2025-01-25] MEDS: SENNA/DOCUSATE SODIUM TABLET 1 TAB PO (16:53)
[2025-01-25] MEDS: [UNRECOGNIZED DRUG - OTHER] BY MOUTH (17:00)
[2025-01-25] MEDS: CROMOLYN BY MOUTH (17:00)
--- NOTE | 2025-01-25 17:09 | PHAR ---
The patient's home med of Cromolyn 100 MG/5ML ORAL SOLUTION has been verified with SRINIVASAN. TD
[2025-01-25] MEDS: ALPRAZolam (*CRX) 0.25 MG TABLET PO (20:43)
[2025-01-26] VITALS: BP 163/70; PULSE 69; RESP 16; TEMP 36.4; O2SAT 94
[2025-01-26] MEDS: KETOROLAC 15 MG/ML VIAL (*BKC) IV PUSH ×3 (01:12→17:48)
[2025-01-26] MEDS: oxyCODONE HCL (*CRX) 2.5 MG TAB IR PO ×4 (03:05→20:22)
[2025-01-26] MEDS: BUDESONIDE/FORMOTEROL (*SP) 160-4.5 MCG 6 GM INH 1 PUFF INHALATION ×2 (06:22→17:48)
[2025-01-26 07:12] LABS: Alanine Aminotransferase 18 U/L (6-35); Albumin Level 3.8 g/dL (3.5-5.1); Alkaline Phosphatase 58 U/L (38-126); Anion Gap 4 mmol/L (4-12); Aspartate Amino Transferase 25 U/L (14-36); Bilirubin,Total 0.9 mg/dL (0.2-1.3); Blood Urea Nitrogen 14 mg/dL (7-17); Calcium 7.8 mg/dL (8.4-10.2); Carbon Dioxide 30 mmol/L (22-30); Chloride 98 mmol/L (98-107); Estimated CRCL calculation 54 ml/min; Estimated Glomerular Filt Rate > 60; Glucose 87 mg/dL (65-110); Magnesium 1.8 mg/dL (1.6-2.3); Osmolality Calculated 273 mOsm/kg (285-295); Potassium 3.7 mmol/L (3.4-5.0); Sodium 132 mmol/L (137-145); Total Protein 6.2 g/dL (6.3-8.2)
[2025-01-26 07:32] LABS: Hematocrit 38.3 % (35.0-42.0); Hemoglobin 13.3 g/dL (11.7-13.8); Mean Corpuscular HGB Conc 34.7 g/dL (32-36); Mean Corpuscular Hemoglobin 30.4 pg (27.0-31.0); Mean Corpuscular Volume 87.4 fL (78.0-102.0); Platelet Count Result 244 K/mm3 (150-420); Red Blood Count 4.38 M/mm3 (4.20-5.40); White Blood Count 4.8 K/mm3 (4.8-10.8)
--- OUTSIDE RECORDS SUMMARY | 2025-01-26 07:34 | XMS_ITS | Encounter Summary ---
Author Organization [facility] Address [address] [place] [address] Phone Care Team Providers Care Riveting Machine Operator Name Role Phone Wali Chowdhury MD Primary Care Provider [phone] Rosy Llamas APN, UTILITY MAINTENANCE WORKER Unavailable Christi Rg MD Unavailable Reason for Visit * Reason Comments Medication Refill Encounter Details Date Type Department Care Team (Late st Contact Info) Description 11/05/2021 Refill [facility] [address] [place] [id number] Wali Chowdhury MD [address] [address] Medication Refill Social History Tobacco Use Types [...] CDT Gender Identity Female 05/07/2023 8:21 PM JOB CAPTAIN Sexual Orientation Not on file documented as [...] Date Type Provider Dept 09/27/21 Office Visit Wlai Chowdhury MD [facility] [place] 06/28/21 Telemedicine Rebeca Grimm PAC [facility] 03/29/21 Office Visit Marty Hoover APRN, CNP [facility] [place] 02/03/21 [facility] 12/06/20 Office Visit Marty Hoover APRN, C[facility] Showing recent visits within past 365 days and meeting all other requirements Future Appointments Date Type Provider Dept 12/27/21 Appointment Wali Chowdhury MD [facility] [place] Showing future appointments within next 90 days and meeting all other requirements documented in this encounter Plan of Treatment Upcoming Encounters Date Type Department Care Team (Late st Contact Info) Description 02/03/2025 10:30 AM CDT Office Visit [facility] - Family Medicine - [place] [address] [place] [address] Marty Hoover APRN, UTILITY MAINTENANCE WORKER [address] [address] documented as of this encounter Visit Diagnoses Diagnosis Anxiety Anxiety state, unspecified documented in this encounter Additional Health Concerns Infection Onset Date Last Indicated Resolved Time COVID - 19 05/29/2022 05/29/2022 05/31/2022 8:12 AM JOB CAPTAIN Respiratory Rule-Out 05/29/2022 05/29/2022 022 2:50 PM JOB CAPTAIN Respiratory Rule Out - RPA 05/30/2022 05/30/2022 1 08/01/2021 3:50 PM JOB CAPTAIN COVID - 19 01/24/2024 01/24/2024 01/24/2024 10:2 8 AM CDT COVID - 19 02/25/2024 02/25/2024 02/25/2024 7:42 PM CDT Respiratory Rule-Out 08/13/2024 08/13/2024 025 7:04 PM JOB CAPTAIN COVID - 19 09/10/2024 09/10/2024 09/10/2024 2:03 PM CDT Respiratory Rule-Out 09/10/2024 09/10/2024 025 2:02 PM CDT Assessment Noted Time PHQ-9 Depression Total Score: 1 09/17/19 21 1:27 PM CDT documented as of this encounter Care Teams Riveting Machine Operator Relationship Specialty Start Date End Date Wali Chowdhury MD [address] [facility] [address] [place] [address] PCP - General Family Medicine 05/10/15 Rosy Llamas, COAL SHOVELER, UTILITY MAINTENANCE WORKER [address] [facility] [address] [place] [address] Nurse Practitioner Advanced Practice Nurse 12/24/15 Christi Rg MD [address] [place] [address] Consulting Physician Obstetrics & Gynecology 11/26/18 documented as of this encounter
--- OUTSIDE RECORDS SUMMARY | 2025-01-26 07:34 | XMS_ITS | Encounter Summary ---
Author Organization [facility] Address [address] [place] [address] Phone Care Team Providers Care Welding Machine Operator Name Role Phone Wali Chowdhury MD Primary Care Provider [phone] Rosy Llamas APN, UX SPECIALIST Unavailable Christi Rg MD Unavailable Reason for Visit * Reason Comments Medication Refill Encounter Details Date Type Department Care Team (Late st Contact Info) Description 08/10/2021 Refill [facility] Family Medicine [facility] [address] [place] [id number] Wali Chowdhury MD [address] [address] Medication Refill Social History Tobacco Use Types [...] CDT Gender Identity Female 05/07/2023 8:[address] Sexual Orientation Not on file documented as [...] Dept 06/28/21 Telemedicine Rebeca Grimm PAC [facility] 03/29/21 Office Visit Marty Hoover APRN, [place] [facility] 02/03/21 Office Visit Wali Chowdhury MD [facility] 12/06/20 Office Visit Marty Hoover APRN, [place] [facility] 09/16/20 Office Visit Marty Hoover APRN, [place] [facility] Showing recent visits within past 365 days and meeting all other requirements Future Appointments Date Type Provider Dept 09/27/21 Appointment Wali Chowdhury MD [facility] Showing future appointments within next 90 days and meeting all other requirements WAY PAINTER documented in this encounter Plan of Treatment Upcoming Encounters Date Type Department Care Team (Late st Contact Info) Description 02/03/2025 10:30 AM CDT Office Visit [facility] - Family Medicine - [place] [address] [place] [address] Marty Hoover APRN, [place] [address] [address] documented as of this encounter Visit Diagnoses Diagnosis Anxiety Anxiety state, unspecified documented in this encounter Additional Health Concerns Infection Onset Date Last Indicated Resolved Time COVID - 19 05/29/2022 05/29/2022 05/31/2022 8:[address] Respiratory Rule-Out 05/29/2022 05/29/2022 022 2:[address] Respiratory Rule Out - RPA 05/30/2022 05/30/2022 1 08/01/2021 3:[address] COVID - 19 01/24/2024 01/24/2024 01/24/2024 10:2 8 AM CDT COVID - 19 02/25/2024 02/25/2024 02/25/2024 7:42 PM CDT Respiratory Rule-Out 08/13/2024 08/13/2024 025 7:[address] COVID - 19 09/10/2024 09/10/2024 09/10/2024 2:03 PM CDT Respiratory Rule-Out 09/10/2024 09/10/2024 025 2:02 PM CDT Assessment Noted Time PHQ-9 Depression Total Score: 1 09/17/19 21 1:27 PM CDT documented as of this encounter Care Teams Welding Machine Operator Relationship Specialty Start Date End Date Wali Chowdhury MD [address] [place] [address] [place] [address] PCP - General Family Medicine 05/10/15 Rosy Llamas, HEAD TRANSFER CLERK, UX SPECIALIST [address] [place] [address] [place] [address] Nurse Practitioner Advanced Practice Nurse 12/24/15 Christi Rg MD [address] [place] [address] Consulting Physician Obstetrics & Gynecology 11/26/18 documented as of this encounter
--- OUTSIDE RECORDS SUMMARY | 2025-01-26 07:34 | XMS_ITS | Encounter Summary ---
Author Organization [facility] Address [address] [place] [address] Phone Care Team Providers Care Nursing Home Assistant Administrator Name Role Phone Wali Chowdhury MD Primary Care Provider [phone] Rosy Llamas APN, TEAM PRIMARY CARE PHYSICIAN Unavailable Christi Rg MD Unavailable [phone] Reason for Visit * Reason Comments Medication Refill Encounter Details Date Type Department Care Team (Late st Contact Info) Description 09/23/2021 [facility] [place] [phone] Wali Chowdhury MD [address] [address] Medication Refill Social History Tobacco Use Types [...] CDT Gender Identity Female 05/07/2023 8:21 PM NECKTIES PAINTER Sexual Orientation Not on file documented [...] Provider Dept 06/28/21 Telemedicine Rebeca Grimm PAC [facility] 03/29/21 Office Visit Marty Hoover APRN, [place] [facility] 02/03/21 Office Visit Wali Chowdhury MD [facility] 12/06/20 Office Visit Marty Hoover APRN, [place] [facility] Showing recent visits within past 365 days and meeting all other requirements Future Appointments Date Type Provider Dept 09/27/21 Appointment Wali Chowdhury MD [facility] Showing future appointments within next 90 days and meeting all other requirements documented in this encounter Plan of Treatment Upcoming Encounters Date Type Department Care Team (Late st Contact Info) Description 02/03/2025 10:30 AM CDT Office Visit [facility] - Family Medicine - [place] [address] [place] [address] Marty Hoover APRN, [place] DELIA [address] [address] documented as of this encounter Visit Diagnoses Diagnosis Anxiety Anxiety state, unspecified documented in this encounter Additional Health Concerns Infection Onset Date Last Indicated Resolved Time COVID - 19 05/29/2022 05/29/2022 05/31/2022 8:12 AM NECKTIES PAINTER Respiratory Rule-Out 05/29/2022 05/29/2022 022 2:50 PM NECKTIES PAINTER Respiratory Rule Out - RPA 05/30/2022 05/30/2022 1 08/01/2021 3:50 PM NECKTIES PAINTER COVID - 19 01/24/2024 01/24/2024 01/24/2024 10:2 8 AM CDT COVID - 19 02/25/2024 02/25/2024 02/25/2024 7:42 PM CDT Respiratory Rule-Out 08/13/2024 08/13/2024 025 7:04 PM NECKTIES PAINTER COVID - 19 09/10/2024 09/10/2024 09/10/2024 2:03 PM CDT Respiratory Rule-Out 09/10/2024 09/10/2024 025 2:02 PM CDT Assessment Noted Time PHQ-9 Depression Total Score: 1 09/17/19 21 1:27 PM CDT documented as of this encounter Care Teams Nursing Home Assistant Administrator Relationship Specialty Start Date End Date Wali Chowdhury MD [address] [facility] [address] [place] [address] PCP - General Family Medicine 05/10/15 Rosy Llamas, PARTS IDENTIFIER, TEAM PRIMARY CARE PHYSICIAN [address] [facility] [address] [place] [address] Nurse Practitioner Advanced Practice Nurse 12/24/15 Christi Rg MD [address] [place] [address] Consulting Physician Obstetrics & Gynecology 11/26/18 documented as of this encounter
--- OUTSIDE RECORDS SUMMARY | 2025-01-26 07:34 | XMS_ITS | Encounter Summary ---
Author Organization [facility] Address [address] [place] [address] Phone Care Team Providers Care Medical Consultant Name Role Phone Wali Chowdhury MD Primary Care Provider [phone] [phone] Rosy Llamas APN, LEAD MASSAGE THERAPIST Unavailable Christi Rg MD Unavailable Reason for Visit * Reason Comments Medication Refill Encounter Details Date Type Department Care Team (Late st Contact Info) Description 01/30/2022 [facility] [place] [phone] Wali Chowdhury MD #[address] [address] Medication Refill Social History Tobacco Use Types [...] CDT Gender Identity Female 05/07/2023 8:21 PM MASTER SHEET CLERK Sexual Orientation Not on file documented [...] Dept 12/27/21 Office Visit Wali Chowdhury MD [facility] [place] 09/27/21 [facility] 06/28/21 Telemedicine Rebeca Grimm PAC [facility] 03/29/21 Office Visit Marty Hoover APRN, [place] [facility] 02/03/21 Office Visit Wali Chowdh[facility] Showing recent visits within past 365 days and meeting all other requirements Future Appointments Date Type Provider Dept 04/04/22 Appointment Wali Chowdhury MD [facility] [place] Showing future appointments within next 90 days and meeting all other requirements documented in this encounter Plan of Treatment Upcoming Encounters Date Type Department Care Team (Late st Contact Info) Description 02/03/2025 10:30 AM CDT Office Visit [facility] - Family Medicine - [place] [address] [place] [address] Marty Hoover APRN, LEAD MASSAGE THERAPIST #[address] [address] documented as of this encounter Visit Diagnoses Diagnosis Anxiety Anxiety state, unspecified documented in this encounter Additional Health Concerns Infection Onset Date Last Indicated Resolved Time COVID - 19 05/29/2022 05/29/2022 05/31/2022 8:12 AM MASTER SHEET CLERK Respiratory Rule-Out 05/29/2022 05/29/2022 022 2:50 PM MASTER SHEET CLERK Respiratory Rule Out - RPA 05/30/2022 05/30/2022 1 08/01/2021 3:50 PM MASTER SHEET CLERK COVID - 19 01/24/2024 01/24/2024 01/24/2024 10:2 8 AM CDT COVID - 19 02/25/2024 02/25/2024 02/25/2024 7:42 PM CDT Respiratory Rule-Out 08/13/2024 08/13/2024 025 7:04 PM MASTER SHEET CLERK COVID - 19 09/10/2024 09/10/2024 09/10/2024 2:03 PM CDT Respiratory Rule-Out 09/10/2024 09/10/2024 025 2:02 PM CDT Assessment Noted Time PHQ-9 Depression Total Score: 1 09/17/19 21 1:27 PM CDT documented as of this encounter Care Teams Medical Consultant Relationship Specialty Start Date End Date Wali Chowdhury MD [address] [facility] [address] [place] [address] PCP - General Family Medicine 05/10/15 Rosy Llamas, REPEAT PHOTOCOMPOSING MACHINE OPERATOR, LEAD MASSAGE THERAPIST #[address] [facility] [address] [place] [address] Nurse Practitioner Advanced Practice Nurse 12/24/15 Christi Rg MD [address] [place] [address] Consulting Physician Obstetrics & Gynecology 11/26/18 documented as of this encounter
--- OUTSIDE RECORDS SUMMARY | 2025-01-26 07:35 | XMS_ITS | Encounter Summary ---
Author Organization [facility] Address [address] [place] [address] Phone Care Team Providers Care Scroll Assembler Name Role Phone Wali Chowdhury MD Primary Care Provider [phone] [phone] Rosy Llamas APN, CABLE MOCK UP ASSEMBLER Unavailable Christi Rg MD Unavailable Reason for Visit * Reason Comments Medication Refill Encounter Details Date Type Department Care Team (Late st Contact Info) Description 04/22/2021 Refill [facility] #2 [place] [phone] Marty Hoover, MIRROR FABRICATION SUPERVISOR, CABLE MOCK UP ASSEMBLER #[address] [address] Medication Refill Social History Tobacco Use Types [...] CONSTRUCTION SUPERVISOR Sexual Orientation Not on file COVID-19 [...] [facility] Medicine - [place] #2 [place] [address] Marty Hoover APRN, CABLE MOCK UP ASSEMBLER #[address] [address] documented as of this encounter Visit Diagnoses Diagnosis Anxiety Anxiety state, unspecified documented in this encounter Additional Health Concerns Infection Onset Date Last Indicated Resolved Time COVID - 19 05/29/2022 05/29/2022 05/31/2022 8:12 AM CONSTRUCTION SUPERVISOR Respiratory Rule-Out 05/29/2022 05/29/2022 022 2:50 PM CONSTRUCTION SUPERVISOR Respiratory Rule Out - RPA 05/30/2022 05/30/2022 1 08/01/2021 3:50 PM CONSTRUCTION SUPERVISOR COVID - 19 01/24/2024 01/24/2024 01/24/2024 [...] documented as of this encounter Care Teams Scroll Assembler Relationship Specialty Start Date End Date Wali Chowdhury MD [address] [facility] [address] [place] [address] PCP - General Family Medicine 05/10/15 Rosy Llamas, HOSE MENDER, CABLE MOCK UP ASSEMBLER #[address] [facility] [address] [place] [address] Nurse Practitioner Advanced Practice Nurse 12/24/15 Christi Rg MD [address] [place] [address] Consulting Physician Obstetrics & Gynecology 11/26/18 documented as of this encounter
--- OUTSIDE RECORDS SUMMARY | 2025-01-26 07:35 | XMS_ITS ---
Author Organization [facility] Address [address] [place] [address] Phone Care Team Providers Care Dial Polisher Name Role Phone Wali Chowdhury MD Primary Care Provider [phone] Rosy Llamas APN, EVP Unavailable Christi Rg MD Unavailable [phone] OnCall Chronic Care Management Status:Identified (Enrolling) Start date:01/23/2025 Enrollment reason:Identified using claims or encounter data Related social drivers of health:Intimate Partner Violence, Social Connections, Alcohol Use, Tobacco Use, Financial Resource Strain,Depression, Stress, Physical Activity, Food Insecurity, Transportation Needs, Housing Stability, Utilities Continued Care and Services Coordination
--- OUTSIDE RECORDS SUMMARY | 2025-01-26 07:35 | XMS_ITS | Encounter Summary ---
Author Organization [facility] Address [address] [place] [address] Phone Care Team Providers Care School Bus Dispatcher Name Role Phone Wali Chowdhury MD Primary Care Provider [phone] [phone] Rosy Llamas APN, YACHT RIGGER Unavailable Christi Rg MD Unavailable [phone] Reason for Visit * Reason Comments Medication Refill Encounter Details Date Type Department Care Team (Late st Contact Info) Description 09/05/2023 Refill [facility] #2 [place] [phone] Wali Chowdhury MD #[address] [address] Medication Refill Social History Tobacco Use Types [...] CDT Gender Identity Female 05/07/2023 8:21 PM LOCKSTITCH MACHINE OPERATOR Sexual Orientation Not on file documented as of this encounter Miscellaneous Notes * Telephone Encounter - Linda Xiong RN - 09/05/2023 12:36 PM CDT Medication[facility]) [facility] Med[facility] Refill Standing Order for Pediatricand [...] 02/28/23 Office Visit Marty Hoover APRN, CNP [facility] [place] Showing recent visits within past 365 days and meeting all other requirements Future Appointments Date Type Provider Dept 09/17/23 Appointment Marty Hoover APRN, CNP [facility] [place] Showing future appointments within next 90 days and meeting all other requirements documented in this encounter Plan of Treatment Upcoming Encounters Date Type Department Care Team (Late st Contact Info) Description 02/03/2025 10:30 AM CDT Office Visit [facility] Medicine [place] [address]2 [place] [address] Marty Hoover APRN, [place] DELIA #[address] [address] documented as of this encounter Visit Diagnoses Diagnosis Chronic heart failure with preserved ejection fraction (HCC) documented in this encounter Additional Health Concerns Infection Onset Date Last Indicated Resolved Time COVID - 19 01/24/2024 01/24/2024 01/24/2024 10:2 8 AM CDT COVID - 19 02/25/2024 02/25/2024 02/25/2024 7:42 PM CDT Respiratory Rule-Out 08/13/2024 08/13/2024 025 7:04 PM LOCKSTITCH MACHINE OPERATOR COVID - 19 09/10/2024 09/10/2024 09/10/2024 2:03 PM CDT Respiratory Rule-Out 09/10/2024 09/10/2024 025 2:02 PM CDT Assessment Noted Time PHQ-9 Depression Total Score: 1 09/17/19 21 1:27 PM CDT documented as of this encounter Care Teams School Bus Dispatcher Relationship Specialty Start Date End Date Wali Chowdhury MD [address] [address] PCP - General Family Medicine 05/10/15 Rosy Llamas, PARKING CASHIER, YACHT RIGGER #[address] [address] Nurse Practitioner Advanced Practice Nurse 12/24/15 Christi Rg MD [address] [place] [address] Consulting Physician Obstetrics & Gynecology 11/26/18 documented as of this encounter
--- OUTSIDE RECORDS SUMMARY | 2025-01-26 07:35 | XMS_ITS | Encounter Summary ---
Author Organization [facility] Address [address] [place] [address] Care Team Providers Care Ambulance Paramedic Name Role Phone Unavailable Primary Care Provider Unavailsamantha e Encounter Details Date Type Department Care Team (Late st Contact Info) Description 12/13/2022 Lab Requisition [facility] - DermPath Lab [address] [place] [address] Daija Maria MD [address] [place], [place] [id number] Dermatitis, unspecified Social History Tobacco Use Types [...] AM CDT) Case Report Dermatopathology Report Case: [id number] Authorizing Provider: Daija Maria MD Collected: 12/13/2022 12:00 AM Ordering Location: [facility] DermPath Lab Received: 12/14/2022 06:08 AM Pathologist: Ann Almazan MD Specimen: Skin, left superior upper back 3:59 PM CDT DERMATOPATHOLOGY LABORATORY Final Diagnosis Specimen A. SKIN, left superior upper back: SUPERFICIAL PERIVASCULAR LYMPHOCYTIC INFILTRATE WITH EOSINOPHILS (L27.0) (see microscopic description and comment) (see direct immunofluorescence results [id number] ) 3 3:59 PM CDT DERMATOPATHOLOGY LABORATORY [...] characteristic determined by the Dermatopathology Laboratory at [facility], directed by Dr. Garrett Almazan. These tests need not be, and therefore are not, approved by the [place] Food and Drug Administration. The tests are used for clinical purposes. Billing Codes Specimen Charges Stain Charges 06706 1 3 3:59 PM CDT DERMATOPATHOLOGY LABORATORY Embedded Images 3 3:59 PM CDT DERMATOPATHOLOGY LABORATORY Pathology/Cytolog y TISSUE SPECIMEN FROM SKIN / Unknown 12/13/2022 12/14/2022 6:08 AM CDT Daija Maria MD LAB - PATHOLOGY/CYTOLOGY ESTHER DAVISON Final Result DERMATOPATHOLOGY LABORATORY [facility] - Department of Dermatology [address] [phone] documented in this encounter Visit Diagnoses Diagnosis Dermatitis, unspecified documented in this encounter
--- OUTSIDE RECORDS SUMMARY | 2025-01-26 07:35 | XMS_ITS | Encounter Summary ---
Author Organization [facility] Address [address] [place] [address] Phone Care Team Providers Care Trackless Trolley Driver Name Role Phone Wali Chowdhury MD Primary Care Provider [phone] Rosy Llamas APN, COMMODITY SUPERVISOR Unavailable Christi Rg MD Unavailable Reason for Visit * Reason Comments Medication Refill Encounter Details Date Type Department Care Team (Late st Contact Info) Description 03/21/2024 Refill [facility] - Family Medicine - [place] [address] [place] [phone] Marty Hoover, SPORTS EQUIPMENT REPAIRER, COMMODITY SUPERVISOR #[address] [address] Medication Refill Social History Tobacco Use Types Packs/Day Years Used Date Smoking Tobacco: Never Smokeless Tobacco: Never Alcohol Use Standard Drinks/Week Comments Never 0 (1 standard drink = 0.6 oz pur e alcohol) [facility] Utilities Answer Date Recorded In the past 12 months has [employer], gas, oil, or water company threatened to [...] often do you attend chur ch or episcopalian services? More than 4 times per year 02/26/2024 Do you belong to any clubs o r organizations such as latter-day groups, unions, fraternal or athletic groups, or [...] Total Score - Questions 1-9 0 02/24 [facility]at ional [facility] - Occupational Stress [...] a senior care (including now)? No 09/17/2023 Housing Stability Vital Sign Answer Brian e Recorded In the last 12 months, was t here a time when you were not able to pay the mortgage or rent on time? No 02/26/2024 In the past 12 months, how m any times have you moved where you were living? 0 02/26/2024 At any time in the past 12 m [facility], were you homeless or living in a senior care (including now)? No 02/26/2024 Education Answer Date [...] CDT Gender Identity Female 05/07/2023 8:21 PM GYROSCOPIC INSTRUMENT TESTER Sexual Orientation Not on file documented as of this encounter Miscellaneous Notes * Telephone Encounter - Linda Xiong RN - 03/21/2024 2:11 PM CDT Images from the original note were not included. Atorvastatin Calcium Dispensed Days Supply Quantity Provider Pharmacy ATORVASTATIN 10MG TABLETS 03/19/2024 90 90 Each Marty Hoover APRN, [place] DELIA [facility]. documented in this encounter Plan of Treatment Upcoming Encounters Date Type Department Care Team (Late st Contact Info) Description 02/03/2025 10:30 AM CDT Office Visit [facility] - Family Medicine - [place] [address] [place] [address] Marty Hoover APRN, COMMODITY SUPERVISOR #[facility] [address] [address] documented as of this encounter Visit Diagnoses Diagnosis Pure hypercholesterolemia documented in this encounter Additional Health Concerns Infection Onset Date Last Indicated Resolved Time Respiratory Rule-Out 08/13/2024 08/13/2024 025 7:04 PM GYROSCOPIC INSTRUMENT TESTER COVID - 19 09/10/2024 09/10/2024 09/10/2024 2:03 PM CDT Respiratory Rule-Out 09/10/2024 09/10/2024 025 2:02 PM CDT Assessment Noted Time PHQ-9 Depression Total Score: 0 03/17/20 24 8:35 AM CDT documented as of this encounter Care Teams Trackless Trolley Driver Relationship Specialty Start Date End Date Wali Chowdhury MD [facility] [address] PCP - General Family Medicine 05/10/15 Rosy Llamas APN, COMMODITY SUPERVISOR #[address] [address] Nurse Practitioner Advanced Practice Nurse 12/24/15 Christi Rg MD [address] [place] [address] Consulting Physician Obstetrics & Gynecology 11/26/18 documented as of this encounter
--- OUTSIDE RECORDS SUMMARY | 2025-01-26 07:35 | XMS_ITS | Clinical Summary ---
Author Organization [facility] [address] Address [address] [place] [address] Phone Care Team Providers Care Automotive Airconditioning Mechanic Name Role Phone Wali Chowdhury MD Primary Care Provider [phone] Allergies Active Allergy Reactions Criticality Noted Date [...] Department Care Team Description 01/15/2025 Orders Only [facility] [address] [place] [address] Lizeth Rosario, Screening mammogram for [...] on file Legal Sex Female 2:37 PM PSYCHOLOGY LECTURER Gender Identity Not on file Sexual Orientation [...] PM CDT Pulse 68 05/24/2015 1:06 PM PSYCHOLOGY LECTURER Temperature - - Respiratory Rate - - Oxygen Saturation 97% 05/24/2015 1:06 PM PSYCHOLOGY LECTURER Inhaled Oxygen Concentration - - Weight 73.3 [...] old F with given history of screening. Small Lot Operator/Model: [employer] ([id number]/N [id number]) CLINICAL INFORMATION: Current height: 64 inches Maximum [...] Kamron Shaikh M.D. MF: VITOR Report ID: [id number] Reading Location: [id number] Procedure Note Kamron Shaikh MD - 01/24/2022 EXAM DESCRIPTION: DEXA AXIAL SKELETON BONE DENSITY 1 OR MORE SITES REASON FOR STUDY: 76 y/o year old F with given history ofscreening. Small Lot Operator/Model: [employer] (S/N [id number]) CLINICAL INFORMATION: Current height: 64 inches Maximum [...] Kamron Shaikh M.D. MF: VITOR Report ID: [id number] Reading Location: [place] [address] Lizeth Rosario DO IMG DXA PROCEDURES Janelle l Result from Last 3 Months or Most Recently Relevant to Health Maintenance Insurance MEDICARE MEDICARE MEDICARE COMMERCIAL GENERIC Care Teams Automotive Airconditioning Mechanic Relationship Specialty Start Date End Date Wali Chowdhury MD 2 [facility] [place] [address] PCP - General 12/01/14
--- OUTSIDE RECORDS SUMMARY | 2025-01-26 07:35 | XMS_ITS | Encounter Summary ---
Author Organization [facility] Address [address] [place] [address] Phone Care Team Providers Care Bend Sorter Name Role Phone Wali Chowdhury MD Primary Care Provider [phone] [phone] Rosy Llamas APN, AUTO SLIP COVER INSTALLER Unavailable Christi Rg MD Unavailable Reason for Visit * Reason Comments Medication Refill Encounter Details Date Type Department Care Team (Late st Contact Info) Description 04/19/2023 Refill [facility] - Family Medicine - [place] #2 [place] [address] Marty Hoover, CUPOLA HOIST OPERATOR, AUTO SLIP COVER INSTALLER #[address] [address] Medication Refill Social History Tobacco Use Types [...] CDT Gender Identity Female 05/07/2023 8:21 PM DIRECTOR SYSTEMS Sexual Orientation Not on file documented as [...] 06/21/22 Office Visit Marty Hoover APRN, CNP [facility] [place] Showing recent visits within past 365 days and meeting all other requirements Future Appointments No visits were found meeting these conditions. Showing future appointments within next 90 days and meeting all other requirements documented in this encounter Plan of Treatment Upcoming Encounters Date Type Department Care Team (Late st Contact Info) Description 02/03/2025 10:30 AM CDT Office Visit [facility] - Family Medicine - [place] #[address] [place] [address] Marty Hoover APRN, [place] DELIA #[address] [address] documented as of this encounter Visit Diagnoses Diagnosis Anxiety Anxiety state, unspecified documented in this encounter Additional Health Concerns Infection Onset Date Last Indicated Resolved Time COVID - 19 01/24/2024 01/24/2024 01/24/2024 10:2 8 AM CDT COVID - 19 02/25/2024 02/25/2024 02/25/2024 7:42 PM CDT Respiratory Rule-Out 08/13/2024 08/13/2024 025 7:04 PM DIRECTOR SYSTEMS COVID - 19 09/10/2024 09/10/2024 09/10/2024 2:03 PM CDT Respiratory Rule-Out 09/10/2024 09/10/2024 025 2:02 PM CDT Assessment Noted Time PHQ-9 Depression Total Score: 1 09/17/19 21 1:27 PM CDT documented as of this encounter Care Teams Bend Sorter Relationship Specialty Start Date End Date Wali Chowdhury MD #[address] [address] PCP - General Family Medicine 05/10/15 Rosy Llamas, ABE TEACHER, AUTO SLIP COVER INSTALLER #[address] [address] Nurse Practitioner Advanced Practice Nurse 12/24/15 Christi Rg MD [address] [place], [place] [address], [place] [address] Consulting Physician Obstetrics & Gynecology 11/26/18 documented as of this encounter
--- OUTSIDE RECORDS SUMMARY | 2025-01-26 07:35 | XMS_ITS | Encounter Summary ---
Author Organization [facility] Address [address] [place] [address] Phone Care Team Providers Care Joiner Name Role Phone Wali Chowdhury MD Primary Care Provider [phone] [phone] Rosy Llamas APN, HAND PICKER Unavailable Christi Rg MD Unavailable Reason for Visit * Reason Comments Medication Refill Encounter Details Date Type Department Care Team (Late st Contact Info) Description 08/12/2020 Refill [facility] - Family Medicine - [place] #2 [place] [address] Marty Hoover, LVN LPN, HAND PICKER #[address] [address] Medication Refill Social History Tobacco Use Types [...] CDT Gender Identity Female 05/07/2023 8:21 PM WRAPPER SORTER Sexual Orientation Not on file documented as of this encounter Miscellaneous Notes * Telephone Encounter - Marty Hoover APN, CNP - 08/13/2020 8:33 AM CST PDMP reviewed PER SORTER * Telephone Encounter - Laurita Nunez RN [...] 1 month ago Hyperlipidemia, unspecified hyperlipidemia type [facility] Marty Madrigal APN, CNP 1 year ago Strain of thoracic back region [facility] Marty Madrigal APN, CNP 1 year ago Chronically on benzodiazepine therapy [facility] Wali Rangel MD 2 years ago Renal mass [facility] Marty Madrigal APN, CNP 2 years ago Overweight (BMI 25.0-29.9) [facility] Wali Rangel MD Upcoming Appointments Future Appointments In 1 month Clinic, [facility] Nurse [facility] JODIE Miguel In 4 months Wali Chowdhury MD [facility] TEST CENTER MANAGER - Recent and Past Visits Recent Visits Date Type Provider Dept 07/09/20 Office Visit Marty Hoover APN, CNP [facility] [place] Showing recent visits within past 460 days with a meds authorizing provider and meeting all other requirements Future Appointments No visits were found meeting these conditions. Showing future appointments within next 90 days with a meds authorizing provider and meeting all other requirements PER SORTER documented in this encounter Plan of Treatment Upcoming Encounters Date Type Department Care Team (Late st Contact Info) Description 02/03/2025 10:30 AM CDT [facility] Visit [facility] #2 [place] [address] Marty Hoover APRN, HAND PICKER #[address] [address] documented as of this encounter Visit Diagnoses Diagnosis Anxiety Anxiety state, unspecified documented in this encounter Additional Health Concerns Infection Onset Date Last Indicated Resolved Time COVID - 19 09/16/2020 09/16/2020 09/18/2020 6:37 AM CDT COVID - 19 05/29/2022 05/29/2022 05/31/2022 8:12 AM WRAPPER SORTER Respiratory Rule-Out 05/29/2022 05/29/2022 022 2:50 PM WRAPPER SORTER Respiratory Rule Out - RPA 05/30/2022 05/30/2022 1 08/01/2021 3:50 PM WRAPPER SORTER COVID - 19 01/24/2024 01/24/2024 01/24/2024 10:2 8 AM CDT COVID - 19 02/25/2024 02/25/2024 02/25/2024 7:42 PM CDT Respiratory Rule-Out 08/13/2024 08/13/2024 025 7:04 PM WRAPPER SORTER COVID - 19 09/10/2024 09/10/2024 09/10/2024 2:03 PM CDT Respiratory Rule-Out 09/10/2024 09/10/2024 025 2:02 PM CDT Assessment Noted Time PHQ-9 Depression Total Score: 0 11/08/19 11:11 AM CDT documented as of this encounter Care Teams Joiner Relationship Specialty Start Date End Date Wali Chowdhury MD #[address] [address] PCP - General Family Medicine 05/10/15 Rosy Llamas APN, HAND PICKER #[address] [place] [address] Nurse Practitioner Advanced Practice Nurse 12/24/15 Christi Rg MD [address] [place] [address] Consulting Physician Obstetrics & Gynecology 11/26/18 documented as of this encounter
--- OUTSIDE RECORDS SUMMARY | 2025-01-26 07:35 | XMS_ITS | Encounter Summary ---
Author Organization [facility] Address [address] [place] [address] Care Team Providers Care Kiln Puller Name Role Phone Unavailable Primary Care Provider Unavailsamantha e Encounter Details Date Type Department Care Team (Late st Contact Info) Description 12/14/2022 Lab Requisition [facility] DermPath Lab [address] [place] [address] Daija Maria MD [address] [place], [place] [id number] Social History Tobacco Use Types Packs/Day Years [...] CDT) Case Report Dermatopathol ogy Report Case: [id number] Authorizing Provider: Daija Maria MD Collected: 12/13/2022 12:00 AM Ordering Location: [facility] DermPath Lab Received: 12/14/2022 06:11 AM Pathologist: Ann Almazan MD Specimen: Skin, left mid-upper back 3:17 PM CDT DERMATOPATHOLOGY LABORATORY Final Diagnosis Specimen A. SKIN, left mid-upper back: NO IMMUNOPATHOLO GICAL ABNORMALITY (L98.9) (see fixed tissue results [id number]) 3 3:17 PM CDT DERMATOPATHOLOGY LABORATORY at [...] determined by the Dermatopathol ogy Laboratory at [facility], directed by Dr. Garrett Almazan. These tests need not be, and therefore are not, approved by the [place] Food and Drug Administratio n. The tests are used for clinical purposes. Billing Codes Specimen Charges Stain Charges 52637 26660 35781 67973 32829 16579 1 1 1 1 1 1 3 3:17 PM CDT DERMATOPATHOLOGY LABORATORY Embedded Images 3 3:17 PM CDT DERMATOPATHOLOGY LABORATORY Pathology/Cytolog y TISSUE SPECIMEN FROM SKIN / Unknown 12/13/2022 12/14/2022 6:11 AM CDT us Daija Maria MD LAB - PATHOLOGY/CYTOLOGY ABELINOE SAMAN Final Result DERMATOPATHOLOGY LABORATORY [facility] - Department of Dermatology [facility] Medicine [address] [place] [address], [address]rd Floor [address] [phone] documented in this encounter Visit Diagnoses Not on filedocumented in this encounter
--- OUTSIDE RECORDS SUMMARY | 2025-01-26 07:35 | XMS_ITS | Clinical Summary ---
Author Organization [facility] Address [address] [facility] [place] [address] Care Team Providers Care Sap Manager Name Role Phone Unavailable Primary Care Provider Unavailabl e Source Comments [facility],non-owned Affiliates and Associated Physician Practices is amultiple site organization consisting of ambulatory clinics and hospital sitesin [place], [place], [place] and [place]. This disclosure is being madepursuant to the Care Everywhere program and may not contain all information available regarding this patient. Last updated 18.[facility] [place] Social History Tobacco Use Types Packs/Day Years [...] patient's age to complete this topic Insurance [facility] MEDICARE [facility]
--- OUTSIDE RECORDS SUMMARY | 2025-01-26 07:35 | XMS_ITS | Referral Summary ---
Author Organization [facility] [address] Address [address] [place] [address] Phone Care Team Providers Care Hostler Helper Name Role Phone Wali Chwodhury MD Primary Care Provider [phone] [phone] Encounters Date Type Department Care Team Description 01/15/2025 Orders Only [facility] [address] [place] [address] Lizeth Rosario DO Screening mammogram [...] on file Legal Sex Female 2:37 PM SPOT WELDER Gender Identity Not on file Sexual Orientation Not on file Occupation Industry Job Start Date Job End Date Retired Not on file Not on file Not on file Last Filed Vital Signs Vital Sign Reading Time Taken Comments Blood Pressure 124/80 04/13/2023 4:00 PM CDT Pulse 68 05/24/2015 1:06 PM SPOT WELDER Temperature - - Respiratory Rate - - Oxygen Saturation 97% 05/24/2015 1:06 PM SPOT WELDER Inhaled Oxygen Concentration - - Weight 73.3 [...] old F with given history of screening. International Controller/Model: [employer] SL (S/N [id number]) CLINICAL INFORMATION: Current height: 64 inches Maximum [...] Kamron Shaikh M.D. MF: VITOR Report ID: [id number] Reading Location: [id number] Procedure Note Kamron Shaikh MD - 01/24/2022 EXAM DESCRIPTION: DEXA AXIAL SKELETON BONE DENSITY 1 OR MORE SITES REASON FOR STUDY: 76 y/o year old F with given history ofscreening. International Controller/Model: [employer] SL (S/N [id number]) CLINICAL INFORMATION: Current height: 64 inches Maximum [...] Kamron Shaikh M.D. MF: VITOR Report ID: [id number] Reading Location: [place] [address] Lizeth Rosario DO IMG DXA PROCEDURES Janelle l Result from Last 3 Months or Most Recently Relevant to Health Maintenance Insurance MEDICARE MEDICARE MEDICARE COMMERCIAL GENERIC Care Teams Hostler Helper Relationship Specialty Start Date End Date Wali Chowdhury MD [address] [address] PCP - General 12/01/14
--- OUTSIDE RECORDS SUMMARY | 2025-01-26 07:35 | XMS_ITS | Encounter Summary ---
Author Organization [facility] Address [address] [place] [address] Phone Care Team Providers Care Wedding Transportation Driver Name Role Phone Wali Chowdhury MD Primary Care Provider [phone] [phone] Rosy Llamas APN, CRYSTAL CUTTER Unavailable Christi Rg MD Unavailable Reason for Visit * Reason Comments Medication Refill Encounter Details Date Type Department Care Team (Late st Contact Info) Description 05/23/2023 Refill [facility] [address] [place] [phone] Wali Chowdhury MD [address] [address] Medication Refill Social History Tobacco Use Types [...] CDT Gender Identity Female 05/07/2023 8:21 PM MANAGER FORMS Sexual Orientation Not on file documented as [...] 06/21/22 Office Visit Marty Hoover APRN, CNP [facility] [place] Showing recent visits within past 365 days and meeting all other requirements Future Appointments No visits were found meeting these conditions. Showing future appointments within next 90 days and meeting all other requirements GER FORMS documented in this encounter Plan of Treatment Upcoming Encounters Date Type Department Care Team (Late st Contact Info) Description 02/03/2025 10:30 AM CDT Office Visit [facility] - Family Medicine - [place] [address] [place] [address] Marty Hoover APRN, CRYSTAL CUTTER #[address] [address] documented as of this encounter Visit Diagnoses Diagnosis Anxiety Anxiety state, unspecified documented in this encounter Additional Health Concerns Infection Onset Date Last Indicated Resolved Time COVID - 19 01/24/2024 01/24/2024 01/24/2024 10:2 8 AM CDT COVID - 19 02/25/2024 02/25/2024 02/25/2024 7:42 PM CDT Respiratory Rule-Out 08/13/2024 08/13/2024 025 7:04 PM MANAGER FORMS COVID - 19 09/10/2024 09/10/2024 09/10/2024 2:03 PM CDT Respiratory Rule-Out 09/10/2024 09/10/2024 025 2:02 PM CDT Assessment Noted Time PHQ-9 Depression Total Score: 1 09/17/19 21 1:27 PM CDT documented as of this encounter Care Teams Wedding Transportation Driver Relationship Specialty Start Date End Date Wali Chowdhury MD [address] [address] PCP - General Family Medicine 05/10/15 Rosy Llamas, MASTIC MAN, CRYSTAL CUTTER [address] [address] Nurse Practitioner Advanced Practice Nurse 12/24/15 Christi Rg MD [address] [place] [address] Consulting Physician Obstetrics & Gynecology 11/26/18 documented as of this encounter
--- OUTSIDE RECORDS SUMMARY | 2025-01-26 07:35 | XMS_ITS | Encounter Summary ---
Author Organization [facility] Address [address] [place] [address] Phone Care Team Providers Care Cellular Phone Repairer Name Role Phone Wali Chowdhury MD Primary Care Provider [phone] Rosy Llamas APN, NURSING TEACHER Unavailable Christi Rg MD Unavailable Reason for Visit * Reason Comments Medication Refill Encounter Details Date Type Department Care Team (Late st Contact Info) Description 09/27/2020 Refill [facility] [address] [place] [phone] Marty Hoover, MEDICARE BILLER, NURSING TEACHER #[address] [address] Medication Refill Social History Tobacco Use Types [...] CDT Gender Identity Female 05/07/2023 8:21 PM NURSE COMPANION Sexual Orientation Not on file COVID-19 Exposure [...] Pending Prescriptions Disp Refills ergocalciferol (VITAMIN D) 07218 UNIT Capsule [Pharmacy Med Name: VITAMIN D2 1.25MG(50,000 UNIT)] 12 Capsule 0 Sig: TAKE 1 CAPSULE BY MOUTH ONE TIME PER WEEK Off-Protocol Failed - 09/27/2020 1:30 PM Failed - Medication not assigned to a protocol, review manually. Passed - Valid encounter within last 12 months Past Office Visits Recent Outpatient Visits 1 week ago Other fatigue [facility] - Mraty Madrigal APN, [place] DELIA 2 months ago Hyperlipidemia, unspecified hyperlipidemia type [facility] - Marty Madrigal APN, [place] DEL[place] 1 year ago Strain of thoracic back region [facility] - Marty Madrigal APN, [place] 1 year ago Chronically on benzodiazepine therapy [facility] - Wali Rangel MD 2 years ago Renal mass [facility] - Marty Madrigal APN, CNP Upcoming Appointments Future Appointments In 1 week Lab, [facility] PHYSICIAN GROUP LAB, [facility] In 3 months Wali Chowdhury MD [facility] - [place], [facility] SCIENCE TECHNICIAN - Recent and Past Visits Recent Visits Date Type Provider Dept 09/16/20 Office Visit Marty Hoover APN, CNP [facility] 07/09/20 Office Visit Marty Hoover APN, CNP [facility] Showing recent visits within past 460 [...] Description 02/03/2025 10:30 AM CDT Office Visit [facility] [place] [address] [place] [address] Marty Hoover APRN, CNP #[address] [address] documented as of this encounter Visit Diagnoses Diagnosis Vitamin D deficiency Unspecified vitamin D deficiency documented in this encounter Additional Health Concerns Infection Onset Date Last Indicated Resolved Time COVID - 19 05/29/2022 05/29/2022 05/31/2022 8:12 AM NURSE COMPANION Respiratory Rule-Out 05/29/2022 05/29/2022 022 2:50 PM NURSE COMPANION Respiratory Rule Out - RPA 05/30/2022 05/30/2022 1 08/01/2021 3:50 PM NURSE COMPANION COVID - 19 01/24/2024 01/24/2024 01/24/2024 10:2 8 AM CDT COVID - 19 02/25/2024 02/25/2024 02/25/2024 7:42 PM CDT Respiratory Rule-Out 08/13/2024 08/13/2024 025 7:04 PM NURSE COMPANION COVID - 19 09/10/2024 09/10/2024 09/10/2024 2:03 PM CDT Respiratory Rule-Out 09/10/2024 09/10/2024 025 2:02 PM CDT Assessment Noted Time PHQ-9 Depression Total Score: 1 09/17/19 21 1:27 PM CDT documented as of this encounter Care Teams Cellular Phone Repairer Relationship Specialty Start Date End Date Wali Chowdhury MD [address] [place] [address] PCP - General Family Medicine 05/10/15 Rosy Llamas, BILINGUAL INTERPRETER, NURSING TEACHER [address] [place] [address] Nurse Practitioner Advanced Practice Nurse 12/24/15 Christi Rg MD [address] [place] [address] Consulting Physician Obstetrics & Gynecology 11/26/18 documented as of this encounter
--- OUTSIDE RECORDS SUMMARY | 2025-01-26 07:35 | XMS_ITS | Clinical Summary ---
Author Organization [facility] Address [address] [place] [address] Phone Care Team Providers Care Operations Expert Name Role Phone Wali Chowdhury MD Primary Care Provider [phone] Rosy Llamas APN, AIR CONDITIONING SPECIALIST Unavailable Christi Rg MD Unavailable [phone] Allergies Active Allergy Reactions Criticality Noted Date [...] therapy 11/07/2018 Hyperglycemia 05/13/2018 Lesion of right [place] ureter 04/09/2018 Lesion of spleen 03/01/2018 Hyperlipidemia [...] 11:59 PM CDT Hospital Encounter [facility] [address] [place] [address] Marty Hoover APRN, AIR CONDITIONING SPECIALIST Discharge Disposition: Discharged to home or Selfcare 01/03/2025 Travel 12/11/2024 Refill [facility] [address] [place] [address] Wali Chowdhury MD Medication Refill 11/25/2024 Results Follow-Up [facility] [place] [address] [place] [phone] Marty Hoover APRN, CNP ADULT TRANS THORACIC ECHO 2D COMPLETE 11/24/2024 1:00 PM CDT - 11/24/2024 11:59 PM CDT [facility] [address] [place] [phone] Marty Hoover APRN, CNP Discharge Disposition: Discharged to home or Selfcare 11/24/2024 12:00 PM CDT - 11/24/2024 12:59 PM CDT Hospital Encounter [facility] Cardiology Services [address] [place] [phone] Marty Hoover APRN, CNP Discharge Disposition: Discharged to home or Selfcare 11/23/2024 Travel 11/15/2024 Results Follow-Up [facility] [address] [place] [phone] Marty Hoover APRN, CNP CT RENAL W/WO CONTRAST 11/13/2024 3:00 PM CDT - 11/13/2024 11:59 PM CDT [facility] [address] [place] [address] Marty Hoover APRN, CNP Discharge Disposition: Discharged to home or Selfcare 11/12/2024 Travel 11/03/2024 1:00 PM CDT Office Visit [facility] [address] [place] [phone] Marty Hoover APRN, CNP Multifocal pneumonia (Primary Dx); Shortness of breath; Right renal mass Discharge Disposition: Discharged to home or Selfcare 11/03/2024 Telephone [facility] [address] [place] [address] Wali Chowdhury MD Medication Management 11/03/2024 Travel 10/27/2024 Results [facility] [place] [facility] [address] [place] [address] Marty Hoover, VAULT ATTENDANT, AIR CONDITIONING SPECIALIST CT CHEST W/O CONTRAST from Last 3 [...] drink = 0.6 oz pur e alcohol) [facility] Utilities Answer Date Recorded [...] week 02/26/2024 How often do you attend [facility] ch or catholic services? More than 4 times per year 02/26/2024 Do you belong to any clubs o r organizations such as mandaeism groups, unions, fraternal or athletic groups, or [...] Total Score - Questions 1-9 0 10/23 [facility] of Occupat ional Health - Occupational Stress [...] place to sleep or slept in a intermediate (including now)? No 09/17/2023 Housing Stability Vital Sign Answer Brian e Recorded In the last 12 months, was t here a time when you were not able to pay the mortgage or rent on time? No 02/26/2024 In the past 12 months, how m any times have you moved where you were living? 0 02/26/2024 At any time in the past 12 m [facility], were you homeless or living in a intermediate (including now)? No 02/26/2024 Education Answer Date [...] CDT Gender Identity Female 05/07/2023 8:21 PM OFFICE SYSTEM ANALYST Sexual Orientation Not on file Last Filed [...] [facility] [place] [address] [place] [address] Marty Hoover APRN, AIR CONDITIONING SPECIALIST #[address] [address] Health Maintenance Due Date Last Done Comments [...] this topic Medical Devices Implanted Type Area Electrodynamicist Device Identifier Shelf Expiration Date Model / Serial / Lot Slng Urth Align Spbc Pp Sprt Sys Hk - [id number] Implanted:Qty : 1 on 06/30/2015 by Rip Whitman MD at [facility] IMPLANT N/A: Urethra CR BARD / UROLOGICAL 04/30/2016 [id number] / / [id number] Procedures Procedure Name Priority Date/Time Associated Diagnosis [...] DENSITOMETRY AXIAL SKELETON Routine 05/22/2023 9:58 AM OFFICE SYSTEM ANALYST Asymptomatic postmenopausal status HEPATITIS C ANTIBODY Routine [...] Vinny Pagan M.D. AR: ELLIS Report ID: [id number] Reading Location: [id number] Procedure Note Vinny Pagan MD - 01/23/2025 [...] Vinny Pagan M.D. AR: ELLIS Report ID: [id number] Reading Location: [id number] IMPRESSION: Scattered granulomas and areas of peripheral [...] ml/m2 RESULTING AGENCY LVOT Peak Toby m/sec [id number] m/sec RESULTING AGENCY AV Peak Toby m/sec [...] name CHRISTOS AgustinO.B. 1945 Patient ID (I) [id number] Indications: Shortness of breath, Hypertension and Heart [...] Gradient: 3.47 mmHg Mean Gradient: 2 mmHg CA ED Velocity: 1.07 m/s Estimated PASP: 19.32 [...] lbs. BMI (BSA) 24.35 kg/m^2 (1.73 m^2) Photogrammetry Airplane Pilot Rupa Roche Interpreting Guerda Hernandez Referring Physician Abby GARCIA Physician Jaclyn Strong Procedure Note Kelle Anaya DO - 11/24/2024 Transthoracic Echocardiography Report (TTE) Patient name CHRISTOS Ricketts 1945 Patient ID (UPI) [id number] Indications: Shortness of breath, Hypertension and Heart [...] Gradient: 3.47 mmHg Mean Gradient: 2 mmHg CA ED Velocity: 1.07 m/s Estimated PASP: 19.32 [...] lbs. BMI (BSA) 24.35 kg/m^2 (1.73 m^2) Photogrammetry Airplane Pilot Rupa Roche Interpreting Guerda Hernandez Referring Physician Abby Strong us Marty Hoover VAULT ATTENDANT, AIR CONDITIONING SPECIALIST IMG ECHO ORDERAB LES Edited Result - [...] Russel Smith M.D. BS: TROY Report ID: [id number] Reading Location: [id number] Procedure Note Russel Smith MD - 11/15/2024 [...] Russel Smith M.D. BS: TROY Report ID: [id number] Reading Location: [id number] IMPRESSION: 1. Previously noted possible solid right [...] - 1.3 mg/dL 11/14/2024 7:29 AM CDT [facility] Blood 11/13/2024 3:29 PM CDT 11/14/2024 7:29 AM CDT us None Provider POINT OF CARE TESTING Final Resu lt [facility] [address] [place] [address] * [facility] BONE DENSITOMETRY AXIAL SKELETON (05/22/2023 9:58 AM OFFICE SYSTEM ANALYST) Anatomical Region Laterality Modality BODY N/A Computed Radiogr aphy 05/22/2023 11:2 7 AM OFFICE SYSTEM ANALYST Impressions 05/22/2023 11:29 AM OFFICE SYSTEM ANALYST IMPRESSION: Low Bone Mass. REFERENCE: Bone mineral [...] of Osteoporosis (http://www.nof.org/professionals/clinical-guidelines) Narrative 05/22/2023 11:29 AM OFFICE SYSTEM ANALYST EXAM DESCRIPTION: [facility] BONE DENSITOMETRY AXIAL SKELETON REASON FOR STUDY: 77 y/o year old F with given history of: Asymptomatic postmenopausal status Electrodynamicist/Model: [employer] (S/N [id number]) CLINICAL INFORMATION: Current height: 65 inches Maximum [...] signed by Kamron ADLER: VITOR Report ID: [id number] Reading Location: [place] [address] Procedure Note Kamron Shaikh MD - 05/22/2023 EXAM DESCRIPTION: [facility] BONE DENSITOMETRY AXIAL SKELETON REASON FOR STUDY: 77 y/o year old F with given history of: Asymptomatic postmenopausal status Electrodynamicist/Model: [employer] (S/N [id number]) CLINICAL INFORMATION: Current height: 65 inches Maximum [...] signed by Kamron ADLER: VITOR Report ID: [id number] Reading Location: [place] [address] IMPRESSION: Low Bone Mass. REFERENCE: Bone mineral [...] <1 S/CO 12/31/2017 10:42 PM CDT [facility] Comment: Signal/Cutoff ratio < 0.79 is Nondetected Signal/Cutoff ratio 0.80-0.99 is Grayzone Signal/Cutoff ratio > 0.99 is Detected Supplemental assays are recommended if signal/cutoff ratio is >/=1.00. Signal/cutoff ratio result >/= 5.00 is 97% predictive of positivity for recombinant immunoblot assay (RIBA) and will be reported to the [place] Department of Public Health as required. Blood specimen (specimen) Venipuncture / Unknown 12/31/2017 1:10 PM CDT 12/31/2017 1:50 PM CDT Wali Chowdhury MD CHEMISTRY ORDERABLES Janelle l Result [facility] [address] [place] [address], * HM COLONOSCOPY (12/21/2010) Wali Chowdhury MD PROCEDURE/MINOR SURGICAL ORDERABLES Final Result from Last 3 Months or Most Recently Relevant to Health Maintenance Insurance MEDICARE COMMERCIAL GENERIC Advance Directives Documents on File Type Date Recorded Patient Is Consultant Expl anation Power of Transformation Consultant for Health Care 06/05/2022 12:32 PM POA-, [...] measures to stabilize the patient. Care Teams Operations Expert Relationship Specialty Start Date End Date Wali Chowdhury MD [facility] [address] [address] PCP - General Family Medicine 05/10/15 Rosy Llamas, PRIVATE DUTY AIDE, AIR CONDITIONING SPECIALIST [address] [address] Nurse Practitioner Advanced Practice Nurse 12/24/15 Christi Rg MD [address] [place] [address] Consulting Physician Obstetrics & Gynecology 11/26/18
--- OUTSIDE RECORDS SUMMARY | 2025-01-26 07:35 | XMS_ITS | Encounter Summary ---
Author Organization [facility] Address [address] [place] [address] Phone Care Team Providers Care Clinical Sales Consultant Name Role Phone Wali Chowdhury MD Primary Care Provider [phone] [phone] Rosy Llamas APN, [facility] Unavailable Christi Rg MD Unavailable Reason for Visit * Reason Comments Medication Refill Encounter Details Date Type Department Care Team (Late st Contact Info) Description 09/26/2023 Refill [facility] [address] [place] [address] Wali Chowdhury MD #[address] [address] Medication Refill Social History Tobacco Use Types Packs/Day Years Used Date Smoking Tobacco: Never Smokeless Tobacco: Never Alcohol Use Standard Drinks/Week Comments No 0 (1 standard drink = 0.6 oz pur e alcohol) [facility] Utilities Answer Date Recorded In the past 12 months has [employer], gas, oil, or water company threatened to [...] Score - Questions 1-9 0 04/0 10/2021 [facility] of Occupat ional [facility] - Occupational Stress Questionnaire Answer Date [...] in a fpc (including now)? No 09/17/2023 Education Answer Date Recorded What is the highest level of school you have completed or the highest degree you have received? 12th grade 06/20/2022 Sexually Active Control Partners Comments Never Comments No Sex and Gender Information Value Date Recorded Sex Assigned at Not on file Legal Sex Female 11:45 PM CDT Gender Identity Female 05/07/2023 8:21 PM WRITER TECHNICAL PUBLICATIONS Sexual Orientation Not on file documented as [...] 09/17/23 [facility] Show[facility] recent visits within past 365 [...] Description 02/03/2025 10:30 AM CDT Office Visit [facility] - Family Medicine [facility] [address] [place] [address] Marty Hoover APRN, [place] DELIA #[address] [address] documented as of this encounter Visit Diagnoses Diagnosis Chronic heart failure with preserved ejection fraction (HCC) documented in this encounter Additional Health Concerns Infection Onset Date Last Indicated Resolved Time COVID - 19 01/24/2024 01/24/2024 01/24/2024 10:2 8 AM CDT COVID - 19 02/25/2024 02/25/2024 02/25/2024 7:42 PM CDT Respiratory Rule-Out 08/13/2024 08/13/2024 025 7:04 PM WRITER TECHNICAL PUBLICATIONS COVID - 19 09/10/2024 09/10/2024 09/10/2024 2:03 PM CDT Respiratory Rule-Out 09/10/2024 09/10/2024 025 2:02 PM CDT Assessment Noted Time PHQ-9 Depression Total Score: 1 09/17/19 21 1:27 PM CDT documented as of this encounter Care Teams Clinical Sales Consultant Relationship Specialty Start Date End Date Wali Chowdhury MD #[address] [address] PCP - General Family Medicine 05/10/15 Rosy Llamas APN, DIETETIC INTERN [address] [address] Nurse Practitioner Advanced Practice Nurse 12/24/15 Christi Rg MD ONE [address] [address] Consulting Physician Obstetrics & Gynecology 11/26/18 documented as of this encounter
--- OUTSIDE RECORDS SUMMARY | 2025-01-26 07:35 | XMS_ITS | Encounter Summary ---
Author Organization [facility] Address [address] [place] [address] Phone Care Team Providers Care Top Dyeing Machine Loader Name Role Phone Wali Chowdhury MD Primary Care Provider [phone] Rosy Llamas APN, CLOCK REPAIR TECHNICIAN Unavailable Christi Rg MD Unavailable [phone] Reason for Visit * Reason Comments Medication Refill Encounter Details Date Type Department Care Team (Late st Contact Info) Description 11/16/2023 Refill [facility] - [place] [address]2 [place] [phone] Marty Hoover, TESTING TECH, CLOCK REPAIR TECHNICIAN #[address] [address] Medication Refill Social History Tobacco Use Types Packs/Day Years Used Date Smoking Tobacco: Never Smokeless Tobacco: Never Alcohol Use Standard Drinks/Week Comments No 0 (1 standard drink = 0.6 oz pur e alcohol) [facility] Utilities Answer Date Recorded In the past 12 months has [employer], gas, oil, or water company threatened to [...] often do you attend chur ch or baptism services? More than 4 times per year 09/17/2023 Do you belong to any clubs o r organizations such as synagogue groups, unions, fraternal or athletic groups, or [...] Total Score - Questions 1-9 0 10/24 [facility] of Occupat ional [facility] - Occupational Stress Questionnaire Answer Date [...] in a intermediate (including now)? No 09/17/2023 Education Answer Date Recorded What is the highest level of school you have completed or the highest degree you have received? 12th grade 06/20/2022 Sexually Active Control Partners Comments Never Comments No Sex and Gender Information Value Date Recorded Sex Assigned at Not on file Legal Sex Female 11:45 PM CDT Gender Identity Female 05/07/2023 8:21 PM ATTENDANT CHILD ACTIVITY Sexual Orientation Not on file documented as of this encounter Miscellaneous Notes * Telephone Encounter - Linda Xiong RN - 11/16/2023 11:56 AM CDT Images from the original note were not included. amLODIPine Besylate Dispensed Days Supply Quantity Provider Pharmacy AMLODIPINE BESYLATE 5 MG TABS 11/12/2023 90 90 Tablet Wali Chowdhury MD [facility] #... AMLODIPINE BESYLATE 5MG TABLETS 08/19/2023 90 90 Each Marty Hoover APRN, CNP [facility] #... documented in this encounter Plan of Treatment Upcoming Encounters Date Type Department Care Team (Late st Contact Info) Description 02/03/2025 10:30 AM CDT [facility] Visit [facility] #2 [place] [address] Marty Hoover APRN, [place] #[address] [address] documented as of this encounter Visit Diagnoses Diagnosis Chronic heart failure with preserved ejection fraction (HCC) documented in this encounter Additional Health Concerns Infection Onset Date Last Indicated Resolved Time COVID - 19 01/24/2024 01/24/2024 01/24/2024 10:2 8 AM CDT COVID - 02/25/2024 02/25/2024 02/25/2024 7:42 PM CDT Respiratory Rule-Out 08/13/2024 08/13/2024 025 7:04 PM ATTENDANT CHILD ACTIVITY COVID - 09/10/2024 09/10/2024 09/10/2024 2:03 PM CDT Respiratory Rule-Out 09/10/2024 09/10/2024 025 2:02 PM CDT Assessment Noted Time PHQ-9 Depression Total Score: 1 09/17/19 21 1:27 PM CDT documented as of this encounter Care Teams Top Dyeing Machine Loader Relationship Specialty Start Date End Date Wali Chowdhury MD #[address] [facility] [address] [place] [address] PCP - General Family Medicine 05/10/15 Rosy Llamas, MEDICAL LIBRARIAN, CLOCK REPAIR TECHNICIAN #2 [facility] [address] [place] [address] Nurse Practitioner Advanced Practice Nurse 12/24/15 Christi Rg MD [address] [place] [address] Consulting Physician Obstetrics & Gynecology 11/26/18 documented as of this encounter
--- OUTSIDE RECORDS SUMMARY | 2025-01-26 07:35 | XMS_ITS | Encounter Summary ---
Author Organization [facility] Address [address] [place] [address] Phone Care Team Providers Care Powderman Name Role Phone Wail Chowdhury MD Primary Care Provider [phone] Rosy Llamas APN, ONION FARMER Unavailable Christi Rg MD Unavailable Reason for Visit * Reason Comments Medication Refill Encounter Details Date Type Department Care Team (Late st Contact Info) Description 08/02/2023 Refill [facility] #2 [place] [phone] Wali Chowdhury MD #[address] [address] Medication Refill Social History Tobacco Use Types [...] CDT Gender Identity Female 05/07/2023 8:21 PM TONSORIAL ARTIST Sexual Orientation Not on file documented as [...] 08/23/22 Office Visit Marty Hoover APRN, CNP [facility] [place] Showing recent visits within past 365 days and meeting all other requirements Future Appointments Date Type Provider Dept 08/29/23 Appointment Wali Chowdhury MD [facility] [place] Showing future appointments within next 90 days and meeting all other requirements ORIAL ARTIST documented in this encounter Plan of Treatment Upcoming Encounters Date Type Department Care Team (Late st Contact Info) Description 02/03/2025 10:30 AM CDT Office Visit [facility] - Family Medicine - [place] #2 [place] [address] Marty Hoover APRN, [place] #[address] [address] documented as of this encounter Visit Diagnoses Diagnosis Anxiety Anxiety state, unspecified documented in this encounter Additional Health Concerns Infection Onset Date Last Indicated Resolved Time COVID - 19 01/24/2024 01/24/2024 01/24/2024 10:2 8 AM CDT COVID - 02/25/2024 02/25/2024 02/25/2024 7:42 PM CDT Respiratory Rule-Out 08/13/2024 08/13/2024 025 7:04 PM TONSORIAL ARTIST COVID - 19 09/10/2024 09/10/2024 09/10/2024 2:03 PM CDT Respiratory Rule-Out 09/10/2024 09/10/2024 025 2:02 PM CDT Assessment Noted Time PHQ-9 Depression Total Score: 1 09/17/19 21 1:27 PM CDT documented as of this encounter Care Teams Powderman Relationship Specialty Start Date End Date Wali Chowdhury MD #[address] [address] PCP - General Family Medicine 05/10/15 Rosy Llamas APN, ONION FARMER #[address] [address] Nurse Practitioner Advanced Practice Nurse 12/24/15 Christi Rg MD [address] [facility] [address] [place] [address] Consulting Physician Obstetrics & Gynecology 11/26/18 documented as of this encounter
--- OUTSIDE RECORDS SUMMARY | 2025-01-26 07:36 | XMS_ITS | Encounter Summary ---
Author Organization [facility] Address [address] [place] [address] Phone Care Team Providers Care Knitter Operator Name Role Phone Wali Chowdhury MD Primary Care Provider [phone] Rosy Llamas APN, FAGOTING MACHINE OPERATOR Unavailable Christi Rg MD Unavailable [phone] Reason for Visit * Reason Comments Medication Refill Encounter Details Date Type Department Care Team (Late st Contact Info) Description 11/17/2022 Refill [facility] #2 [place] [phone] Wali Chowdhury MD #[address] [address] Medication Refill Social History Tobacco Use Types [...] CDT Gender Identity Female 05/07/2023 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 Showing future appointments within next 90 days and meeting all other requirements documented in this encounter Plan of Treatment Upcoming Encounters Date Type Department Care Team (Late st Contact Info) Description 02/03/2025 10:30 AM CDT Office Visit [facility] - Family Medicine - [place] #2 [place] [address] Marty Hoover APRN, FAGOTING MACHINE OPERATOR #[address] [address] documented as of this encounter Visit Diagnoses Diagnosis Anxiety Anxiety state, unspecified documented in this encounter Additional Health Concerns Infection Onset Date Last Indicated Resolved Time COVID - 19 01/24/2024 01/24/2024 01/24/2024 10:2 8 AM CDT COVID - 19 02/25/2024 02/25/2024 02/25/2024 7:42 PM CDT Respiratory Rule-Out 08/13/2024 08/13/2024 025 7:04 PM ROCKET ENGINE COMPONENT MECHANIC COVID - 19 09/10/2024 09/10/2024 09/10/2024 2:03 PM CDT Respiratory Rule-Out 09/10/2024 09/10/2024 025 2:02 PM CDT Assessment Noted Time PHQ-9 Depression Total Score: 1 09/17/19 21 1:27 PM CDT documented as of this encounter Care Teams Knitter Operator Relationship Specialty Start Date End Date Wali Chowdhury MD [address] [address] PCP - General Family Medicine 05/10/15 Rosy Llamas, AUTO TRANSMISSION TECHNICIAN, FAGOTING MACHINE OPERATOR #[address] [address] Nurse Practitioner Advanced Practice Nurse 12/24/15 Christi Rg MD [address] [place], [place] [address], [place] [address] Consulting Physician Obstetrics & Gynecology 11/26/18 documented as of this encounter
--- OUTSIDE RECORDS SUMMARY | 2025-01-26 07:36 | XMS_ITS | Encounter Summary ---
Author Organization [facility] Address [address] 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 Sexual Orientation Not on file documented as [...] Miguel 04/13/22 Office Visit Wali Chowdhury MD [facility] [place] Showing recent visits within [...] Description 02/03/2025 10:30 AM CDT Office Visit [facility] - Family Medicine - [place] #2 [place] [address] Marty Hoover APRN, [place] #[address] [address] documented as of this encounter Visit Diagnoses Diagnosis Anxiety Anxiety state, unspecified documented in this encounter Additional Health Concerns Infection Onset Date Last Indicated Resolved Time COVID - 19 01/24/2024 01/24/2024 01/24/2024 10:2 8 AM CDT COVID - 19 02/25/2024 02/25/2024 02/25/2024 7:42 PM CDT Respiratory Rule-Out 08/13/2024 08/13/2024 025 7:04 PM CURER ACID DRUM COVID - 19 09/10/2024 09/10/2024 09/10/2024 2:03 PM CDT Respiratory Rule-Out 09/10/2024 09/10/2024 025 2:02 PM CDT Assessment Noted Time PHQ-9 Depression Total Score: 1 09/17/19 21 1:27 PM CDT documented as of this encounter Care Teams Uniform Maker Relationship Specialty Start Date End Date Wali Chowdhury MD #[address] [address] PCP - General Family Medicine 05/10/15 Rosy Llamas, DIE MAKER ELECTRONIC, EPOXY SPECIALIST [address] [address] Nurse Practitioner Advanced Practice Nurse 12/24/15 Christi Rg MD [address] [place], [place] [address], [place] [address] Consulting Physician Obstetrics & Gynecology 11/26/18 documented as of this encounter
--- OUTSIDE RECORDS SUMMARY | 2025-01-26 07:36 | XMS_ITS | Encounter Summary ---
Author Organization [facility] Address [address] [place] [address] Phone Care Team Providers Care Console Assembler Name Role Phone Wali Chowdhury MD Primary Care Provider [phone] Rosy Llamas APN, ANIMAL TRAPPER Unavailable Christi Rg MD Unavailable Reason for Visit * Reason Comments Medication Refill Encounter Details Date Type Department Care Team (Late st Contact Info) Description 09/13/2022 Refill [facility] #2 [place] [phone] Wali Chowdhury MD #[address] [address] Medication Refill Social History Tobacco Use Types [...] CDT Gender Identity Female 05/07/2023 8:21 PM MACHINE TRACER Sexual Orientation Not on file COVID-19 Exposure Response Date Recorded In the last 10 days, have yo u been in contact with someone who was confirmed or suspected to have Coronavirus/COVID-19? No / Unsure 08/23/2022 1:54 PM MACHINE TRACER documented as of this encounter Miscellaneous Notes [...] Miguel 09/27/21 Office Visit Wali Chowdhury MD [facility] Showing recent visits within past 365 days and meeting all other requirements Future Appointments No visits were found meeting these conditions. Showing future appointments within next 90 days and meeting all other requirements documented in this encounter Plan of Treatment Upcoming Encounters Date Type Department Care Team (Late st Contact Info) Description 02/03/2025 10:30 AM CDT Office Visit [facility] - Family Medicine - [place] #2 [place] [address] Marty Hoover APRN, ANIMAL TRAPPER #2 [facility] [place] [address] documented as of this encounter Visit Diagnoses Diagnosis Anxiety Anxiety state, unspecified documented in this encounter Additional Health Concerns Infection Onset Date Last Indicated Resolved Time COVID - 19 01/24/2024 01/24/2024 01/24/2024 10:2 8 AM CDT COVID - 19 02/25/2024 02/25/2024 02/25/2024 7:42 PM CDT Respiratory Rule-Out 08/13/2024 08/13/2024 025 7:04 PM MACHINE TRACER COVID - 19 09/10/2024 09/10/2024 09/10/2024 2:03 PM CDT Respiratory Rule-Out 09/10/2024 09/10/2024 025 2:02 PM CDT Assessment Noted Time PHQ-9 Depression Total Score: 1 09/17/19 21 1:27 PM CDT documented as of this encounter Care Teams Console Assembler Relationship Specialty Start Date End Date Wali Chowdhury MD #[address] [place] [address] PCP - General Family Medicine 05/10/15 Rosy Llamas APN, ANIMAL TRAPPER #2 [facility] [address] Nurse Practitioner Advanced Practice Nurse 12/24/15 Christi Rg MD [address] [place] [address] Consulting Physician Obstetrics & Gynecology 11/26/18 documented as of this encounter
[2025-01-26 07:49] LABS: Band Neutrophils Percent 0 % (0-6); Basophils Absolute Manual 0.24 K/mm3 (0-0.1); Basophils Percent Manual 5 % (0-1); Eosinophils Absolute Manual 0.28 K/mm3 (0.02-0.50); Eosinophils Percent Manual 6 % (1-6); Lymphocytes Absolute Manual 1.39 K/mm3 (1.1-4.5); Lymphocytes Percent Manual 29 % (18-44); Monocytes Absolute Manual 0.48 K/mm3 (0.1-0.90); Monocytes Percent Manual 10 % (3-9); Neutrophils Absolute Manual 2.40 K/mm3 (1.3-6.7); Neutrophils Percent Manual 50 % (46-73); Schistocytes None Seen; Total Cells Counted 100
[2025-01-26 07:50] LABS: Anisocytosis 1+; Hypochromasia 2+; Poikilocytosis 1+
[2025-01-26 08:00] VITALS: BP 147/57; PULSE 62; RESP 18; TEMP 36.1; O2SAT 99
[2025-01-26] MEDS: [UNRECOGNIZED DRUG - OTHER] BY MOUTH ×3 (08:34→17:49)
[2025-01-26] MEDS: CROMOLYN BY MOUTH ×3 (08:34→17:49)
[2025-01-26] MEDS: ATORVASTATIN 10 MG TABLET PO (08:35)
[2025-01-26] MEDS: VENLAFAXINE HCL XR 75 MG CAP.ER.24H PO (08:36)
[2025-01-26] MEDS: CHOLECALCIFEROL (VITAMIN D3) 10 MCG (400 UNITS) TABLET PO (08:36)
[2025-01-26] MEDS: PANTOPRAZOLE SOD SESQUIHYDRATE 20 MG TAB PO (08:37)
[2025-01-26] MEDS: SENNA/DOCUSATE SODIUM TABLET 1 TAB PO ×2 (08:37→17:48)
[2025-01-26] MEDS: ASCORBIC ACID 250 MG TABLET PO (08:38)
[2025-01-26] MEDS: ENOXAPARIN 40 MG/0.4 ML SYRINGE SUB-Q (08:38)
[2025-01-26] MEDS: LIDOCAINE 5% PATCH 1 PATCH TRANSDERM (08:39)
--- NOTE | 2025-01-26 10:05 | P.PNIM_ITS ---
Progress Note: A&P Assessment and Plan (1) Multiple rib fractures: Qualifiers: Encounter type: initial encounter Fracture type: closed Laterality: left Qualified Code(s): S22.42XA - Multiple fractures of ribs, left side, initial encounter for closed fracture Code(s): S22.49XA - Multiple fractures of ribs, unspecified side, initial encounter for closed fracture Status: Acute Assessment and Plan: mechanical fall resulting left 8th, 9th, 10th rib fractures * Pain control with scheduled Percocet q.6 2.5 mg, Dilaudid for breakthrough pain * Toradol Q 8 15mg IVP no more in 5 days * lidocaine patch left-sided chest * incentive spirometer * oxygen p.r.n. * duo nebs p.r.n. for shortness of breath or wheezing * bowel regiment to reduce chances of constipation from narcotics (2) Accidental fall: Qualifiers: Encounter type: initial encounter Qualified Code(s): W19.XXXA - Unspecified fall, initial encounter Code(s): W19.XXXA - Unspecified fall, initial encounter Status: Acute Assessment and Plan: * PT/OT for evaluation patient currently lives at home alone to ensure she can perform her ADLs (3) HLD (hyperlipidemia): Code(s): E78.5 - Hyperlipidemia, unspecified Status: Acute Assessment and Plan: * continued atorvastatin (4) Diastolic dysfunction: Code(s): I51.89 - Other ill-defined heart diseases Status: Acute Assessment and Plan: * continued patient's Lasix as needed (5) Hypertension: Code(s): I10 - Essential (primary) hypertension Status: Acute Assessment and Plan: * continue patient's amlodipine * monitor BP per unit protocol Plan Code status: Full code per patient DVT prophylaxis: Lovenox Stress ulcer prophylaxis: Protonix 40 daily PT/OT notes: PT/OT evaluation pending Disposition: patient admitted to the medical unit will continue admission for pain management secondary to mechanical fall resulting in multiple rib fractures. PT/OT evaluation pending further evaluation of discharge needs. Time Spent With Patient Time with patient: 15 - 25 minutes Subjective Date/time seen: 01/26/25 10:05 Interval history: Patient is an 79-year-old female admitted for pain management after mechanical fall at home and fracturing 3 left ribs. 01/26/2025: Patient report moderate to severe pain with movement but controlled at rest. Denied SOB, N/V, dizziness but mild chest pain with inspiration as expected. Labs reviewed and vitals stable. PT/OT evaluation and providing techniques for at home. Review of Systems Review of Systems: All systems reviewed & are unremarkable except as noted in HPI and below Exam Const: General: no acute distress and uncomfortable Other: Pain the left side chest with any movement or inspiration HENMT: Face/Nose/Sinus: Normal nares present Mouth: Yes moist mucous membranes Eyes: General: appearance normal, both eyes and all related structures Sclera: sclerae normal Pupils: Equal, round and reactive pupils present Neck: Neck: supple and no JVD Chest: Other: Bruising to left sided chest wall Resp: Effort & Inspection: able to speak in complete sentences and decreased respiratory effort Auscultation: clear to auscultation bilaterally Other: Difficulty with inspiration Cardio: Rate: regular rate Rhythm: regular rhythm GI: Auscultation: normal bowel sounds Skin: General skin exam: normal color and no rashes or lesions noted Wounds: no wounds Neuro: Cranial nerves: Yes Equal, round and reactive pupils present Speech: normal speech Motor exam (neuro): 5/5 motor strength present throughout Sensory Exam: normal sensation Extrem: General: normal to inspection Psych: Mental Status: mental status grossly normal Affect: normal affect Objective Data Vital Signs Vital Signs: Vital Signs - 24 hr 01/25/25 16:00 01/25/25 20:00 01/26/25 00:00 Temperature 97.4 F L 97.6 F Pulse Rate 64 65 69 Respiratory Rate 20 18 16 Blood Pressure 145/67 H 163/70 H Pulse Oximetry 94 94 94 Oxygen Delivery Room Air Room Air Room Air 01/26/25 08:00 Temperature 97 F L Pulse Rate 62 Respiratory Rate 18 Blood Pressure 147/57 H Pulse Oximetry 99 Oxygen Delivery Room Air Intake/Output Intake/Output: Intake & Output 01/23/25 01/24/25 01/25/25 01/26/25 23:59 23:59 23:59 23:59 Intake Total 1740 975 Output Total 850 1050 Balance 890 -75 Meds/Results Medications: Active Medications Generic Name Dose Route Start Last Admin Trade Name Freq PRN Reason Stop Dose Admin Acetaminophen 650 mg 01/25/25 09:08 Acetaminophen 325 Mg Tablet PO Q4H PRN Mild Pain (1-3) or Fever Albuterol/Ipratropium 3 ml 01/24/25 22:45 Ipratropium 0.5 Mg/Albuterol Sulfate 2.5 Mg Ampul.Neb 3 Ml INHALATION Q6HRT PRN Shortness Of Breath Or Wheezing Alprazolam 0.25 mg 01/24/25 22:40 01/25/25 20:43 Alprazolam (*Crx) 0.25 Mg Tablet PO 0.25 mg HS PRN Administration Sleep Amlodipine Besylate 5 mg 01/25/25 09:00 01/26/25 08:36 Amlodipine Besylate 5 Mg Tablet PO 5 mg QAM ADA Administration Ascorbic Acid 250 mg 01/25/25 09:00 01/26/25 08:38 Ascorbic Acid 250 Mg Tablet PO 250 mg DAILY ADA Administration Atorvastatin Calcium 10 mg 01/25/25 09:00 01/26/25 08:35 Atorvastatin 10 Mg Tablet PO 10 mg DAILY ADA Administration Benzonatate 100 mg 01/24/25 22:40 Benzonatate 100 Mg Capsule PO TID PRN Cough Budesonide/Formoterol Fumarate 1 puff 01/25/25 08:45 01/26/25 06:22 Budesonide/Formoterol (*Sp) 160-4.5 Mcg 6 Gm Inh INHALATION 1 puff Q12HRT [facility] Administration Enoxaparin Sodium 40 mg 01/26/25 09:00 01/26/25 08:38 Enoxaparin 40 Mg/0.4 Ml Syringe SUB-Q 40 mg DAILY [facility] Administration Fluticasone Propionate 2 spray 01/25/25 09:00 01/26/25 08:39 Fluticasone Propionate 0.05% Na Spr 16 Gm Btl (*Bkc) NASAL Not Given QAM [facility] Furosemide 20 mg 01/24/25 23:42 Furosemide 20 Mg Tablet PO DAILY PRN Edema Hydromorphone HCl 0.5 mg 01/25/25 09:03 Hydromorphone Hcl Inj (*Crx) 2 Mg/Ml Vial IV PUSH Q3H PRN Pain Rated 7-10 Ketorolac Tromethamine 15 mg 01/25/25 09:00 01/26/25 08:39 Ketorolac 15 Mg/Ml Vial (*Bkc) IV PUSH 15 mg Q8H ADA Administration Lidocaine 1 patch 01/25/25 09:00 01/26/25 08:39 Lidocaine 5% Patch TRANSDERM 1 patch DAILY [facility] Administration Naloxone HCl 0.1 mg 01/25/25 09:08 Naloxone Hcl 0.4 Mg/Ml Vial IV PUSH Q2M PRN Opiate Reversal Nonformulary Drug 0 mg 01/25/25 17:05 01/26/25 08:34 Cromolyn 100 Mg/5ml BY MOUTH 02/24/25 17:04 100 mg Oral Solution TIDWM [facility] Administration Ondansetron HCl 4 mg 01/25/25 09:08 Ondansetron Inj 4 Mg/2 Ml Vial IV PUSH Q6H PRN Nausea And Vomiting Oxycodone HCl 2.5 mg 01/25/25 09:00 01/26/25 08:36 Oxycodone Hcl (*Crx) 2.5 Mg Tab Ir PO 2.5 mg Q6H [facility] Administration Pantoprazole Sodium 20 mg 01/25/25 09:00 01/26/25 08:37 Pantoprazole Sod Sesquihydrate 20 Mg Tab PO 20 mg DAILY [facility] Administration Polyethylene Glycol 17 gm 01/25/25 09:08 Polyethylene Glycol 3350 17 Gm Powd.Pack PO QAM PRN Constipation Senna/Docusate Sodium 1 tab 01/25/25 17:00 01/26/25 08:37 Senna/Docusate Sodium Tablet PO 1 tab BID [facility] Administration Venlafaxine HCl 75 mg 01/25/25 09:00 01/26/25 08:36 Venlafaxine Hcl Xr 75 Mg Cap.Er.24h PO 75 mg DAILY [facility] Administration Vitamin D 10 mcg 01/25/25 09:00 01/26/25 08:36 Cholecalciferol (Vitamin D3) 10 Mcg (400 Units) Tablet PO 10 mcg DAILY ADA Administration Radiology Results: ITS Impressions Head CT 01/24/25 20:59 IMPRESSION: No acute intracranial process. Cervical Spine CT 01/24/25 21:03 IMPRESSION: No acute fracture or traumatic malalignment in the cervical spine. Chest CT 01/24/25 21:09 IMPRESSION: Nondisplaced fractures of left eighth anterolateral, nidus lateral, and 10th posterior ribs. 1.2 cm indeterminate density exophytic right midpole lesion, recommend timely outpatient CT or MRI without and with contrast for further characterization. Foot X-Ray 01/25/25 20:40 IMPRESSION: No acute osseous finding in the left foot. Labs Labs: Laboratory Results - last 24 hr 01/26/25 06:51 WBC 4.8 RBC 4.38 Hgb 13.3 Hct 38.3 MCV 87.4 MCH 30.4 MCHC 34.7 RDW 11.9 Plt Count 244 MPV 9.4 Immature Gran % (Auto) Not Reportable Neut % (Auto) Not Reportable Lymph % (Auto) Not Reportable [place] % (Auto) Not Reportable Eos % (Auto) Not Reportable Baso % (Auto) Not Reportable Lymph # (Auto) Not Reportable [place] # (Auto) Not Reportable Eos # (Auto) Not Reportable Baso # (Auto) Not Reportable Abs Immat Gran (auto) Not Reportable Absolute Neuts (auto) Not Reportable Absolute Nucleated RBC Not Reportable Total Counted 100 Neutrophils % (Manual) 50 Band Neutrophils % 0 Lymphocytes % (Manual) 29 Monocytes % (Manual) 10 H Eosinophils % (Manual) 6 Basophils % (Manual) 5 H Nucleated RBC % Not Reportable Abs Neuts (Manual) 2.40 Abs Lymphs (Manual) 1.39 Abs Monocytes (Manual) 0.48 Absolute Eos (Manual) 0.28 Abs Basophils (Manual) 0.24 H Platelet Estimate Adequate Hypochromasia 2+ Poikilocytosis 1+ Anisocytosis 1+ Schistocytes None seen Sodium 132 L Potassium 3.7 Chloride 98 Carbon Dioxide 30 Anion Gap 4 BUN 14 D Creatinine 0.64 L Estim Creat Clear Calc 54 Estimated GFR > 60 Glucose 87 Calculated Osmolality 273 L Calcium 7.8 L Magnesium 1.8 Total Bilirubin 0.9 AST 25 ALT 18 Alkaline Phosphatase 58 Total Protein 6.2 L Albumin 3.8 Quality VTE Prophylaxis VTE prophylaxis: pharmacologic ordered -Patient's previous records reviewed on admission -ER notes reviewed in detail on admission -discussed all findings and current treatment plan with patient/Family/POA -Consultations reviewed for recommendations -Patient's disposition for safe discharge discussed with showcase trimmer Dictation performed by [employer] direct speech recognition software, therefore parachute marker variants and typographical errors may occur. Hospitalist MIPS Advance Care Plan I have confirmed that the patient's Advanced Care Plan is present, code status is documented, or surrogate decision maker is listed in patient medical record.: Yes Medication Reconciliation I have utilized all available resources to obtain, update and review the patients current medications (includes all prescriptions, OTC, herbals, cannabis, and nutritional supplements).: Yes The patient is not eligible for med reconciliation; the patient is in a emergent medical situation where delaying treatment would jeopardize the patients health.: No
[2025-01-26] MEDS: HYDROmorphone HCL INJ (*CRX) 2 MG/ML VIAL 0.5 MG IV PUSH (14:08)
[2025-01-26 16:00] VITALS: BP 146/61; PULSE 71; RESP 20; TEMP 36.3; O2SAT 95
[2025-01-26 20:00] VITALS: PULSE 74; RESP 18; O2SAT 95
[2025-01-26] MEDS: ALPRAZolam (*CRX) 0.25 MG TABLET PO (20:22)
[2025-01-27] VITALS: BP 143/77; PULSE 69; RESP 16; TEMP 36.5; O2SAT 93
[2025-01-27] MEDS: KETOROLAC 15 MG/ML VIAL (*BKC) IV PUSH ×2 (01:05→08:50)
[2025-01-27] MEDS: oxyCODONE HCL (*CRX) 2.5 MG TAB IR PO ×2 (03:05→08:49)
[2025-01-27 05:42] LABS: Hematocrit 36.7 % (35.0-42.0); Hemoglobin 12.7 g/dL (11.7-13.8); Immature Granulocyte Percent A 0.2 % (0.0-0.0); Lymphocytes Absolute Auto 1.11 K/mm3 (1.10-4.50); Mean Corpuscular HGB Conc 34.6 g/dL (32-36); Mean Corpuscular Hemoglobin 29.8 pg (27.0-31.0); Mean Corpuscular Volume 86.2 fL (78.0-102.0); Nucleated Red Blood Cells Absolute Auto 0.00 K/mm3 (0.00-0.00); Nucleated Red Blood Cells Perc 0.0 % (0-0.0); Platelet Count Result 236 K/mm3 (150-420); Red Blood Count 4.26 M/mm3 (4.20-5.40); White Blood Count 5.6 K/mm3 (4.8-10.8)
[2025-01-27 05:51] LABS: Alanine Aminotransferase 16 U/L (6-35); Albumin Level 3.6 g/dL (3.5-5.1); Alkaline Phosphatase 58 U/L (38-126); Anion Gap 0 mmol/L (4-12); Aspartate Amino Transferase 23 U/L (14-36); Bilirubin,Total 0.7 mg/dL (0.2-1.3); Blood Urea Nitrogen 12 mg/dL (7-17); Calcium 8.5 mg/dL (8.4-10.2); Carbon Dioxide 30 mmol/L (22-30); Chloride 100 mmol/L (98-107); Estimated CRCL calculation 59 ml/min; Estimated Glomerular Filt Rate > 60; Glucose 119 mg/dL (65-110); Magnesium 2.0 mg/dL (1.6-2.3); Osmolality Calculated 270 mOsm/kg (285-295); Potassium 3.6 mmol/L (3.4-5.0); Sodium 130 mmol/L (137-145); Total Protein 5.9 g/dL (6.3-8.2)
[2025-01-27] MEDS: BUDESONIDE/FORMOTEROL (*SP) 160-4.5 MCG 6 GM INH 1 PUFF INHALATION (06:31)
[2025-01-27 08:00] VITALS: BP 134/63; PULSE 80; RESP 18; TEMP 36.3; O2SAT 97
[2025-01-27] MEDS: [UNRECOGNIZED DRUG - OTHER] BY MOUTH (08:48)
[2025-01-27] MEDS: LIDOCAINE 5% PATCH 1 PATCH TRANSDERM (08:48)
[2025-01-27] MEDS: CROMOLYN BY MOUTH (08:48)
[2025-01-27] MEDS: SENNA/DOCUSATE SODIUM TABLET 1 TAB PO (08:49)
[2025-01-27] MEDS: VENLAFAXINE HCL XR 75 MG CAP.ER.24H PO (08:49)
[2025-01-27] MEDS: ENOXAPARIN 40 MG/0.4 ML SYRINGE SUB-Q (08:49)
[2025-01-27] MEDS: CHOLECALCIFEROL (VITAMIN D3) 10 MCG (400 UNITS) TABLET PO (08:49)
[2025-01-27] MEDS: PANTOPRAZOLE SOD SESQUIHYDRATE 20 MG TAB PO (08:49)
[2025-01-27] MEDS: ASCORBIC ACID 250 MG TABLET PO (08:49)
[2025-01-27] MEDS: ATORVASTATIN 10 MG TABLET PO (08:50)
--- NOTE | 2025-01-27 09:58 | P.DS_ITS ---
DS: Admitting Diagnosis Discharge Date 01/27/2025 Admitting Diagnosis Mechanical fall with Rib fractures DS: Discharge Diagnosis Discharge Diagnosis (1) Multiple rib fractures: Qualifiers: Encounter type: initial encounter Fracture type: closed Laterality: left Qualified Code(s): S22.42XA - Multiple fractures of ribs, left side, initial encounter for closed fracture Code(s): S22.49XA - Multiple fractures of ribs, unspecified side, initial encounter for closed fracture Status: Acute Assessment and Plan: mechanical fall resulting left 8th, 9th, 10th rib fractures * Pain control with scheduled Percocet q.6 2.5 mg, Dilaudid for breakthrough pain * Toradol Q 8 15mg IVP no more in 5 days * lidocaine patch left-sided chest * incentive spirometer * oxygen p.r.n. * duo nebs p.r.n. for shortness of breath or wheezing * bowel regiment to reduce chances of constipation from narcotics (2) Accidental fall: Qualifiers: Encounter type: initial encounter Qualified Code(s): W19.XXXA - Uns pecified fall, initial encounter Code(s): W19.XXXA - Unspecified fall, initial encounter Status: Acute Assessment and Plan: * PT/OT for evaluation patient currently lives at home alone to ensure she can perform her ADLs (3) HLD (hyperlipidemia): Code(s): E78.5 - Hyperlipidemia, unspecified Status: Acute Assessment and Plan: * continued atorvastatin (4) Diastolic dysfunction: Code(s): I51.89 - Other ill-defined heart diseases Status: Acute Assessment and Plan: * continued patient's Lasix as needed (5) Hypertension: Code(s): I10 - Essential (primary) hypertension Status: Acute Assessment and Plan: * continue patient's amlodipine * monitor BP per unit protocol DS: Summary Hospital Course Reason for hospitalization: Mechanical fall with Rib fractures Hospital Course: Admission: Patient is an 79-year-old female who presented to the emergency department after a mechanical fall at home with left-sided chest pain and neck pain. Patient reports she was caring her granddaughter when she tripped and fell down her 2 steps at home landing on her left-sided chest and neck with instant pain and stated it took her breath away. patient reports past medical history HTN, CHF, vitamin-D deficiency, and HLD. Patient did report shortness of breath, left-sided chest pain from injury but denied any nausea, vomiting, dizziness, abdominal. In the ED: in the emergency department vitals were stable and patient was on room air, labs unremarkable trauma workup did show a nondisplaced fracture of the left 8th, 9th and 10th ribs CT head negative for any acute intracranial is sues, and cervical spine CT with no acute fracture or traumatic malalignment. patient continued to have severe moderate pain and was admitted to the medical unit for pain management. Hospital course: Patient was admitted to medical unit on follow-up assessment she continued to have moderate to severe sided pain and difficulty taking full inspiration patient does have a history frequent episodes of pneumonia some concern will need to monitor closely. patient did report left ankle was painful as well in may twisted or fallen on that ankle as well. X-ray on left ankle showed no acute fracture. Continued with scheduled pain medication and IV for breakthrough pain with incentive spirometer as well as lidocaine patch. had patient work with physical and occupational therapy for education on ambulation at home and recommended to use her walker at for stability when ambulating until pain improves. patient labs were unremarkable and her vital stable she had overall improvement to pain management. patient was educated and instructed on activity limitations continue to taper down narcotics and transitioned to ibuprofen or acetaminophen and to continue to use her incentive spirometer at home. Patient was instructed that if she develops any respiratory difficulties or distress to seek medical attention. patient discharged home. Status at Discharge Functional status at discharge: uses cane/walker Overall status at discharge: patient is progressing back to baseline Time Spent with Patient Time attestation: Total time spent providing and/or coordinating discharge services: Time spent: Greater than 30 minutes Exam Const: General: no acute distress and uncomfortable Other: Pain the left side chest with any movement or inspiration HENMT: Face/Nose/Sinus: Normal nares present Mouth: Yes moist mucous membranes Eyes: General: appearance normal, both eyes and all related structures Sclera: sclerae normal Pupils: Equal, round and reactive pupils present Neck: Neck: supple and no JVD Chest: Other: Bruising to left sided chest wall Resp: Effort & Inspection: able to speak in complete sentences and decreased respiratory effort Auscultation: clear to auscultation bilaterally Other: Difficulty with inspiration Cardio: Rate: regular rate Rhythm: regular rhythm GI: Auscultation: normal bowel sounds Skin: General skin exam: normal color and no rashes or lesions noted Wounds: no wounds Neuro: Cranial nerves: Yes Equal, round and reactive pupils present Speech: normal speech Motor exam (neuro): 5/5 motor strength present throughout Sensory Exam: normal sensation Extrem: General: normal to inspection Psych: Mental Status: mental status grossly normal Affect: normal affect DS: Data Data Completed and Pending Labs on day of discharge: Labs from last 24 hours 01/27/25 05:29 WBC 5.6 RBC 4.26 Hgb 12.7 Hct 36.7 MCV 86.2 MCH 29.8 MCHC 34.6 RDW 12.1 Plt Count 236 MPV 9.2 Immature Gran % (Auto) 0.2 H Neut % (Auto) 60.5 Lymph % (Auto) 19.8 [place] % (Auto) 8.7 Eos % (Auto) 9.4 H Baso % (Auto) 1.4 H Lymph # (Auto) 1.11 [place] # (Auto) 0.49 Eos # (Auto) 0.53 H Baso # (Auto) 0.08 Abs Immat Gran (auto) 0.01 H Absolute Neuts (auto) 3.39 Absolute Nucleated RBC 0.00 Nucleated RBC % 0.0 Sodium 130 L Potassium 3.6 Chloride 100 Carbon Dioxide 30 Anion Gap 0 L BUN 12 Creatinine 0.58 L Estim Creat Clear Calc 59 Estimated GFR > 60 Glucose 119 H Calculated Osmolality 270 L Calcium 8.5 Magnesium 2.0 Total Bilirubin 0.7 AST 23 ALT 16 Alkaline Phosphatase 58 Total Protein 5.9 L Albumin 3.6 Imaging Radiologist's impression: Radiology Results: ITS Impressions Head CT 01/24/25 20:59 IMPRESSION: No acute intracranial process. Cervical Spine CT 01/24/25 21:03 IMPRESSION: No acute fracture or traumatic malalignment in the cervical spine. Chest CT 01/24/25 21:09 IMPRESSION: Nondisplaced fractures of left eighth anterolateral, nidus lateral, and 10th posterior ribs. 1.2 cm indeterminate density exophytic right midpole lesion, recommend timely outpatient CT or MRI without and with contrast for further characterization. Foot X-Ray 01/25/25 20:40 IMPRESSION: No acute osseous finding in the left foot. Discharge Plan Discharge Attending physician on discharge: Aaron Martínez Consulting providers: [place] Discharging Clinician: [place] Anticipated Discharge Date/Time: 01/27/25 09:06 Patient Disposition: Home Activity: as tolerated, follow weight bearing status and other - see discharge instructions Diet: regular Discharge Instructions: 1). rib fractures * Pain control with Percocet q.6 2.5 mg as needed taper down when pain improves transition to Ibuprofen or Tylenol * lidocaine patch left-sided chest * incentive spirometer * bowel regiment to reduce chances of constipation from narcotics with Senna and Miralax daily as needed * No heavy lifting nothing over 10 pounds * Advance activity as tolerated How can you care for yourself at home? ? Keep track of any new symptoms or changes in your symptoms. ? Rest until you feel better. ? Be safe with medicines. Take your medicines exactly as prescribed. Call your doctor if you think you are having a problem with your medicine. ? Do not drive after taking a prescription pain medicine. ? Ensure to follow-up with primary care physician as indicated and provide updated medication list provided to you at discharge. When should you call for help? Call 911 anytime you think you may need emergency care. For example, call if: ? You passed out (lost consciousness). Call your doctor now or seek immediate medical care if: ? You have new symptoms like fever, difficulty breathing, Chest pain, vomiting, or rash. ? You have new or different pain. ? You are confused and are having trouble thinking clearly. ? Your symptoms are getting worse. Watch closely for changes in your health, and be sure to contact your doctor if: ? You do not get better as expected. Patient Instructions: Antibiotic Form, Rib Fracture (DC) Patient Language: Taiwanese Stand Alone Forms: General Discharge Information Follow-up/Referrals: Trenton,Wali Davis MD [Primary Care Provider] - 3 Weeks Discharge Medications: New polyethylene glycol 3350 [Miralax] 17 gram Powder In Packet 17 g PO QAM PRN (Reason: Constipation) Qty: 14 0RF sennosides-docusate sodium [Senokot-S] 8.6-50 mg Tablet 1 tab PO BID Qty: 30 0RF lidocaine [Lidoderm] 5 % Adhesive Patch,Medicated 1 patch transdermal DAILY Qty: 30 0RF oxycodone-acetaminophen 2.5-325 mg tablet 1 tablet PO Q8H PRN (Reason: pain) Qty: 30 0RF Continued alprazolam 0.25 mg Tablet 0.25 mg PO HS PRN (Reason: Sleep) mometasone 0.1 % Solution 1 applic TOPICAL DAILY PRN (Reason: Itching) Rx Instructions: Apply for scalp itching amlodipine [Norvasc] 5 mg Tablet 5 mg PO QAM Qty: 30 0RF benzonatate 100 mg Capsule 100 mg PO TID PRN (Reason: Cough) 30 Days Qty: 30 0RF cromolyn 100 mg/5 mL Concentrate 100 mg PO QID Rx Instructions: before meals and at bedtime alendronate 70 mg tablet 70 mg PO WEEKLY venlafaxine 75 mg tablet extended release 24hr 75 mg PO DAILY pantoprazole 20 mg tablet,delayed release (DR/EC) 20 mg PO DAILY furosemide 20 mg tablet 20 mg PO .prn Rx Instructions: 20 mg orally; budesonide-formoterol 160-4.5 mcg/actuation HFA aerosol inhaler 1 puff inhalation Q12H ondansetron HCl 4 mg tablet 4 mg PO DAILY atorvastatin 10 mg tablet 10 mg PO DAILY naproxen sodium [Aleve] 220 mg capsule 220 mg PO BID mometasone 50 mcg/actuation spray,non-aerosol 2 spray intranasal DAILY Rx Instructions: administer into each nostril ascorbate calcium (vitamin C) 500 mg tablet 250 mg PO DAILY cholecalciferol (vitamin D3) 10 mcg (400 unit) capsule 10 mcg PO DAILY mecobalamin (vitamin B12) 500 mcg tablet,chewable 500 mcg PO DAILY Date of admission: 01/24/25 22:39 Primary Care Provider: Trenton,Wali Davis Admitting Provider: Aaron Martínez Attending physician on admission: Aaron Martínez Condition: Stable Quality VTE Prophylaxis VTE prophylaxis: pharmacologic ordered -Patient's previous records reviewed on admission -ER notes reviewed in detail on admission -discussed all findings and current treatment plan with patient/Family/POA -Consultations reviewed for recommendations -Patient's disposition for safe discharge discussed with human services case manager Dictation performed by [employer] direct speech recognition software, therefore mainframe programmer analyst variants and typographical errors may occur. Hospitalist MIPS Heart Failure (Exclusion) Patient has history of Heart Transplant or Left Ventricular Assistive Device?: N o IF YES, STOP HERE Heart Failure (Qualifier) Patient has current or prior documentation of LVEF less than or equal to 40%, or mod/servere depressed LVSF?: No IF NO, STOP HERE
--- NOTE | 2025-01-27 10:50 | PC.NURSE ---
Discharge instructions reviewed with family and patient, verbalized understanding, advised on taking pain medications and fall risk factors, voiced understanding patient alert and oriented x4 on discharge and agreeable to plan of care. Allowed time for questions, answered all questions asked, did give phone number to call for further questions post discharge.
--- NOTE | 2025-02-02 08:49 | PC.NURSE ---
Discharge call back made, unable to leave messages on both home and cell phone.
--- NOTE | 2025-02-03 10:10 | PC.NURSE ---
Spoke with Janna for discharge call back. She is on her way to the PCP at this time. She informs she did not have any questions or concerns regarding her discharge. She feels she was treated very well and happy with the care she recieved.
== END 2025-01-27 10:50 | disposition home or self-care (01) ==
LOC: CHSED 22:48 → CHS2ND 01-25 08:18
PROVIDERS: Nurse Practitioner Family; Admitting Provider Internal Medicine; Emergency Provider Internal Medicine Critical Care Medicine; PCP Family Medicine; Visit Provider Internal Medicine
DX: S22.42XA Multiple fractures of ribs, left side, initial encounter for closed fracture (principal); W19.XXXA Unspecified fall, initial encounter; E78.5 Hyperlipidemia, unspecified; E55.9 Vitamin D deficiency, unspecified; I11.0 Hypertensive heart disease with heart failure; I50.32 Chronic diastolic (congestive) heart failure
CPT/HCPCS: 36415; 70450; 71250; 72125; 73620; 80053; 83605; 83735; 83880; 84484; 85025; 93005; 96372; 96374; 96375; 96376; 97161; 97165; 97530; 99285; A9270; G0378; J1171; J1644; J1650; J1885